=== PATIENT | male | born 1960 | race Caucasian/White ===

== ENCOUNTER 2017-07-14 18:17 | Inpatient (IN) | payer MEDICARE, MEDICAID ==
[2017-07-14] MEDS ORDERED: Cefepime 2 GM in Sodium Chloride 0.9% 100 ML IV ONE (19:39)
[2017-07-14] MEDS ORDERED: Sodium Chloride 0.9% 500 ML IV ONE (19:44)
[2017-07-14] MEDS ORDERED: Piperacillin Sodium/Tazobact 3.375 gm Vial IV ONE (20:21)
--- NOTE | 2017-07-14 20:50 | ER Physician Documentation ---
DATE OF SERVICE: 07/14/2017 EMERGENCY ROOM EVALUATION AND TREATMENT TIME OF EVALUATION: 1919. The patient is a 56-year-old male patient. The patient is a full code patient. No known allergies were detected. He came to the Emergency Room. He was seen by Dr. Nava from [facility] I believe, [facility]. He has allergies, which are none known. He came here because he has a decubitus wound ulcer for checkup, for culture, for treatment, etc. HISTORY OF PRESENT ILLNESS: The patient is noncommunicative. He does not speak anything hence most of the history was taken by looking at the current records that came from the other hospitals. History of present illness could not be obtained and on physical examination, the patient is found to be opening his eyes. He does not answer to any questions. 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 His both lower extremities have sacral boots to prevent decubitus. 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 He has a very tight rigid. He does not move his left hand other than a few inches in the left hand up to the wrist or so. The patient's general examination otherwise shows no edema over the legs. He is adequately built, but poorly nourished. There is no edema, no cyanosis, no petechia, no ecchymosis. Eyes are normal. Conjunctivae pink, sclerae white. Head, ENT appears to be normal. There is no cyanosis, petechia or ecchymosis is noted. Vital signs were taken by the triage nurse shows temperature which is 97.7, pulse of 71, respirations 18, blood pressure 129/70, and 97% saturation. Height is 6 feet 4 inches, weight 250 pounds. HOSPITAL COURSE: The patient's diagnosis that he carries includes that he has Alzheimer's disease. The patient in terms of emergency one needs to contact Dania Calvo [phone]. The patient on examination of the heart reveals that the heart sounds are normal. So, fourth heart sound is heard. Third heart sound is absent. No abnormal murmur, click or rub. No surgical scar on the chest wall. No pacemakers are noted. Lungs reveal trachea to be central. Few crackles audible at the bases, occasional rhonchi is audible. Abdomen is obese, otherwise benign and negative. There is no evidence of any gastric tube. Central nervous system, as I mentioned, disoriented to time and place. Does not speak. The patient does not know where he is. ALLERGIES: Allergies to some vaccine. The patient's list of the diagnosis that came from the [facility] included urinary tract infection, orthostasis, muscle wasting, benign prostatic hypertrophy, epilepsy, peripheral vascular disease, polyneuropathy, morbid obesity. He is morbidly obese, more in the upper extremities, lower extremities are very thin. Has a tattoo scar in the lower extremities. The patient's primary physician is Dr. William Nava. Address is [address] [place] [address]. His office address is [phone]. The [facility] at the [facility] was admitted on 09/02/2016. At that time, he was admitted with the diagnosis of pyelonephritis and perinephric abscess, infected sacral decubitus stage III and febrile status, Alzheimer's dementia, peripheral vascular disease, cataracts. He is diagnosed with dementia and psych disorder. The patient has a . Rehab potential was written as fair. I do not see how he could be recovered. The patient's history and physical which was done on 08/19/2016 showed that he had advanced dementia, who is living in [facility]. He has hypertension, degenerative joint disease, obesity, history of recurrent urinary tract infection and he had been getting wound care physician, who comes to the facility, brought to the Emergency Room after he received a call from the [facility] with fever. Infected decubitus. He has a healthcare marketer. The rest of the diagnosis in the past is same as I mentioned earlier including obesity, dementia, hypertension, peripheral vascular disease, degenerative joint disease, sacral decubitus ulcer, and psychiatric disorder. Medications were reviewed. SOCIAL HISTORY: He was living in the [facility]. In the past, he had stage III ulcers. He had infection with temperature of 103 degrees Fahrenheit that was in 2017. He had a sacrococcygeal decubitus ulcer, stage 3 with the surrounding tissue being marked with edema and some excoriation, infections shows urinary tract infection along with infected decubitus wound. Could not rule out the possibility of pyelonephritis in the presence of history of recurrent urinary tract infection. The patient at that time, may need a decubitus. I am not sure whether decubitus debridement was done or not, but let see if I can find some more data. The patient will be given air mattress and wound care along with Plastic Surgery evaluation. Ultrasound etc. will be done. Nutritional support will be given. ENT consultation will be requested. The patient was given tramadol at that time and other medications, which included hydrochlorothiazide, gabapentin, lactobacillus, Plavix 75 mg, Keppra 500 mg 5 mL q.12 hourly for seizure disorder, Aricept 10 mg once a day, Vasotec 10 mg once a day, Flomax 0.4 mg, Zanaflex 1 mg p.o. 3 times a day, cranberry extract, Prilosec 20 mg once a day, Ballantine 1 tablet p.o. daily 30 minutes before wound treatment. We will monitor seizure activity. Monitor abnormal bleeding. Berry catheter was inserted at that time. Side rails were up at that time. The patient's chest x-ray did not show any pathology, this was on 06/21/2017. Chest x-ray was done in this year, it was found to be negative. Heart size was found to be normal. No infiltrates are seen. No pulmonary edema was seen. Mild spondylosis of the spine was noted. Hand x-rays were done. Fingers are contracted, which limits evaluation. No acute fracture or dislocation was seen. Soft tissues were unremarkable. No erosive changes were seen. Limited exam due to contractures. No obvious acute fracture or dislocation was seen. White count which was done 12/15, was high with shift to the left. Electrolytes showed potassium to be 3.2. KUB showed findings were suggestive for KUV. Chest x-ray shows no acute findings were seen. This was this month only that I am dictating. His lab workup that was done over here. is supposed to be involved in the care of this patient and there was allergic to vaccine was written. In conclusion, the patient has sacroiliac decubitus, ischial decubitus. At present, we will get the culture done and start the patient on antibiotics. IV fluids will be given, IV antibiotics will be given. The patient's other diagnoses include possibility patient had recurrent urinary tract infection that needs to be ruled out again. He might be having some pyelonephritis, one does not know. We will check it out. Quadriplegia with some movements into the left arm, tremors in the left upper arm. Dementia, Alzheimer disease, peripheral vascular disease. The patient has hypertension. Other diagnoses the patient has includes Alzheimer's disease, muscle waste suggesting he has benign prostatic hypertrophy, epilepsy, peripheral vascular disease, peripheral neuropathy, morbid obesity, etc. The patient will be given low air loss mattress for skin management. The patient will get some Ballantine for pain. Berry catheter if Dr. Nava wants it, will be inserted. The patient has obesity, sepsis, hypertension, peripheral vascular disease, psychiatric disorders. The patient needs total care. Most likely, the patient will need admission to the hospital. The patient probably has GERD also. I am not sure why Plavix has been given. I am not sure whether the patient has coronary artery disease or whether it is given for unstable angina. The patient has a stent in. The patient has seizure disorder for which the patient is getting Keppra 500 mg twice a day, Aricept 10 mg once a day at bedtime for dementia, positive for hypertension, Flomax for benign prostatic hypertrophy, Zanaflex 1 tablet 3 times a day for muscle spasm. Cranberry juice for urinary tract infection, Prilosec for GERD. Ballantine, etc has been ordered at the [facility] by Dr. Felipe. Once we get all the results, will give him advice and then go from there. All other workup will be ordered in the computer. The patient will be taken care. JOB# [id number]
[2017-07-14] MEDS ORDERED: Levetiracetam 500 mg/5mL 5mL Vial IV ONE ×2 (21:40→21:47)
[2017-07-14 22:15] LABS: % EOSINOPHILS 0.6 % (0.0-5.0); % LYMPHOCYTES 18.5 % (20.0-50.0); % MONOCYTES 6.9 % (2.0-10.0); EOSINOPHILE ABSOLUTE 0.1 Th/cmm (0.1-0.4); HEMATOCRIT 43.6 % (41.0-60); HEMOGLOBIN 14.3 gm/dL (12-16); LYMPHOCYTE ABSOLUTE 2.6 Th/cmm (1.5-3.0); MEAN CELL VOLUME 89.9 fl (80-99); MEAN CORPUSCULAR HEMOGLOBIN 29.5 pg (26.0-30.0); MEAN CORPUSCULAR HGB CONC 32.8 pg (28.0-36.0); MEAN PLATELET VOLUME 6.7 fl; NEUTROPHILE ABSOLUTE 10.3 Th/cmm (1.8-8.0); PLATELET COUNT 326 Th/cmm (150-400); RED BLOOD COUNT 4.85 Mil/cmm (4.30-5.70); RED CELL DISTRIBUTION WIDTH 12.1 % (11.5-20.0)
[2017-07-14 22:32] LABS: ALBUMIN 3.4 gm/dL (4.2-5.5); ALKALINE PHOSPHATASE 52 U/L (34-104); ANION GAP 6.3 (7.0-16.0); BILIRUBIN,DIRECT 0.11 mg/dL (0.0-0.2); BILIRUBIN,TOTAL 0.4 mg/dL (0.3-1.0); BUN - UREA NITROGEN 9 mg/dL (7-25); CALCIUM SERUM 8.8 mg/dL (8.6-10.3); CARBON DIOXIDE 27.8 mEq/L (21.0-31.0); CHLORIDE 94 mEq/L (98-107); CREATININE - SERUM 0.5 mg/dL (0.7-1.3); GFR AFRICAN-AMERICAN > 60.0 ml/min (>90); GFR NON AFRICAN-AMERICAN > 60.0 ml/min; GLUCOSE 126 mg/dL (70-105); POTASSIUM SERUM 3.1 mEq/L (3.5-5.1); SGOT 13 U/L (13-39); SGPT/ALT 19 U/L (7-52); SODIUM SERUM 125 mEq/L (136-145); TOTAL PROTEIN,SERUM 6.8 gm/dL (6.0-8.3)
[2017-07-14 22:34] LABS: ALB/GLOB RATIO 0.9 (1.0-1.8); ALBUMIN 3.3 gm/dL (4.2-5.5); BILIRUBIN,TOTAL 0.4 mg/dL (0.3-1.0); TOTAL PROTEIN,SERUM 6.8 gm/dL (6.0-8.3)
[2017-07-14 23:22] LABS: BILIRUBIN,DIRECT 0.09 mg/dL (0.0-0.2)
[2017-07-15] MEDS ORDERED: Vancomycin HCl 1.5 GM in Sodium Chloride 0.9% 500 ML IV ONE
[2017-07-15 01:33] VITALS: BP 101/70
[2017-07-15] MEDS ORDERED: Piperacillin Sodium/Tazobact 3.375 gm Vial IV ONE (01:54)
[2017-07-15] MEDS ORDERED: Levetiracetam 500 mg/5mL 5mL Vial IV ONE (01:58)
[2017-07-15 07:16] LABS: % EOSINOPHILS 0.8 % (0.0-5.0); % MONOCYTES 7.2 % (2.0-10.0); EOSINOPHILE ABSOLUTE 0.1 Th/cmm (0.1-0.4); HEMATOCRIT 45.8 % (41.0-60); HEMOGLOBIN 15.2 gm/dL (12-16); LYMPHOCYTE ABSOLUTE 1.5 Th/cmm (1.5-3.0); MEAN CELL VOLUME 91.6 fl (80-99); MEAN CORPUSCULAR HEMOGLOBIN 30.3 pg (26.0-30.0); MEAN CORPUSCULAR HGB CONC 33.1 pg (28.0-36.0); MEAN PLATELET VOLUME 6.7 fl; MONOCYTE ABSOLUTE 0.9 Th/cmm (0.3-1.0); NEUTROPHILE ABSOLUTE 9.9 Th/cmm (1.8-8.0); PLATELET COUNT 322 Th/cmm (150-400); RED CELL DISTRIBUTION WIDTH 12.7 % (11.5-20.0)
[2017-07-15 07:20] LABS: WHITE BLOOD COUNT 12.4 Th/cmm (4.8-10.8)
[2017-07-15 07:33] LABS: INR 1.04 (0.5-1.4); PROTHROMBIN TIME (TEST) 10.8 SECONDS (9.5-11.5)
[2017-07-15 07:39] LABS: ESR SEDIMENTATION SED RATE 22 mm/hr (0-20)
[2017-07-15 07:54] LABS: ALBUMIN 3.4 gm/dL (4.2-5.5); ALKALINE PHOSPHATASE 52 U/L (34-104); ANION GAP 9.7 (7.0-16.0); BILIRUBIN,TOTAL 0.6 mg/dL (0.3-1.0); BUN - UREA NITROGEN 7 mg/dL (7-25); CALCIUM SERUM 9.3 mg/dL (8.6-10.3); CARBON DIOXIDE 29.6 mEq/L (21.0-31.0); CHLORIDE 99 mEq/L (98-107); CREATININE - SERUM 0.5 mg/dL (0.7-1.3); GFR AFRICAN-AMERICAN > 60.0 ml/min (>90); GFR NON AFRICAN-AMERICAN > 60.0 ml/min; GLUCOSE 115 mg/dL (70-105); POTASSIUM SERUM 3.3 mEq/L (3.5-5.1); SGOT 13 U/L (13-39); SGPT/ALT 20 U/L (7-52); SODIUM SERUM 135 mEq/L (136-145); TOTAL PROTEIN,SERUM 6.9 gm/dL (6.0-8.3)
[2017-07-15] MEDS ORDERED: Non-Formulary Item 1 EA (Cranberry [Cranberry] 400 MG) PO SCH (09:00)
--- NOTE | 2017-07-15 09:01 | Diagnostic Imaging Report ---
CHEST X-RAY: AP view INDICATION: Pneumonia COMPARISON: None FINDINGS: Increased interstitial lung markings are noted. Left basal atelectatic changes are noted. There is no focal consolidation or pleural effusions. Heart size is at the upper limits of normal and is accentuated by patient's suboptimal lung zone. Postsurgical changes of the cervical spine are noted. IMPRESSION: Increased interstitial lung markings, nonspecific, however a marginal degree of congestion cannot be excluded. No focal consolidation identified.
[2017-07-15] MEDS: Pantoprazole 40 mg EC Tab PO SCH (09:56)
--- NOTE | 2017-07-15 10:16 | Diagnostic Imaging Report ---
CHEST X-RAY: AP view INDICATION: Pneumonia COMPARISON: 07/14/2017 FINDINGS: Increased interstitial lung markings are noted. No focal consolidation or effusions. Left basal atelectasis noted. Heart size is borderline prominent. IMPRESSION: Increased interstitial lung markings, nonspecific, and may represent a marginal degree of congestion. No focal consolidation identified.
--- NOTE | 2017-07-15 10:42 | General Progress Note ---
Subjective - Review of Systems Service Date: 07/15/17 Events since last encounter: nonhealing right hip ulcer for 2 years, bedridden, incontinent, obese talked to today, consider diverting colostomy and wound vac Objective - Results Result Diagrams: 07/15/17 07:04 07/15/17 07:04 Recent Labs: Laboratory Last Values WBC 12.4 Th/cmm (4.8-10.8) H 07/15/17 07:04 RBC 5.00 Mil/cmm (4.30-5.70) 07/15/17 07:04 Hgb 15.2 gm/dL (12-16) 07/15/17 07:04 Hct 45.8 % (41.0-60) 07/15/17 07:04 MCV 91.6 fl (80-99) 07/15/17 07:04 MCH 30.3 pg (26.0-30.0) H 07/15/17 07:04 MCHC Differential 33.1 pg (28.0-36.0) 07/15/17 07:04 RDW 12.7 % (11.5-20.0) 07/15/17 07:04 Plt Count 322 Th/cmm (150-400) 07/15/17 07:04 MPV 6.7 fl 07/15/17 07:04 Neutrophils % 80.0 % (40.0-80.0) 07/15/17 07:04 Lymphocytes % 12.0 % (20.0-50.0) L 07/15/17 07:04 Monocytes % 7.2 % (2.0-10.0) 07/15/17 07:04 Eosinophils % 0.8 % (0.0-5.0) 07/15/17 07:04 Basophils % 0.0 % (0.0-2.0) 07/15/17 07:04 ESR 22 mm/hr (0-20) H 07/15/17 07:04 PT 10.8 SECONDS (9.5-11.5) 07/15/17 07:04 INR 1.04 (0.5-1.4) 07/15/17 07:04 PTT (Actin FS) 26.6 SECONDS (26.0-38.0) 07/15/17 07:04 Sodium 135 mEq/L (136-145) L 07/15/17 07:04 Potassium 3.3 mEq/L (3.5-5.1) L 07/15/17 07:04 Chloride 99 mEq/L (98-107) 07/15/17 07:04 Carbon Dioxide 29.6 mEq/L (21.0-31.0) 07/15/17 07:04 Anion Gap 9.7 (7.0-16.0) 07/15/17 07:04 BUN 7 mg/dL (7-25) 07/15/17 07:04 Creatinine 0.5 mg/dL (0.7-1.3) L 07/15/17 07:04 Est GFR ( Amer) > 60.0 ml/min (>90) 07/15/17 07:04 Est GFR (Non-Af Amer) > 60.0 ml/min 07/15/17 07:04 BUN/Creatinine Ratio 14.0 07/15/17 07:04 Glucose 115 mg/dL (70-105) H 07/15/17 07:04 POC Glucose 109 MG/DL (70 - 105) H 07/14/17 23:17 Whole Bld Lactic Acid 0.97 mmol/L (0.60-1.99) 07/14/17 22:07 Calcium 9.3 mg/dL (8.6-10.3) 07/15/17 07:04 Total Bilirubin 0.6 mg/dL (0.3-1.0) 07/15/17 07:04 Direct Bilirubin 0.09 mg/dL (0.0-0.2) 07/14/17 22:07 AST 13 U/L (13-39) 07/15/17 07:04 ALT 20 U/L (7-52) 07/15/17 07:04 Alkaline Phosphatase 52 U/L (34-104) 07/15/17 07:04 Troponin I < 0.01 ng/mL (0.01-0.05) L 07/14/17 22:07 B-Natriuretic Peptide 10.4 pg/mL (5.0-100.0) 07/14/17 22:07 Total Protein 6.9 gm/dL (6.0-8.3) 07/15/17 07:04 Albumin 3.4 gm/dL (4.2-5.5) L 07/15/17 07:04 Globulin 3.5 gm/dL 07/15/17 07:04 Albumin/Globulin Ratio 1.0 (1.0-1.8) 07/15/17 07:04 - Physical Exam Vitals and I&O: Vital Signs Temp 97.9 F 07/15/17 04:00 Pulse 81 07/15/17 09:54 Resp 19 07/15/17 04:00 BP 122/71 07/15/17 09:54 Pulse Ox 97 07/15/17 04:00 Intake & Output 07/14/17 07/15/17 07/15/17 18:59 06:59 18:59 Intake Total 150 Output Total 1700 Balance -1550 Weight (lbs) 111.584 kg Intake: Intake, IV Amount 50 Piperacillin Sodium/ 50 Tazobact 3.375 gm In Sodium Chloride 0.9% 50 ml @ 100 mls/hr IV Q6H [facility] Rx#:[id number] Oral 100 Output: Urine 1700 Active Medications: Current Medications Acetaminophen (Tylenol) 650 mg PO Q6H PRN PRN Reason: Mild Pain/Headache/T above 101 Stop: 09/12/17 22:10 Acetaminophen/Hydrocodone Bitart ([place] 10 Mg/325 Mg) 1 tab PO Q6H PRN PRN Reason: Moderate Pain Stop: 09/12/17 22:10 Docusate Sodium (Colace) 100 mg PO DAILY [facility] Stop: 09/13/17 08:59 Last Admin: 07/15/17 09:56 Dose: 100 mg Donepezil HCl (Aricept) 10 mg PO HS [facility] Stop: 09/13/17 20:59 Enalapril Maleate (Vasotec) 10 mg PO DAILY [facility] Stop: 09/13/17 08:59 Last Admin: 07/15/17 09:54 Dose: 10 mg Gabapentin (Neurontin) 800 mg PO TID [facility] Stop: 09/13/17 08:59 Last Admin: 07/15/17 09:56 Dose: 800 mg Levetiracetam 500 mg/ Sodium (Chloride) 105 mls @ 400 mls/hr IV Q12H [facility] Stop: 09/12/17 19:44 Piperacillin Sod/Tazobactam (Sod 3.375 gm/ Sodium Chloride) 50 mls @ 100 mls/ hr IV Q6H [facility] Stop: 09/13/17 02:59 Last Admin: 07/15/17 09:53 Dose: 100 mls/hr Vancomycin HCl 2 gm/ Sodium (Chloride) 500 mls @ 250 mls/hr IV Q12HR [facility] Stop: 09/13/17 09:59 Levetiracetam (Keppra) 500 mg PO BID [facility] Stop: 09/13/17 08:59 Miscellaneous (Cranberry [Cranberry]) 400 mg PO DAILY [facility] Stop: 09/13/17 08:59 Miscellaneous (Vancomycin Iv Per Pharmacy) 1 ea PRN PRN PRN Reason: PROTOCOL Stop: 09/12/17 22:14 Ondansetron HCl (Zofran) 4 mg IVP Q6H PRN PRN Reason: Nausea / Vomiting Stop: 09/12/17 22:10 Pantoprazole Sodium (Protonix) 40 mg PO DAILY [facility] Stop: 09/13/17 08:59 Last Admin: 07/15/17 09:56 Dose: 40 mg Sodium Chloride (Saline Flush) 10 ml IV QSHIFT [facility] Stop: 09/13/17 07:59 Last Admin: 07/15/17 10:04 Dose: 10 ml Tamsulosin HCl (Flomax) 0.4 mg PO DAILY [facility] Stop: 09/13/17 08:59 Last Admin: 07/15/17 09:56 Dose: 0.4 mg Tizanidine HCl (Zanaflex) 4 mg PO TID [facility] Stop: 09/13/17 08:59 Last Admin: 07/15/17 09:55 Dose: 4 mg Zolpidem Tartrate (Ambien) 10 mg PO HS PRN PRN Reason: Insomnia Stop: 09/12/17 22:10
--- NOTE | 2017-07-15 15:29 | History & Physical ---
ADMIT DATE: 07/14/2017 CHIEF COMPLAINT: Sent to Emergency Room for evaluation of infected nonhealing sacral and ischial pressure ulcer. HISTORY OF PRESENT ILLNESS: A 56-year-old male who is a resident of [facility], has history of hypertension, dementia, DJD, obesity, history of peripheral vascular disease, and bowel obstruction; presented to Emergency Room from [facility] for evaluation of infected decubitus wound of his back. After being evaluated, the patient is admitted to the hospital for further treatment. Due to his underlying illness, the patient does not provide meaningful history. PAST MEDICAL HISTORY: Remarkable for: 1. Hypertension. 2. DJD. 3. Obesity. 4. History of recurrent UTI. 5. Peripheral vascular disease. 6. History of bowel obstruction. 7. Psychotic disorder. MEDICATIONS AT HOME: The patient is taking multiple medications, which includes Plavix, hydrochlorothiazide, [place], tramadol, cranberry, Colace, Aricept, Vasotec, gabapentin, Keppra, omeprazole, Flomax, and Zanaflex. ALLERGIES: The patient is allergic to not any medication, but PNEUMONIA VACCINE. SOCIAL HISTORY: The patient is a resident of [facility]. No history of smoking cigarette, alcohol, or drug use. FAMILY MEDICAL HISTORY: Unavailable. REVIEW OF SYSTEMS: Unable to obtain. PHYSICAL EXAMINATION: GENERAL: A 56-year-old moderately obese, lying in the bed, nonverbal. VITAL SIGNS: Temperature 99.2, pulse 84, respiratory rate is 18, and blood pressure 101/70. HEENT: Normocephalic, atraumatic. Extraocular muscles are intact. Tongue was pink and coated. Poor dentition noted. No oral lesion, no exudate. No sinus tenderness. NECK: Supple, no JVD, no hepatojugular reflux, no lymphadenopathy, thyromegaly, or a carotid bruit. HEART: Both heart sounds are regular. No S3, no S4, no murmur. CHEST AND LUNGS: Equal in expansion, no wheezing, no crackles. ABDOMEN: Protuberant and soft. No guarding, no rigidity. Bowel sounds are present. No palpable mass. EXTREMITIES: No edema, no cyanosis. Peripheral pulses +1. BACK: Remarkable for right hip ulcer as well as a sacral decubitus ulcer with tunneling noted. AVAILABLE LABORATORY DATA AND DIAGNOSTIC DATA: White count of 12.4, hemoglobin 15.2, and platelet count 322. Sodium 135, potassium 3.5, chloride 99, CO2 29.6, BUN and creatinine are 7 and 0.5. Chest x-ray, no infiltrate, no congestion. CLINICAL IMPRESSION: 1. Infected decubitus ulcer, needs surgical debridement and diverting colostomy and further management. 2. Hypertension. 3. Dementia. 4. Degenerative joint disease. 5. Peripheral vascular disease. 6. Benign prostatic hypertrophy. 7. History of bowel obstruction. PLAN: 1. Admit this patient to [facility] floor. 2. Surgical consult. 3. Infectious Disease consultation. 4. IV antibiotic. 5. Wound care consult. 6. Appropriate home medicine reconciliation. 7. General nursing care. 8. Follow lab. 9. Follow consult recommendation. 10. Care plan reviewed and discussed with staff as well as the patient's . JOB# [id number]
[2017-07-15 18:34] LABS: URINE MICROSCOPIC INDICATED? YES; URINE SOURCE FOLEY PORT
[2017-07-15 18:36] LABS: URINE BILIRUBIN NEGATIVE (NEGATIVE); URINE BLOOD TRACE (NEGATIVE); URINE GLUCOSE (UA) NEGATIVE (NEGATIVE); URINE KETONE NEGATIVE (NEGATIVE); URINE LEUKOCYTE ESTERASE MODERATE (NEGATIVE); URINE NITRATE NEGATIVE (NEGATIVE); URINE PROTEIN 100 mg/dL (NEGATIVE); URINE UROBILINOGEN 0.2 E.U./dL (0.2 - 1.0)
[2017-07-15 18:43] LABS: URINE CLARITY HAZY (CLEAR); URINE COLOR STRAW
[2017-07-15 18:45] LABS: URINE BACTERIA NONE SEEN /hpf (NONE SEEN); URINE EPITHELIAL CELLS NONE SEEN /lpf (FEW)
--- NOTE | 2017-07-16 01:06 | Consultation ---
DATE OF CONSULTATION: 07/15/2017 REFERRING PHYSICIAN: Dr. William Nava. REASON FOR CONSULTATION: Leukocytosis. HISTORY OF PRESENT ILLNESS: The patient is a 56-year-old male with a past medical history of severe dementia and bedridden status and developed a right gluteal ulcer in October 2015. Since then, the wound has not healed. He had multiple treatment modalities tried. Ultimately, he was brought this time to the [facility] for evaluation of the wound and possible diverting colostomy. Dr. Dacosta was called and has plan for diverting colostomy. He will discuss with the family and will go from there. On initial evaluation, the patient's temperature was 97.7 degrees Fahrenheit and WBC count was 14,000. The patient also carries a history of UTI. Antibiotic solitario, currently the patient is receiving Zosyn and vancomycin. PAST MEDICAL HISTORY: Includes severe dementia, bedridden status, history of UTIs, chronic right gluteal wound, osteoarthritis, contractures of extremities, history of pyelonephritis and perinephric abscess, hypertension, obesity, DVT, seizure disorder. ALLERGIES: PNEUMONIA VACCINE. MEDICATIONS: Per medication reconciliation sheet. Antibiotic solitario, the patient receiving vancomycin and Zosyn. SOCIAL HISTORY: The patient lives at nursing facility. No history of smoking, alcohol or drug use. FAMILY HISTORY: Not available. REVIEW OF SYSTEMS: The patient unable to give any history. So far, the patient has no fever. PHYSICAL EXAMINATION: VITAL SIGNS: Shows temperature is 97.9, pulse 81, respirations 19, blood pressure 122/71. GENERAL: The patient is comfortable lying in the bed, not in acute distress. HEENT: Head is normocephalic, atraumatic. Oral cavity moist, pink tongue. Eyes: No pallor, no icterus. Pupils are PERRLA. EOMI. NECK: Supple. No JVD. No carotid bruit. Trachea in midline. CHEST: Bilateral breath sounds. No crackles or wheezing. HEART: S1, S2 within normal limits. Regular rhythm. No murmur, no gallop. ABDOMEN: Soft, nontender, nondistended. Bowel sounds present. EXTREMITIES: No cyanosis, no clubbing, no edema. The patient has contractures of all four extremities, mainly in the lower extremities. SKIN: The patient has excoriation, redness around the right gluteal wound, stage 3. LABORATORY DATA: Current lab shows WBC count is 12,400, hemoglobin 15.2, hematocrit 45.8, platelets are 222,000, neutrophils 80%. Sodium 135, potassium 3.3, chloride 99, bicarbonate is 29.6, BUN is 7, creatinine 0.5, glucose 115. IMPRESSION: 1. Leukocytosis. 2. Right gluteal cellulitis with decubitus ulcer, stage 3. 3. Severe dementia. 4. Obesity. 5. Hypertension. 6. Seizure disorder. RECOMMENDATIONS: We will continue vancomycin and Zosyn, wound care. Dr. Dacosta has decided to do a diverting colostomy. Meanwhile, check urinalysis and urine culture. Follow up chest x-ray. If needed, we will check renal ultrasound. We will follow up on the renal abscess and pyelonephritis ____. ADDENDUM: Chest x-ray shows congestion and chronic interstitial markings. Thank you, Dr. Nava for involving me in taking care of this patient. JOB# [id number]
--- NOTE | 2017-07-16 09:41 | Diagnostic Imaging Report ---
Renal ultrasound HISTORY: Hydronephrosis. COMPARISON: None Technique: Sonography of the kidneys and urinary bladder was performed in multiple planes. FINDINGS: Exam is limited due to bowel gas and body habitus. The right kidney measures 13.0 x 6.5 cm. The left kidney measures 14.1 x 7.5 cm. The renal margins along well defined, however, no evidence of focal lesions or hydronephrosis. Urinary bladder is collapsed containing a Berry catheter. IMPRESSION: Limited exam due to bowel gas pattern body habitus. No evidence of hydronephrosis. Mild increased renal sizes, please correlate with renal function tests
[2017-07-16] MEDS: Pantoprazole 40 mg EC Tab PO SCH (10:08)
--- NOTE | 2017-07-16 11:20 | General Progress Note ---
Subjective - Review of Systems Service Date: 07/16/17 Events since last encounter: discussed informed consent with . patient needs diverting colostomy, debridement and wound vac agrees, will notify Objective - Results Result Diagrams: 07/15/17 07:04 07/15/17 07:04 Recent Labs: Laboratory Last Values WBC 12.4 Th/cmm (4.8-10.8) H 07/15/17 07:04 RBC 5.00 Mil/cmm (4.30-5.70) 07/15/17 07:04 Hgb 15.2 gm/dL (12-16) 07/15/17 07:04 Hct 45.8 % (41.0-60) 07/15/17 07:04 MCV 91.6 fl (80-99) 07/15/17 07:04 MCH 30.3 pg (26.0-30.0) H 07/15/17 07:04 MCHC Differential 33.1 pg (28.0-36.0) 07/15/17 07:04 RDW 12.7 % (11.5-20.0) 07/15/17 07:04 Plt Count 322 Th/cmm (150-400) 07/15/17 07:04 MPV 6.7 fl 07/15/17 07:04 Neutrophils % 80.0 % (40.0-80.0) 07/15/17 07:04 Lymphocytes % 12.0 % (20.0-50.0) L 07/15/17 07:04 Monocytes % 7.2 % (2.0-10.0) 07/15/17 07:04 Eosinophils % 0.8 % (0.0-5.0) 07/15/17 07:04 Basophils % 0.0 % (0.0-2.0) 07/15/17 07:04 ESR 22 mm/hr (0-20) H 07/15/17 07:04 PT 10.8 SECONDS (9.5-11.5) 07/15/17 07:04 INR 1.04 (0.5-1.4) 07/15/17 07:04 PTT (Actin FS) 26.6 SECONDS (26.0-38.0) 07/15/17 07:04 Sodium 135 mEq/L (136-145) L 07/15/17 07:04 Potassium 3.3 mEq/L (3.5-5.1) L 07/15/17 07:04 Chloride 99 mEq/L (98-107) 07/15/17 07:04 Carbon Dioxide 29.6 mEq/L (21.0-31.0) 07/15/17 07:04 Anion Gap 9.7 (7.0-16.0) 07/15/17 07:04 BUN 7 mg/dL (7-25) 07/15/17 07:04 Creatinine 0.5 mg/dL (0.7-1.3) L 07/15/17 07:04 Est GFR ( Amer) > 60.0 ml/min (>90) 07/15/17 07:04 Est GFR (Non-Af Amer) > 60.0 ml/min 07/15/17 07:04 BUN/Creatinine Ratio 14.0 07/15/17 07:04 Glucose 115 mg/dL (70-105) H 07/15/17 07:04 POC Glucose 109 MG/DL (70 - 105) H 07/14/17 23:17 Whole Bld Lactic Acid 0.97 mmol/L (0.60-1.99) 07/14/17 22:07 Calcium 9.3 mg/dL (8.6-10.3) 07/15/17 07:04 Total Bilirubin 0.6 mg/dL (0.3-1.0) 07/15/17 07:04 Direct Bilirubin 0.09 mg/dL (0.0-0.2) 07/14/17 22:07 AST 13 U/L (13-39) 07/15/17 07:04 ALT 20 U/L (7-52) 07/15/17 07:04 Alkaline Phosphatase 52 U/L (34-104) 07/15/17 07:04 Troponin I < 0.01 ng/mL (0.01-0.05) L 07/14/17 22:07 B-Natriuretic Peptide 10.4 pg/mL (5.0-100.0) 07/14/17 22:07 Total Protein 6.9 gm/dL (6.0-8.3) 07/15/17 07:04 Albumin 3.4 gm/dL (4.2-5.5) L 07/15/17 07:04 Globulin 3.5 gm/dL 07/15/17 07:04 Albumin/Globulin Ratio 1.0 (1.0-1.8) 07/15/17 07:04 Urine Source [place] 07/15/17 16:30 Urine Color STRAW 07/15/17 16:30 Urine Clarity HAZY (CLEAR) 07/15/17 16:30 Urine pH 7.0 (4.6 - 8.0) 07/15/17 16:30 Ur Specific [place] 1.010 (1.005-1.030) 07/15/17 16:30 Urine Protein 100 mg/dL (NEGATIVE) H 07/15/17 16:30 Urine Glucose (UA) NEGATIVE mg/dL (NEGATIVE) 07/15/17 16:30 Urine Ketones NEGATIVE mg/dL (NEGATIVE) 07/15/17 16:30 Urine Blood TRACE (NEGATIVE) 07/15/17 16:30 Urine Nitrate NEGATIVE (NEGATIVE) 07/15/17 16:30 Urine Bilirubin NEGATIVE (NEGATIVE) 07/15/17 16:30 Urine Urobilinogen 0.2 E.U./dL (0.2 - 1.0) 07/15/17 16:30 Ur Leukocyte Esterase MODERATE (NEGATIVE) H 07/15/17 16:30 Urine RBC 2-5 /hpf (0-5) H 07/15/17 16:30 Urine WBC 6-10 /hpf (0-5) 07/15/17 16:30 Ur Epithelial Cells NONE SEEN /lpf (FEW) 07/15/17 16:30 Urine Bacteria NONE SEEN /hpf (NONE SEEN) 07/15/17 16:30 Vancomycin Trough 21.7 ug/mL (10-20) H 07/16/17 08:00 - Physical Exam Vitals and I&O: Vital Signs Temp 96.9 F 07/16/17 09:00 Pulse 71 07/16/17 10:07 Resp 17 07/16/17 09:00 BP 142/77 07/16/17 10:07 Pulse Ox 95 07/16/17 09:00 Intake & Output 07/15/17 07/16/17 07/16/17 17:59 06:59 18:59 Intake Total Output Total Balance Weight (lbs) Intake: Intake, IV Amount Piperacillin Sodium/ Tazobact 3.375 gm In Sodium Chloride 0.9% 50 ml @ 100 mls/hr IV Q6H [facility] Rx#:[id number] Vancomycin HCl 2 gm In Sodium Chloride 0.9% 500 ml @ 250 mls/hr IV Q12HR [facility] Rx#:[id number] Oral Output: Urine Stool Other: # Bowel Movements Stool Characteristics Active Medications: Current Medications Acetaminophen (Tylenol) 650 mg PO Q6H PRN PRN Reason: Mild Pain/Headache/T above 101 Stop: 09/12/17 22:10 Acetaminophen/Hydrocodone Bitart ([place] 10 Mg/325 Mg) 1 tab PO Q6H PRN PRN Reason: Moderate Pain Stop: 09/12/17 22:10 Docusate Sodium (Colace) 100 mg PO DAILY JOSEFA Stop: 09/13/17 08:59 Last Admin: 07/16/17 10:07 Dose: 100 mg Donepezil HCl (Aricept) 10 mg PO HS [facility] Stop: 09/13/17 20:59 Last Admin: 07/15/17 21:26 Dose: 10 mg Enalapril Maleate (Vasotec) 10 mg PO DAILY JOSEFA Stop: 09/13/17 08:59 Last Admin: 07/16/17 10:07 Dose: 10 mg Gabapentin (Neurontin) 800 mg PO TID JOSEFA Stop: 09/13/17 08:59 Last Admin: 07/16/17 10:08 Dose: 800 mg Piperacillin Sod/Tazobactam (Sod 3.375 gm/ Sodium Chloride) 50 mls @ 100 mls/ hr IV Q6H [facility] Stop: 09/13/17 02:59 Last Admin: 07/16/17 10:09 Dose: 100 mls/hr Vancomycin HCl 1.5 gm/ Sodium (Chloride) 250 mls @ 250 mls/hr IV Q12HR [facility] Stop: 09/14/17 08:59 Last Admin: 07/16/17 11:02 Dose: 250 mls/hr Levetiracetam (Keppra) 500 mg PO BID [facility]SE[facility] Stop: 09/13/17 08:59 Last Admin: 07/16/17 10:08 Dose: 500 mg Miscellaneous (Vancomycin Iv Per Pharmacy) 1 ea [facility] PRN PRN PRN Reason: PROTOCOL Stop: 09/12/17 22:14 Ondansetron HCl (Zofran) 4 mg IVP Q6H PRN PRN Reason: Nausea / Vomiting Stop: 09/12/17 22:10 Pantoprazole Sodium (Protonix) 40 mg PO DAILY [facility] Stop: 09/13/17 08:59 Last Admin: 07/16/17 10:08 Dose: 40 mg Sodium Chloride (Saline Flush) 10 ml IV QSHIFT [facility] Stop: 09/13/17 07:59 Last Admin: 07/16/17 11:02 Dose: 10 ml Tamsulosin HCl (Flomax) 0.4 mg PO DAILY [facility] Stop: 09/13/17 08:59 Last Admin: 07/16/17 10:09 Dose: 0.4 mg Tizanidine HCl (Zanaflex) 4 mg PO TID [facility] Stop: 09/13/17 08:59 Last Admin: 07/16/17 10:09 Dose: 4 mg Zolpidem Tartrate (Ambien) 10 mg PO HS PRN PRN Reason: Insomnia Stop: 09/12/17 22:10
[2017-07-16] MEDS: D5-0.9%NS 1,000 ML IV SCH (12:13)
--- NOTE | 2017-07-16 15:49 | Consultation ---
DATE OF CONSULTATION: 07/15/2017 REFERRING PHYSICIAN: Dr. Nava. REASON FOR CONSULTATION: 1. Right hip decubitus ulcer. 2. Incontinence. 3. Bedridden status. Thank you for referring this patient to me. HISTORY OF PRESENT ILLNESS: This is a 56-year-old male who resides in a correction with history of dementia, obesity, peripheral vascular disease, bowel obstruction, and hypertension. Per information from , the patient has had nonhealing ulcer of the right hip area, close to the midline for over 2 years. Plastic surgeon has seen the patient and at one time, recommended a plastic closure of the wound. She was told about possible complications that might not result well in healing. The patient is incontinent, unable to communicate and is very heavy. LABORATORY STUDIES: On this admission, the WBC was 14,000. Chemistry: Potassium is slightly low at 3.1. Blood sugar 126, otherwise the rest of liver function were normal. Chest x-ray shows increased interstitial lung markings with marginal degree of CHF with marginal degree of congestion. PHYSICAL EXAMINATION: GENERAL: The patient is unable to communicate. He is extremely obese. At time of examination, he has a very deep ulcer in the right hip close to the midline and on introducing a finger, this appears to likely involve the bone. He is a full of stool now and patient care people are going to clean him up. The was called over the phone. In view of the incontinence, the patient is very heavy and being difficult to turn around and unable to communicate as well, a longstanding ulcer, which has not healed in 2 years, I have recommended a diverting colostomy, debridement of the ulcer and application of wound VAC. JOB# [id number]
[2017-07-16] MEDS ORDERED: Potassium Chloride 20 mEq ER Tab PO ONE (17:49)
--- NOTE | 2017-07-17 00:01 | Infectious Disease Prog Note ---
Infectious Disease Subjective - Review of Systems Service Date: 07/16/17 Subjective: There is no new change, no fever. Infectious Disease Objective - Results Result Diagrams: 07/15/17 07:04 07/15/17 07:04 Recent Labs: Laboratory Last Values WBC 12.4 Th/cmm (4.8-10.8) H 07/15/17 07:04 RBC 5.00 Mil/cmm (4.30-5.70) 07/15/17 07:04 Hgb 15.2 gm/dL (12-16) 07/15/17 07:04 Hct 45.8 % (41.0-60) 07/15/17 07:04 MCV 91.6 fl (80-99) 07/15/17 07:04 MCH 30.3 pg (26.0-30.0) H 07/15/17 07:04 MCHC Differential 33.1 pg (28.0-36.0) 07/15/17 07:04 RDW 12.7 % (11.5-20.0) 07/15/17 07:04 Plt Count 322 Th/cmm (150-400) 07/15/17 07:04 MPV 6.7 fl 07/15/17 07:04 Neutrophils % 80.0 % (40.0-80.0) 07/15/17 07:04 Lymphocytes % 12.0 % (20.0-50.0) L 07/15/17 07:04 Monocytes % 7.2 % (2.0-10.0) 07/15/17 07:04 Eosinophils % 0.8 % (0.0-5.0) 07/15/17 07:04 Basophils % 0.0 % (0.0-2.0) 07/15/17 07:04 ESR 22 mm/hr (0-20) H 07/15/17 07:04 PT 10.8 SECONDS (9.5-11.5) 07/15/17 07:04 INR 1.04 (0.5-1.4) 07/15/17 07:04 PTT (Actin FS) 26.6 SECONDS (26.0-38.0) 07/15/17 07:04 Sodium 135 mEq/L (136-145) L 07/15/17 07:04 Potassium 3.3 mEq/L (3.5-5.1) L 07/15/17 07:04 Chloride 99 mEq/L (98-107) 07/15/17 07:04 Carbon Dioxide 29.6 mEq/L (21.0-31.0) 07/15/17 07:04 Anion Gap 9.7 (7.0-16.0) 07/15/17 07:04 BUN 7 mg/dL (7-25) 07/15/17 07:04 Creatinine 0.5 mg/dL (0.7-1.3) L 07/15/17 07:04 Est GFR ( Amer) > 60.0 ml/min (>90) 07/15/17 07:04 Est GFR (Non-Af Amer) > 60.0 ml/min 07/15/17 07:04 BUN/Creatinine Ratio 14.0 07/15/17 07:04 Glucose 115 mg/dL (70-105) H 07/15/17 07:04 POC Glucose 109 MG/DL (70 - 105) H 07/14/17 23:17 Whole Bld Lactic Acid 0.97 mmol/L (0.60-1.99) 07/14/17 22:07 Calcium 9.3 mg/dL (8.6-10.3) 07/15/17 07:04 Total Bilirubin 0.6 mg/dL (0.3-1.0) 07/15/17 07:04 Direct Bilirubin 0.09 mg/dL (0.0-0.2) 07/14/17 22:07 AST 13 U/L (13-39) 07/15/17 07:04 ALT 20 U/L (7-52) 07/15/17 07:04 Alkaline Phosphatase 52 U/L (34-104) 07/15/17 07:04 Troponin I < 0.01 ng/mL (0.01-0.05) L 07/14/17 22:07 B-Natriuretic Peptide 10.4 pg/mL (5.0-100.0) 07/14/17 22:07 Total Protein 6.9 gm/dL (6.0-8.3) 07/15/17 07:04 Albumin 3.4 gm/dL (4.2-5.5) L 07/15/17 07:04 Globulin 3.5 gm/dL 07/15/17 07:04 Albumin/Globulin Ratio 1.0 (1.0-1.8) 07/15/17 07:04 Urine Source [place] 07/15/17 16:30 Urine Color STRAW 07/15/17 16:30 Urine Clarity HAZY (CLEAR) 07/15/17 16:30 Urine pH 7.0 (4.6 - 8.0) 07/15/17 16:30 Ur Specific [place] 1.010 (1.005-1.030) 07/15/17 16:30 Urine Protein 100 mg/dL (NEGATIVE) H 07/15/17 16:30 Urine Glucose (UA) NEGATIVE mg/dL (NEGATIVE) 07/15/17 16:30 Urine Ketones NEGATIVE mg/dL (NEGATIVE) 07/15/17 16:30 Urine Blood TRACE (NEGATIVE) 07/15/17 16:30 Urine Nitrate NEGATIVE (NEGATIVE) 07/15/17 16:30 Urine Bilirubin NEGATIVE (NEGATIVE) 07/15/17 16:30 Urine Urobilinogen 0.2 E.U./dL (0.2 - 1.0) 07/15/17 16:30 Ur Leukocyte Esterase MODERATE (NEGATIVE) H 07/15/17 16:30 Urine RBC 2-5 /hpf (0-5) H 07/15/17 16:30 Urine WBC 6-10 /hpf (0-5) 07/15/17 16:30 Ur Epithelial Cells NONE SEEN /lpf (FEW) 07/15/17 16:30 Urine Bacteria NONE SEEN /hpf (NONE SEEN) 07/15/17 16:30 Vancomycin Trough 21.7 ug/mL (10-20) H 07/16/17 08:00 - Physical Exam Vitals and I&O: Vital Signs Temp 98.8 F 07/16/17 20:00 Pulse 67 07/16/17 20:00 Resp 18 07/16/17 20:00 BP 102/64 07/16/17 20:00 Pulse Ox 96 07/16/17 20:00 Intake & Output 07/16/17 07/16/17 07/17/17 06:59 18:59 06:59 Intake Total 350 Output Total Balance 350 Weight (lbs) Intake: Intake, IV Amount 350 Piperacillin Sodium/ 100 Tazobact 3.375 gm In Sodium Chloride 0.9% 50 ml @ 100 mls/hr IV Q6H [facility] Rx#:[id number] Vancomycin HCl 1.5 gm In 250 Sodium Chloride 0.9% 250 ml @ 250 mls/hr IV Q12HR [facility] Rx#:[id number] Vancomycin HCl 2 gm In Sodium Chloride 0.9% 500 ml @ 250 mls/hr IV Q12HR [facility] Rx#:[id number] Oral Output: Urine Stool Other: # Bowel Movements Active Medications: Current Medications Acetaminophen (Tylenol) 650 mg PO Q6H PRN PRN Reason: Mild Pain/Headache/T above 101 Stop: 09/12/17 22:10 Acetaminophen/Hydrocodone Bitart ([place] 10 Mg/325 Mg) 1 tab PO Q6H PRN PRN Reason: Moderate Pain Stop: 09/12/17 22:10 Docusate Sodium (Colace) 100 mg PO DAILY [facility]SE[facility] Stop: 09/13/17 08:59 Last Admin: 07/16/17 10:07 Dose: 100 mg Donepezil HCl (Aricept) 10 mg PO HS [facility] Stop: 09/13/17 20:59 Last Admin: 07/16/17 22:04 Dose: 10 mg Enalapril Maleate (Vasotec) 10 mg PO DAILY [facility] Stop: 09/13/17 08:59 Last Admin: 07/16/17 10:07 Dose: 10 mg Gabapentin (Neurontin) 800 mg PO TID [facility] Stop: 09/13/17 08:59 Last Admin: 07/16/17 22:03 Dose: 800 mg Piperacillin Sod/Tazobactam (Sod 3.375 gm/ Sodium Chloride) 50 mls @ 100 mls/ hr IV Q6H [facility] Stop: 09/13/17 02:59 Last Admin: 07/16/17 21:21 Dose: 100 mls/hr Vancomycin HCl 1.5 gm/ Sodium (Chloride) 250 mls @ 250 mls/hr IV Q12HR [facility] Stop: 09/14/17 08:59 Last Admin: 07/16/17 22:03 Dose: 250 mls/hr Dextrose/Sodium Chloride (D5-0.9%Ns) 1,000 mls @ 75 mls/hr IV .[id number] [facility]SE[facility] Stop: 09/14/17 11:59 Last Admin: 07/16/17 12:13 Dose: 75 mls/hr Levetiracetam (Keppra) 500 mg PO BID [facility] Stop: 09/13/17 08:59 Last Admin: 07/16/17 18:05 Dose: 500 mg Miscellaneous (Vancomycin Iv Per Pharmacy) 1 ea [facility] PRN PRN PRN Reason: PROTOCOL Stop: 09/12/17 22:14 Mupirocin (Bactroban Oint) 1 appl NS BID [facility] Stop: 07/21/17 17:01 Ondansetron HCl (Zofran) 4 mg IVP Q6H PRN PRN Reason: Nausea / Vomiting Stop: 09/12/17 22:10 Pantoprazole Sodium (Protonix) 40 mg PO DAILY [facility] Stop: 09/13/17 08:59 Last Admin: 07/16/17 10:08 Dose: 40 mg Sodium Chloride (Saline Flush) 10 ml IV QSHIFT [facility] Stop: 09/13/17 07:59 Last Admin: 07/16/17 21:20 Dose: Not Given Tamsulosin HCl (Flomax) 0.4 mg PO DAILY [facility] Stop: 09/13/17 08:59 Last Admin: 07/16/17 10:09 Dose: 0.4 mg Tizanidine HCl (Zanaflex) 4 mg PO TID [facility] Stop: 09/13/17 08:59 Last Admin: 07/16/17 22:04 Dose: 4 mg Zolpidem Tartrate (Ambien) 10 mg PO HS PRN PRN Reason: Insomnia Stop: 09/12/17 22:10 General: no acute distress, well developed, well nourished HEENT: atraumatic, normocephalic, PERRLA Neck: supple, thyromegaly Cardiovascular: S1S2, regular Lungs: clear to auscultation bilaterally, clear to percussion Abdomen: soft, other (right gluteal wound stage 3, there i smild surrounding erythema.), no tender, no distended, no mass Extremities: no cyanosis, no clubbing, no edema Neurological: awake, other (unable to communicate.) Infectious Disease Assmt/Plan - Assessment Assessment: 1. Leukocytosis. 2. Right gluteal cellulitis with decubitus ulcer, stage 3. 3. Severe dementia. 4. Obesity. 5. Hypertension. 6. Seizure disorder. - Plan Plan: Continue vancomycin and Zosyn, wound care.
[2017-07-17] MEDS: D5-0.9%NS 1,000 ML IV SCH (02:56)
[2017-07-17] MEDS ORDERED: Venelex 60gm Tube TP ONE (07:56)
--- NOTE | 2017-07-17 08:55 | Progress Notes ---
DATE: 07/16/2017 PATIENT IDENTIFICATION: A 56-year-old male. SUBJECTIVE: The patient was seen and examined. The patient is lying in the bed. The patient is seen by surgeon who recommended to go for a diverting colostomy with debridement. Family is agreeable. The patient is nonverbal. PHYSICAL EXAMINATION: VITAL SIGNS: On today's exam, temperature is 98, pulse is 74, respiratory rate 18, blood pressure 142/77. HEENT: No facial asymmetry. NECK: Supple, no JVD. HEART: Regular. CHEST: Lung equal in expansion. LUNGS: No wheezing, no crackles. ABDOMEN: Soft. No guarding, rigidity. Bowel sounds are present. EXTREMITIES: No edema. BACK: Exam is remarkable for ischial and sacral decubitus wound noted. CLINICAL IMPRESSION: 1. Infected decubitus wound, needs further treatment. 2. Hypertension. 3. Alzheimer dementia. 4. Obesity. 5. Coronary artery disease. 6. Peripheral vascular disease. 7. Degenerative joint disease. 8. Required total care. PLAN: 1. IV antibiotic for now. 2. Debridement and colostomy as per Dr. Dacosta. 3. Continue to provide general nursing care along with medication management and symptoms management. Follow the lab and follow consult recommendations. Care plan reviewed and discussed with staff. JOB# [id number]
[2017-07-17] MEDS ORDERED: fentaNYL Citrate 100 mcg/2mL Vial ONE (10:12)
[2017-07-17] MEDS: Pantoprazole 40 mg EC Tab PO SCH (10:17)
[2017-07-17] MEDS ORDERED: Neostigmine 10mg/10mL Vial ONE (10:33)
[2017-07-17] MEDS ORDERED: Propofol **SURGERY USE ONLY** 20 ML IV ONE (10:33)
--- NOTE | 2017-07-17 15:06 | Infectious Disease Prog Note ---
Infectious Disease Subjective - Review of Systems Service Date: 07/17/17 Events since last encounter: Colostomy was performed this am. Subjective: There is no new change, no fever. Infectious Disease Objective - Results Result Diagrams: 07/15/17 07:04 07/15/17 07:04 Recent Labs: Laboratory Last Values WBC 12.4 Th/cmm (4.8-10.8) H 07/15/17 07:04 RBC 5.00 Mil/cmm (4.30-5.70) 07/15/17 07:04 Hgb 15.2 gm/dL (12-16) 07/15/17 07:04 Hct 45.8 % (41.0-60) 07/15/17 07:04 MCV 91.6 fl (80-99) 07/15/17 07:04 MCH 30.3 pg (26.0-30.0) H 07/15/17 07:04 MCHC Differential 33.1 pg (28.0-36.0) 07/15/17 07:04 RDW 12.7 % (11.5-20.0) 07/15/17 07:04 Plt Count 322 Th/cmm (150-400) 07/15/17 07:04 MPV 6.7 fl 07/15/17 07:04 Neutrophils % 80.0 % (40.0-80.0) 07/15/17 07:04 Lymphocytes % 12.0 % (20.0-50.0) L 07/15/17 07:04 Monocytes % 7.2 % (2.0-10.0) 07/15/17 07:04 Eosinophils % 0.8 % (0.0-5.0) 07/15/17 07:04 Basophils % 0.0 % (0.0-2.0) 07/15/17 07:04 ESR 22 mm/hr (0-20) H 07/15/17 07:04 PT 10.8 SECONDS (9.5-11.5) 07/15/17 07:04 INR 1.04 (0.5-1.4) 07/15/17 07:04 PTT (Actin FS) 26.6 SECONDS (26.0-38.0) 07/15/17 07:04 Sodium 135 mEq/L (136-145) L 07/15/17 07:04 Potassium 3.3 mEq/L (3.5-5.1) L 07/15/17 07:04 Chloride 99 mEq/L (98-107) 07/15/17 07:04 Carbon Dioxide 29.6 mEq/L (21.0-31.0) 07/15/17 07:04 Anion Gap 9.7 (7.0-16.0) 07/15/17 07:04 BUN 7 mg/dL (7-25) 07/15/17 07:04 Creatinine 0.5 mg/dL (0.7-1.3) L 07/15/17 07:04 Est GFR ( Amer) > 60.0 ml/min (>90) 07/15/17 07:04 Est GFR (Non-Af Amer) > 60.0 ml/min 07/15/17 07:04 BUN/Creatinine Ratio 14.0 07/15/17 07:04 Glucose 115 mg/dL (70-105) H 07/15/17 07:04 POC Glucose 109 MG/DL (70 - 105) H 07/14/17 23:17 Whole Bld Lactic Acid 0.97 mmol/L (0.60-1.99) 07/14/17 22:07 Calcium 9.3 mg/dL (8.6-10.3) 07/15/17 07:04 Total Bilirubin 0.6 mg/dL (0.3-1.0) 07/15/17 07:04 Direct Bilirubin 0.09 mg/dL (0.0-0.2) 07/14/17 22:07 AST 13 U/L (13-39) 07/15/17 07:04 ALT 20 U/L (7-52) 07/15/17 07:04 Alkaline Phosphatase 52 U/L (34-104) 07/15/17 07:04 Troponin I < 0.01 ng/mL (0.01-0.05) L 07/14/17 22:07 B-Natriuretic Peptide 10.4 pg/mL (5.0-100.0) 07/14/17 22:07 Total Protein 6.9 gm/dL (6.0-8.3) 07/15/17 07:04 Albumin 3.4 gm/dL (4.2-5.5) L 07/15/17 07:04 Globulin 3.5 gm/dL 07/15/17 07:04 Albumin/Globulin Ratio 1.0 (1.0-1.8) 07/15/17 07:04 Urine Source [place] 07/15/17 16:30 Urine Color STRAW 07/15/17 16:30 Urine Clarity HAZY (CLEAR) 07/15/17 16:30 Urine pH 7.0 (4.6 - 8.0) 07/15/17 16:30 Ur Specific [place] 1.010 (1.005-1.030) 07/15/17 16:30 Urine Protein 100 mg/dL (NEGATIVE) H 07/15/17 16:30 Urine Glucose (UA) NEGATIVE mg/dL (NEGATIVE) 07/15/17 16:30 Urine Ketones NEGATIVE mg/dL (NEGATIVE) 07/15/17 16:30 Urine Blood TRACE (NEGATIVE) 07/15/17 16:30 Urine Nitrate NEGATIVE (NEGATIVE) 07/15/17 16:30 Urine Bilirubin NEGATIVE (NEGATIVE) 07/15/17 16:30 Urine Urobilinogen 0.2 E.U./dL (0.2 - 1.0) 07/15/17 16:30 Ur Leukocyte Esterase MODERATE (NEGATIVE) H 07/15/17 16:30 Urine RBC 2-5 /hpf (0-5) H 07/15/17 16:30 Urine WBC 6-10 /hpf (0-5) 07/15/17 16:30 Ur Epithelial Cells NONE SEEN /lpf (FEW) 07/15/17 16:30 Urine Bacteria NONE SEEN /hpf (NONE SEEN) 07/15/17 16:30 Vancomycin Trough 27.2 ug/mL (10-20) H 07/17/17 08:20 - Physical Exam Vitals and I&O: Vital Signs Temp 98.1 F 07/17/17 12:01 Pulse 66 07/17/17 12:01 Resp 18 07/17/17 14:26 BP 114/64 07/17/17 12:01 Pulse Ox 98 07/17/17 12:01 Intake & Output 07/16/17 07/17/17 07/17/17 18:59 06:59 18:59 Intake Total 350 1100 50 Output Total 1100 Balance 350 0 50 Weight (lbs) 111.584 kg Intake: Intake, IV Amount 350 1100 50 D5-0.9%Ns 1,000 ml @ 75 1000 mls/hr IV .[id number] [facility] Rx #:[id number] Piperacillin Sodium/ 100 100 50 Tazobact 3.375 gm In Sodium Chloride 0.9% 50 ml @ 100 mls/hr IV Q6H [facility] Rx#:[id number] Vancomycin HCl 1.5 gm In 250 Sodium Chloride 0.9% 250 ml @ 250 mls/hr IV Q12HR [facility] Rx#:[id number] Output: Urine 1100 Other: Stool Characteristics Soft Active Medications: Current Medications Acetaminophen (Tylenol) 650 mg PO Q6H PRN PRN Reason: Mild Pain/Headache/T above 101 Stop: 09/12/17 22:10 Acetaminophen/Hydrocodone Bitart ([place] 10 Mg/325 Mg) 1 tab PO Q6H PRN PRN Reason: Moderate Pain Stop: 09/12/17 22:10 Docusate Sodium (Colace) 100 mg PO DAILY [facility] Stop: 09/13/17 08:59 Last Admin: 07/17/17 10:16 Dose: Not Given Donepezil HCl (Aricept) 10 mg PO HS [facility] Stop: 09/13/17 20:59 Last Admin: 07/16/17 22:04 Dose: 10 mg Enalapril Maleate (Vasotec) 10 mg PO DAILY [facility] Stop: 09/13/17 08:59 Last Admin: 07/17/17 10:17 Dose: Not Given Gabapentin (Neurontin) 800 mg PO TID [facility] Stop: 09/13/17 08:59 Last Admin: 07/17/17 14:10 Dose: 800 mg Piperacillin Sod/Tazobactam (Sod 3.375 gm/ Sodium Chloride) 50 mls @ 100 mls/ hr IV Q6H [facility] Stop: 09/13/17 02:59 Last Infusion: 07/17/17 13:45 Dose: Infused Vancomycin HCl 1.5 gm/ Sodium (Chloride) 250 mls @ 250 mls/hr IV Q12HR [facility] Stop: 09/14/17 08:59 Last Admin: 07/17/17 10:36 Dose: Not Given Dextrose/Sodium Chloride (D5-0.9%Ns) 1,000 mls @ 75 mls/hr IV .[id number] [facility] Stop: 09/14/17 11:59 Last Admin: 07/17/17 02:56 Dose: 75 mls/hr Levetiracetam (Keppra) 500 mg PO BID [facility] Stop: 09/13/17 08:59 Last Admin: 07/17/17 10:17 Dose: Not Given Miscellaneous (Vancomycin Iv Per Pharmacy) 1 ea MC PRN PRN PRN Reason: PROTOCOL Stop: 09/12/17 22:14 Mupirocin (Bactroban Oint) 1 appl NS BID [facility] Stop: 07/21/17 17:01 Last Admin: 07/17/17 13:05 Dose: 1 appl Ondansetron HCl (Zofran) 4 mg IVP Q6H PRN PRN Reason: Nausea / Vomiting Stop: 09/12/17 22:10 Pantoprazole Sodium (Protonix) 40 mg PO DAILY [facility] Stop: 09/13/17 08:59 Last Admin: 07/17/17 10:17 Dose: Not Given Sodium Chloride (Saline Flush) 10 ml IV QSHIFT [facility] Stop: 09/13/17 07:59 Last Admin: 07/17/17 10:12 Dose: Not Given Tamsulosin HCl (Flomax) 0.4 mg PO DAILY [facility] Stop: 09/13/17 08:59 Last Admin: 07/17/17 10:18 Dose: Not Given Tizanidine HCl (Zanaflex) 4 mg PO TID [facility] Stop: 09/13/17 08:59 Last Admin: 07/17/17 14:10 Dose: 4 mg Zolpidem Tartrate (Ambien) 10 mg PO HS PRN PRN Reason: Insomnia Stop: 09/12/17 22:10 General: no acute distress, well developed, well nourished HEENT: atraumatic, normocephalic, PERRLA, EOMI Neck: supple, no thyromegaly, no lymphadenopathy Cardiovascular: S1S2, regular Lungs: clear to auscultation bilaterally, clear to percussion Abdomen: soft, other (colostomy), no tender, no distended, no mass Extremities: no cyanosis, no clubbing, no edema Neurological: awake, alert, other (aphasic) Skin: other (right gluteal wound.) Infectious Disease Assmt/Plan - Assessment Assessment: 1. Leukocytosis. 2. Right gluteal cellulitis with decubitus ulcer, stage 3. 3. Severe dementia. 4. Obesity. 5. Hypertension. 6. Seizure disorder. - Plan Plan: Change antibiotics to rocephin for 10 days, wound care. 3 phase parrish scan.
[2017-07-17 15:29] LABS: % BASOPHILS 0.2 % (0.0-2.0); % EOSINOPHILS 0.8 % (0.0-5.0); % LYMPHOCYTES 9.8 % (20.0-50.0); % MONOCYTES 5.7 % (2.0-10.0); % NEUTROPHILS 83.5 % (40.0-80.0); EOSINOPHILE ABSOLUTE 0.1 Th/cmm (0.1-0.4); HEMATOCRIT 45.9 % (41.0-60); HEMOGLOBIN 15.1 gm/dL (12-16); LYMPHOCYTE ABSOLUTE 1.6 Th/cmm (1.5-3.0); MEAN CELL VOLUME 90.4 fl (80-99); MEAN CORPUSCULAR HEMOGLOBIN 29.7 pg (26.0-30.0); MEAN CORPUSCULAR HGB CONC 32.8 pg (28.0-36.0); MEAN PLATELET VOLUME 6.7 fl; MONOCYTE ABSOLUTE 0.9 Th/cmm (0.3-1.0); NEUTROPHILE ABSOLUTE 13.9 Th/cmm (1.8-8.0); PLATELET COUNT 280 Th/cmm (150-400); RED BLOOD COUNT 5.07 Mil/cmm (4.30-5.70); RED CELL DISTRIBUTION WIDTH 12.8 % (11.5-20.0)
[2017-07-17 16:01] LABS: WHITE BLOOD COUNT 16.5 Th/cmm (4.8-10.8)
[2017-07-17] MEDS: cefTRIAXone 2 GM in Sodium Chloride 0.9% 100 ML IV SCH (16:45)
--- NOTE | 2017-07-17 16:58 | Operative Report ---
DATE OF SURGERY: 07/17/2017 PREOPERATIVE DIAGNOSES: 1. Stage IV right hip decubitus ulcer. 2. Incontinence. 3. Obesity. 4. Psychotic disorder. 5. Bedridden status. POSTOPERATIVE DIAGNOSES: 1. Stage IV right hip decubitus ulcer. 2. Incontinence. 3. Obesity. 4. Psychotic disorder. 5. Bedridden status. OPERATION DONE: 1. Diverting colostomy with Bowens's pouch 2. Excisional debridement, right hip ulcer stage 4, size 10 cm with undermining 3. Application of wound VAC. SURGEON: Praneeth Tariq M.D. ANESTHESIA: General. ANESTHESIOLOGIST: Dr. Jacobson. ESTIMATED BLOOD LOSS: 100 mL. INDICATIONS FOR SURGERY: The patient is bedridden status and obese, has a 2-year history of nonhealing right hip decubitus ulcer. The patient is incontinent and informed consent discussed with the regarding the need to control the infection in view of his multiple comorbidities. He has agreed to the diverting colostomy and debridement and wound VAC application. DESCRIPTION OF PROCEDURE: The patient was given general anesthesia. The abdomen was prepped with ChloraPrep and draped in appropriate manner. Timeout was called to identify the correct patient. The incision was made at the midline. Bleeders were coagulated. The fascia was divided and the peritoneum entered. A retractor was applied. There was redundancy of the descending colon. Its termination into the sigmoid was identified. The descending colon was transected utilizing GI instrument. The distal portion was closed as Blayne's pouch and oversewn with running suture of 3-0 silk. The proximal portion was brought out as a colostomy in the left lower quadrant of the abdomen. A quarter size piece of skin was excised and soft tissues as well and the fascia was divided vertically. The colon was brought out through this. Under the abdominal wall the colon was sutured to the fascia utilizing running suture of 3-0 silk and also suturing the mesentery to the lateral abdominal wall to prevent internal herniation. The abdominal incision was closed with running suture of #1 PDS. Subcutaneous tissue closed with 3-0 Vicryl and the skin with subcuticular suture of 4-0 Vicryl. Sterile dressing was placed over this consisting of Dermabond, 4 x 4 and OpSite. The colostomy was matured utilizing everting suture of 4-0 Vicryl. Colostomy bag was placed. The patient was turned on the left lateral decubitus position and the ulcer was prepped with Betadine. A hemostat was used to enter the small opening which was only about 2 cm across, but this went all the way down for a distance of about 10 cm. The opening was then widened with incision and the generally granulating tissues were scraped. Bleeders were electrocoagulated. A silver sponge was then placed into this cavity and with a bridge on the right lateral aspect of the back. The patient tolerated the procedure well. JOB# [id number] KIM
--- NOTE | 2017-07-17 20:45 | Progress Notes ---
DATE: 07/17/2017 SUBJECTIVE: The patient seen and examined. The patient's at bedside. The patient is scheduled to have a debridement with a diverting colostomy. The patient is nonverbal, discussed with the patient's at bedside about the treatment plan. PHYSICAL EXAMINATION: VITAL SIGNS: Temperature 98.7, pulse 68, respiratory rate 18, blood pressure 103/56. HEENT: No facial asymmetry. NECK: Supple, no JVD. HEART: Regular. CHEST: Lung equal in expansion with no expiratory wheezing. ABDOMEN: Soft. No guarding, rigidity. Bowel sounds were no palpable mass. EXTREMITIES: No edema. AVAILABLE DIAGNOSTIC DATA: None for my review. CLINICAL IMPRESSION: 1. Infected decubitus wound. 2. Hypertension. 3. Peripheral vascular disease. 4. Degenerative joint disease. 5. Alzheimer's dementia. 6. Psychotic disorder. PLAN: 1. The patient is to proceed with the surgical intervention as planned. 2. Postop care as per the surgeon and infectious disease. Continue other medicine as prescribed. Continue to provide general nursing care. Care plan has been reviewed and discussed. JOB# [id number]
[2017-07-18 06:35] LABS: % BASOPHILS 0.2 % (0.0-2.0); % EOSINOPHILS 0.9 % (0.0-5.0); % LYMPHOCYTES 6.8 % (20.0-50.0); % MONOCYTES 7.4 % (2.0-10.0); % NEUTROPHILS 84.7 % (40.0-80.0); EOSINOPHILE ABSOLUTE 0.1 Th/cmm (0.1-0.4); HEMOGLOBIN 13.7 gm/dL (12-16); LYMPHOCYTE ABSOLUTE 1.1 Th/cmm (1.5-3.0); MEAN CELL VOLUME 90.5 fl (80-99); MEAN CORPUSCULAR HEMOGLOBIN 30.5 pg (26.0-30.0); MEAN CORPUSCULAR HGB CONC 33.7 pg (28.0-36.0); MEAN PLATELET VOLUME 6.8 fl; MONOCYTE ABSOLUTE 1.2 Th/cmm (0.3-1.0); NEUTROPHILE ABSOLUTE 13.3 Th/cmm (1.8-8.0); PLATELET COUNT 287 Th/cmm (150-400); RED BLOOD COUNT 4.48 Mil/cmm (4.30-5.70); RED CELL DISTRIBUTION WIDTH 12.8 % (11.5-20.0)
[2017-07-18 06:42] LABS: HEMATOCRIT 40.6 % (41.0-60); WHITE BLOOD COUNT 15.7 Th/cmm (4.8-10.8)
[2017-07-18 07:11] LABS: ALB/GLOB RATIO 0.9 (1.0-1.8); ALKALINE PHOSPHATASE 37 U/L (34-104); ANION GAP 9.9 (7.0-16.0); BILIRUBIN,TOTAL 0.3 mg/dL (0.3-1.0); BUN - UREA NITROGEN 12 mg/dL (7-25); CALCIUM SERUM 8.7 mg/dL (8.6-10.3); CARBON DIOXIDE 23.7 mEq/L (21.0-31.0); CHLORIDE 111 mEq/L (98-107); CREATININE - SERUM 1.3 mg/dL (0.7-1.3); GFR AFRICAN-AMERICAN > 60.0 ml/min (>90); GFR NON AFRICAN-AMERICAN > 60.0 ml/min; GLUCOSE 133 mg/dL (70-105); POTASSIUM SERUM 3.6 mEq/L (3.5-5.1); SGOT 15 U/L (13-39); SGPT/ALT 22 U/L (7-52); SODIUM SERUM 141 mEq/L (136-145); TOTAL PROTEIN,SERUM 6.3 gm/dL (6.0-8.3)
--- NOTE | 2017-07-18 09:36 | General Progress Note ---
Subjective - Review of Systems Service Date: 07/18/17 Subjective: Patient is seen and examined. Status post debridement of pressure ulcer and diverting colostomy on July 17, 2017. Postop day 1. Patient needed to be on telemetry considering patient has significant medical problem and patient looks more week than yesterday. Unable to get meaningful history from patient. Objective - Results Result Diagrams: 07/18/17 06:15 07/18/17 06:15 Recent Labs: Laboratory Last Values WBC 15.7 Th/cmm (4.8-10.8) H 07/18/17 06:15 RBC 4.48 Mil/cmm (4.30-5.70) 07/18/17 06:15 Hgb 13.7 gm/dL (12-16) 07/18/17 06:15 Hct 40.6 % (41.0-60) L D 07/18/17 06:15 MCV 90.5 fl (80-99) 07/18/17 06:15 MCH 30.5 pg (26.0-30.0) H 07/18/17 06:15 MCHC Differential 33.7 pg (28.0-36.0) 07/18/17 06:15 RDW 12.8 % (11.5-20.0) 07/18/17 06:15 Plt Count 287 Th/cmm (150-400) 07/18/17 06:15 MPV 6.8 fl 07/18/17 06:15 Neutrophils % 84.7 % (40.0-80.0) H 07/18/17 06:15 Lymphocytes % 6.8 % (20.0-50.0) L 07/18/17 06:15 Monocytes % 7.4 % (2.0-10.0) 07/18/17 06:15 Eosinophils % 0.9 % (0.0-5.0) 07/18/17 06:15 Basophils % 0.2 % (0.0-2.0) 07/18/17 06:15 ESR 22 mm/hr (0-20) H 07/15/17 07:04 PT 10.8 SECONDS (9.5-11.5) 07/15/17 07:04 INR 1.04 (0.5-1.4) 07/15/17 07:04 PTT (Actin FS) 26.6 SECONDS (26.0-38.0) 07/15/17 07:04 Sodium 141 mEq/L (136-145) 07/18/17 06:15 Potassium 3.6 mEq/L (3.5-5.1) 07/18/17 06:15 Chloride 111 mEq/L (98-107) H 07/18/17 06:15 Carbon Dioxide 23.7 mEq/L (21.0-31.0) 07/18/17 06:15 Anion Gap 9.9 (7.0-16.0) 07/18/17 06:15 BUN 12 mg/dL (7-25) 07/18/17 06:15 Creatinine 1.3 mg/dL (0.7-1.3) 07/18/17 06:15 Est GFR ( Amer) > 60.0 ml/min (>90) 07/18/17 06:15 Est GFR (Non-Af Amer) > 60.0 ml/min 07/18/17 06:15 BUN/Creatinine Ratio 9.2 07/18/17 06:15 Glucose 133 mg/dL (70-105) H 07/18/17 06:15 POC Glucose 109 MG/DL (70 - 105) H 07/14/17 23:17 Whole Bld Lactic Acid 0.97 mmol/L (0.60-1.99) 07/14/17 22:07 Calcium 8.7 mg/dL (8.6-10.3) 07/18/17 06:15 Total Bilirubin 0.3 mg/dL (0.3-1.0) 07/18/17 06:15 Direct Bilirubin 0.09 mg/dL (0.0-0.2) 07/14/17 22:07 AST 15 U/L (13-39) 07/18/17 06:15 ALT 22 U/L (7-52) 07/18/17 06:15 Alkaline Phosphatase 37 U/L (34-104) 07/18/17 06:15 Troponin I < 0.01 ng/mL (0.01-0.05) L 07/14/17 22:07 B-Natriuretic Peptide 10.4 pg/mL (5.0-100.0) 07/14/17 22:07 Total Protein 6.3 gm/dL (6.0-8.3) 07/18/17 06:15 Albumin 3.0 gm/dL (4.2-5.5) L 07/18/17 06:15 Globulin 3.3 gm/dL 07/18/17 06:15 Albumin/Globulin Ratio 0.9 (1.0-1.8) L 07/18/17 06:15 Urine Source [place] 07/15/17 16:30 Urine Color STRAW 07/15/17 16:30 Urine Clarity HAZY (CLEAR) 07/15/17 16:30 Urine pH 7.0 (4.6 - 8.0) 07/15/17 16:30 Ur Specific [place] 1.010 (1.005-1.030) 07/15/17 16:30 Urine Protein 100 mg/dL (NEGATIVE) H 07/15/17 16:30 Urine Glucose (UA) NEGATIVE mg/dL (NEGATIVE) 07/15/17 16:30 Urine Ketones NEGATIVE mg/dL (NEGATIVE) 07/15/17 16:30 Urine Blood TRACE (NEGATIVE) 07/15/17 16:30 Urine Nitrate NEGATIVE (NEGATIVE) 07/15/17 16:30 Urine Bilirubin NEGATIVE (NEGATIVE) 07/15/17 16:30 Urine Urobilinogen 0.2 E.U./dL (0.2 - 1.0) 07/15/17 16:30 Ur Leukocyte Esterase MODERATE (NEGATIVE) H 07/15/17 16:30 Urine RBC 2-5 /hpf (0-5) H 07/15/17 16:30 Urine WBC 6-10 /hpf (0-5) 07/15/17 16:30 Ur Epithelial Cells NONE SEEN /lpf (FEW) 07/15/17 16:30 Urine Bacteria NONE SEEN /hpf (NONE SEEN) 07/15/17 16:30 Vancomycin Trough 27.2 ug/mL (10-20) H 07/17/17 08:20 - Physical Exam Vitals and I&O: Vital Signs Temp 98.3 F 07/17/17 16:00 Pulse 71 07/17/17 16:00 Resp 20 07/18/17 08:00 BP 110/70 07/17/17 16:00 Pulse Ox 95 07/17/17 16:00 Intake & Output 07/17/17 07/18/17 07/18/17 18:59 06:59 18:59 Intake Total 50 250 Balance 50 250 Intake: Intake, IV Amount 50 250 Piperacillin Sodium/ 50 Tazobact 3.375 gm In Sodium Chloride 0.9% 50 ml @ 100 mls/hr IV Q6H [facility] Rx#:[id number] Vancomycin HCl 1 gm In 250 Sodium Chloride 0.9% 250 ml @ 165 mls/hr IV Q12H [facility] Rx#:[id number] Other: Stool Characteristics Soft Soft Active Medications: Current Medications Acetaminophen (Tylenol) 650 mg PO Q6H PRN PRN Reason: Mild Pain/Headache/T above 101 Stop: 09/12/17 22:10 Acetaminophen/Hydrocodone Bitart ([place] 10 Mg/325 Mg) 1 tab PO Q6H PRN PRN Reason: Moderate Pain Stop: 09/12/17 22:10 Docusate Sodium (Colace) 100 mg PO DAILY [facility] Stop: 09/13/17 08:59 Last Admin: 07/17/17 10:16 Dose: Not Given Donepezil HCl (Aricept) 10 mg PO HS [facility] Stop: 09/13/17 20:59 Last Admin: 07/17/17 21:44 Dose: 10 mg Enalapril Maleate (Vasotec) 10 mg PO DAILY [facility] Stop: 09/13/17 08:59 Last Admin: 07/17/17 10:17 Dose: Not Given Gabapentin (Neurontin) 800 mg PO TID [facility] Stop: 09/13/17 08:59 Last Admin: 07/17/17 21:45 Dose: 800 mg Dextrose/Sodium Chloride (D5-0.9%Ns) 1,000 mls @ 75 mls/hr IV .[id number] [facility] Stop: 09/14/17 11:59 Last Admin: 07/17/17 02:56 Dose: 75 mls/hr Ceftriaxone Sodium 2 gm/ (Sodium Chloride) 100 mls @ 100 mls/hr IV Q24H [facility] Stop: 09/15/17 16:29 Last Admin: 07/17/17 16:45 Dose: 100 mls/hr Vancomycin HCl 1 gm/ Sodium (Chloride) 250 mls @ 165 mls/hr IV Q12H [facility] Stop: 09/15/17 17:59 Last Admin: 07/18/17 05:20 Dose: 165 mls/hr Levetiracetam (Keppra) 500 mg PO BID [facility] Stop: 09/13/17 08:59 Last Admin: 07/17/17 16:51 Dose: 500 mg Miscellaneous (Vancomycin Iv Per Pharmacy) 1 ea [facility] PRN PRN PRN Reason: PROTOCOL Stop: 09/12/17 22:14 Mupirocin (Bactroban Oint) 1 appl NS BID [facility] Stop: 07/21/17 17:01 Last Admin: 07/17/17 16:51 Dose: 1 appl Ondansetron HCl (Zofran) 4 mg IVP Q6H PRN PRN Reason: Nausea / Vomiting Stop: 09/12/17 22:10 Pantoprazole Sodium (Protonix) 40 mg PO DAILY [facility] Stop: 09/13/17 08:59 Last Admin: 07/17/17 10:17 Dose: Not Given Sodium Chloride (Saline Flush) 10 ml IV QSHIFT [facility] Stop: 09/13/17 07:59 Last Admin: 07/17/17 10:12 Dose: Not Given Tamsulosin HCl (Flomax) 0.4 mg PO DAILY [facility] Stop: 09/13/17 08:59 Last Admin: 07/17/17 10:18 Dose: Not Given Tizanidine HCl (Zanaflex) 4 mg PO TID [facility] Stop: 09/13/17 08:59 Last Admin: 07/17/17 21:45 Dose: 4 mg Zolpidem Tartrate (Ambien) 10 mg PO HS PRN PRN Reason: Insomnia Stop: 09/12/17 22:10 General: Alert, No acute distress HEENT: Atraumatic, PERRLA, EOMI, Mucous membr. 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 No calf tenderness noted.) Neurological: Other (Unable to assess complete neurological assessment but patient has grossly intact cranial nerves and decreased part on upper and lower extremities noted.) Skin: Other (Debrided wound on his back noted. With wound VAC.) Assessment/Plan - Assessment Assessment: Status post debridement of pressure ulcer involving sacral coccyx and ischial area. Status post wound VAC. Status post diverting colostomy. Hypertension. Alzheimer's dementia. Coronary disease. Peripheral vascular disease. DJD. Obesity. - Plan Plan: Telemetry status. Wound VAC. Wound care. IV antibiotic. Colostomy care. General nursing care. Symptoms management. Medication management. Follow lab. Follow rn lactation consultant's recommendation. Await bone scan for rule out osteomyelitis. Care plan reviewed and discussed with staff. Nutritional Asmnt/Malnutr-PDOC - Dietary Evaluation Malnutrition Findings (Please click <Entered> for more info): Nutritional Asmnt/Malnutrition Start: 07/17/17 15: 22 Text: Status: Complete Freq: Document 07/17/17 15:23 HEN (Rec: 07/17/17 15:30 L[email or web address]) Nutritional Asmnt/Malnutrition Patient General Information Nutritional Screening High Risk Consult Diagnosis infected decubitus ulcer buttocks Pertinent Medical Hx/Surgical Hx HTN, DJD, obesity, UTI, PVD, bowel obstruction, psychotic disorder Subjective Information Consult received for infected decubitus ulcer. Pt is NPO today for surgery debridement and colostomy. Pt was on pureed diet, PO intake 75-100% per EMR. Current Diet Order/ Nutrition Support NPO Pertinent Medications D5-0.9% ns, colace, protonix Pertinent Labs 07/15 Na 135, K 3.3, Cr 0.5, GLucose 115 07/14 POC 109 Nutritional Hx/Data Height 1.93 m Height (Calculated Centimeters) 193.0 Current Weight (lbs) 111.584 kg Weight (Calculated Kilograms) 111.6 Weight (Calculated Grams) 274392.7 [place] Body Weight 202 Body Mass Index (BMI) 29.9 Weight Status Overweight GI Symptoms GI Symptoms None Last BM 07/17 Difficult in: None Skin Integrity/Comment: decubitus ulceration to right buttocks Current %PO Good (75-100%) Estimated Nutritional Goals BEE in Kcals: Adj wt of IBW Calories/Kcals/Kg 25-30 Kcals Calculated 7893-2040 Protein: Adj wt of IBW Protein g/k-1.2 Protein Calculated 97-116 Fluid: ml 2425-2910ml (1ml/kcal) Nutritional Problem 1. Problem Problem increased nutrition needs ( protien) Etiology increased metabolic demand for wound healing Signs/Symptoms: decubitus ulceration to right buttocks Malnutrition Alert Protein-Calorie Malnutrition N/A Is there a minimum of two criteria No selected? Query Text:Check all the applicable criteria. A minimum of two criteria are recommended for diagnosis of either severe or non-severe malnutrition. Intervention/Recommendation Comments 1. Continue with pureed diet. Recommend Arginaid 1pk daily to help wound healing 2. MD to consider vit C and zinc for wound healing. 3. Monitor PO intake, wt, labs and skin integrity 4. F/U as moderate risk in 3-5 days, 07/20-07/22 Expected Outcomes/Goals Expected Outcomes/Goals 1. PO intake to meet at least 75% of nutritional needs. 2. Wt stability, wound to heal , labs to approach WNL.
--- NOTE | 2017-07-18 10:44 | General Progress Note ---
Subjective - Review of Systems Service Date: 07/18/17 Events since last encounter: labs noted VS stable tolerating diet minimal wound vac drainage Objective - Results Result Diagrams: 07/18/17 06:15 07/18/17 06:15 Recent Labs: Laboratory Last Values WBC 15.7 Th/cmm (4.8-10.8) H 07/18/17 06:15 RBC 4.48 Mil/cmm (4.30-5.70) 07/18/17 06:15 Hgb 13.7 gm/dL (12-16) 07/18/17 06:15 Hct 40.6 % (41.0-60) L D 07/18/17 06:15 MCV 90.5 fl (80-99) 07/18/17 06:15 MCH 30.5 pg (26.0-30.0) H 07/18/17 06:15 MCHC Differential 33.7 pg (28.0-36.0) 07/18/17 06:15 RDW 12.8 % (11.5-20.0) 07/18/17 06:15 Plt Count 287 Th/cmm (150-400) 07/18/17 06:15 MPV 6.8 fl 07/18/17 06:15 Neutrophils % 84.7 % (40.0-80.0) H 07/18/17 06:15 Lymphocytes % 6.8 % (20.0-50.0) L 07/18/17 06:15 Monocytes % 7.4 % (2.0-10.0) 07/18/17 06:15 Eosinophils % 0.9 % (0.0-5.0) 07/18/17 06:15 Basophils % 0.2 % (0.0-2.0) 07/18/17 06:15 ESR 22 mm/hr (0-20) H 07/15/17 07:04 PT 10.8 SECONDS (9.5-11.5) 07/15/17 07:04 INR 1.04 (0.5-1.4) 07/15/17 07:04 PTT (Actin FS) 26.6 SECONDS (26.0-38.0) 07/15/17 07:04 Sodium 141 mEq/L (136-145) 07/18/17 06:15 Potassium 3.6 mEq/L (3.5-5.1) 07/18/17 06:15 Chloride 111 mEq/L (98-107) H 07/18/17 06:15 Carbon Dioxide 23.7 mEq/L (21.0-31.0) 07/18/17 06:15 Anion Gap 9.9 (7.0-16.0) 07/18/17 06:15 BUN 12 mg/dL (7-25) 07/18/17 06:15 Creatinine 1.3 mg/dL (0.7-1.3) 07/18/17 06:15 Est GFR ( Amer) > 60.0 ml/min (>90) 07/18/17 06:15 Est GFR (Non-Af Amer) > 60.0 ml/min 07/18/17 06:15 BUN/Creatinine Ratio 9.2 07/18/17 06:15 Glucose 133 mg/dL (70-105) H 07/18/17 06:15 POC Glucose 109 MG/DL (70 - 105) H 07/14/17 23:17 Whole Bld Lactic Acid 0.97 mmol/L (0.60-1.99) 07/14/17 22:07 Calcium 8.7 mg/dL (8.6-10.3) 07/18/17 06:15 Total Bilirubin 0.3 mg/dL (0.3-1.0) 07/18/17 06:15 Direct Bilirubin 0.09 mg/dL (0.0-0.2) 07/14/17 22:07 AST 15 U/L (13-39) 07/18/17 06:15 ALT 22 U/L (7-52) 07/18/17 06:15 Alkaline Phosphatase 37 U/L (34-104) 07/18/17 06:15 Troponin I < 0.01 ng/mL (0.01-0.05) L 07/14/17 22:07 B-Natriuretic Peptide 10.4 pg/mL (5.0-100.0) 07/14/17 22:07 Total Protein 6.3 gm/dL (6.0-8.3) 07/18/17 06:15 Albumin 3.0 gm/dL (4.2-5.5) L 07/18/17 06:15 Globulin 3.3 gm/dL 07/18/17 06:15 Albumin/Globulin Ratio 0.9 (1.0-1.8) L 07/18/17 06:15 Urine Source [place] 07/15/17 16:30 Urine Color STRAW 07/15/17 16:30 Urine Clarity HAZY (CLEAR) 07/15/17 16:30 Urine pH 7.0 (4.6 - 8.0) 07/15/17 16:30 Ur Specific [place] 1.010 (1.005-1.030) 07/15/17 16:30 Urine Protein 100 mg/dL (NEGATIVE) H 07/15/17 16:30 Urine Glucose (UA) NEGATIVE mg/dL (NEGATIVE) 07/15/17 16:30 Urine Ketones NEGATIVE mg/dL (NEGATIVE) 07/15/17 16:30 Urine Blood TRACE (NEGATIVE) 07/15/17 16:30 Urine Nitrate NEGATIVE (NEGATIVE) 07/15/17 16:30 Urine Bilirubin NEGATIVE (NEGATIVE) 07/15/17 16:30 Urine Urobilinogen 0.2 E.U./dL (0.2 - 1.0) 07/15/17 16:30 Ur Leukocyte Esterase MODERATE (NEGATIVE) H 07/15/17 16:30 Urine RBC 2-5 /hpf (0-5) H 07/15/17 16:30 Urine WBC 6-10 /hpf (0-5) 07/15/17 16:30 Ur Epithelial Cells NONE SEEN /lpf (FEW) 07/15/17 16:30 Urine Bacteria NONE SEEN /hpf (NONE SEEN) 07/15/17 16:30 Vancomycin Trough 27.2 ug/mL (10-20) H 07/17/17 08:20 - Physical Exam Vitals and I&O: Vital Signs Temp 98.3 F 07/17/17 16:00 Pulse 71 07/17/17 16:00 Resp 20 07/18/17 08:00 BP 110/70 07/17/17 16:00 Pulse Ox 95 07/17/17 16:00 Intake & Output 07/17/17 07/18/17 07/18/17 18:59 06:59 18:59 Intake Total 50 250 Balance 50 250 Intake: Intake, IV Amount 50 250 Piperacillin Sodium/ 50 Tazobact 3.375 gm In Sodium Chloride 0.9% 50 ml @ 100 mls/hr IV Q6H [facility] Rx#:[id number] Vancomycin HCl 1 gm In 250 Sodium Chloride 0.9% 250 ml @ 165 mls/hr IV Q12H [facility] Rx#:[id number] Other: Stool Characteristics Soft Soft Active Medications: Current Medications Acetaminophen (Tylenol) 650 mg PO Q6H PRN PRN Reason: Mild Pain/Headache/T above 101 Stop: 09/12/17 22:10 Acetaminophen/Hydrocodone Bitart ([place] 10 Mg/325 Mg) 1 tab PO Q6H PRN PRN Reason: Moderate Pain Stop: 09/12/17 22:10 Docusate Sodium (Colace) 100 mg PO DAILY [facility] Stop: 09/13/17 08:59 Last Admin: 07/17/17 10:16 Dose: Not Given Donepezil HCl (Aricept) 10 mg PO HS [facility] Stop: 09/13/17 20:59 Last Admin: 07/17/17 21:44 Dose: 10 mg Enalapril Maleate (Vasotec) 10 mg PO DAILY [facility] Stop: 09/13/17 08:59 Last Admin: 07/17/17 10:17 Dose: Not Given Gabapentin (Neurontin) 800 mg PO TID [facility] Stop: 09/13/17 08:59 Last Admin: 07/17/17 21:45 Dose: 800 mg Dextrose/Sodium Chloride (D5-0.9%Ns) 1,000 mls @ 75 mls/hr IV .[id number] [facility] Stop: 09/14/17 11:59 Last Admin: 07/17/17 02:56 Dose: 75 mls/hr Ceftriaxone Sodium 2 gm/ (Sodium Chloride) 100 mls @ 100 mls/hr IV Q24H [facility] Stop: 09/15/17 16:29 Last Admin: 07/17/17 16:45 Dose: 100 mls/hr Vancomycin HCl 1 gm/ Sodium (Chloride) 250 mls @ 165 mls/hr IV Q12H [facility] Stop: 09/15/17 17:59 Last Admin: 07/18/17 05:20 Dose: 165 mls/hr Levetiracetam (Keppra) 500 mg PO BID [facility] Stop: 09/13/17 08:59 Last Admin: 07/17/17 16:51 Dose: 500 mg Miscellaneous (Vancomycin Iv Per Pharmacy) 1 ea [facility] PRN PRN PRN Reason: PROTOCOL Stop: 09/12/17 22:14 Mupirocin (Bactroban Oint) 1 appl NS BID [facility] Stop: 07/21/17 17:01 Last Admin: 07/17/17 16:51 Dose: 1 appl Ondansetron HCl (Zofran) 4 mg IVP Q6H PRN PRN Reason: Nausea / Vomiting Stop: 09/12/17 22:10 Pantoprazole Sodium (Protonix) 40 mg PO DAILY [facility] Stop: 09/13/17 08:59 Last Admin: 07/17/17 10:17 Dose: Not Given Sodium Chloride (Saline Flush) 10 ml IV QSHIFT [facility] Stop: 09/13/17 07:59 Last Admin: 07/17/17 10:12 Dose: Not Given Tamsulosin HCl (Flomax) 0.4 mg PO DAILY [facility] Stop: 09/13/17 08:59 Last Admin: 07/17/17 10:18 Dose: Not Given Tizanidine HCl (Zanaflex) 4 mg PO TID [facility] Stop: 09/13/17 08:59 Last Admin: 07/17/17 21:45 Dose: 4 mg Zolpidem Tartrate (Ambien) 10 mg PO HS PRN PRN Reason: Insomnia Stop: 09/12/17 22:10 Nutritional Asmnt/Malnutr-PDOC - Dietary Evaluation Malnutrition Findings (Please click <Entered> for more info): Nutritional Asmnt/Malnutrition Start: 07/17/17 15: 22 Text: Status: Complete Freq: Document 07/17/17 15:23 SERA (Rec: 07/17/17 15:30 [email or web address] Nutritional Asmnt/Malnutrition Patient General Information Nutritional Screening High Risk Consult Diagnosis infected decubitus ulcer buttocks Pertinent Medical Hx/Surgical Hx HTN, DJD, obesity, UTI, PVD, bowel obstruction, psychotic disorder Subjective Information Consult received for infected decubitus ulcer. Pt is NPO today for surgery debridement and colostomy. Pt was on pureed diet, PO intake 75-100% per EMR. Current Diet Order/ Nutrition Support NPO Pertinent Medications D5-0.9% ns, colace, protonix Pertinent Labs 10 Na 135, K 3.3, Cr 0.5, GLucose 115 3/9 POC 109 Nutritional Hx/Data Height 1.93 m Height (Calculated Centimeters) 193.0 Current Weight (lbs) 111.584 kg Weight (Calculated Kilograms) 111.6 Weight (Calculated Grams) 271397.7 [place] Body Weight 202 Body Mass Index (BMI) 29.9 Weight Status Overweight GI Symptoms GI Symptoms None Last BM 07/17 Difficult in: None Skin Integrity/Comment: decubitus ulceration to right buttocks Current %PO Good (75-100%) Estimated Nutritional Goals BEE in Kcals: Adj wt of IBW Calories/Kcals/Kg 25-30 Kcals Calculated 0559-7220 Protein: Adj wt of IBW Protein g/k-1.2 Protein Calculated 97-116 Fluid: ml 2425-2910ml (1ml/kcal) Nutritional Problem 1. Problem Problem increased nutrition needs ( protien) Etiology increased metabolic demand for wound healing Signs/Symptoms: decubitus ulceration to right buttocks Malnutrition Alert Protein-Calorie Malnutrition N/A Is there a minimum of two criteria No selected? Query Text:Check all the applicable criteria. A minimum of two criteria are recommended for diagnosis of either severe or non-severe malnutrition. Intervention/Recommendation Comments 1. Continue with pureed diet. Recommend Arginaid 1pk daily to help wound healing 2. MD to consider vit C and zinc for wound healing. 3. Monitor PO intake, wt, labs and skin integrity 4. F/U as moderate risk in 3-5 days, 07/20-07/22 Expected Outcomes/Goals Expected Outcomes/Goals 1. PO intake to meet at least 75% of nutritional needs. 2. Wt stability, wound to heal , labs to approach WNL.
[2017-07-18] MEDS: D5-0.9%NS 1,000 ML IV SCH (11:13)
[2017-07-18] MEDS: Pantoprazole 40 mg EC Tab PO SCH (11:17)
--- NOTE | 2017-07-18 15:01 | Diagnostic Imaging Report ---
Nuclear medicine three-phase Bone Scan HISTORY: Pain in right hip osteomyelitis COMPARISON: None Technique/procedure: 22.5 millicuries of technetium 99 labeled MDP was administered intravenously angiographic, blood pool, and delayed images of the pelvis were obtained. Findings: Exam is limited due to body habitus and medical condition. Angiographic images demonstrate no focal abnormal uptake. Blood pool images demonstrate mild uptake involving the bilateral SI joints and uptake in the pelvis, likely the urinary bladder. Delayed images demonstrate uptake along the left hip joint and right iliac region. No significant uptake within the right hip joint. IMPRESSION: Limited exam due to body habitus and patient's medical condition. No significant uptake along the right hip joint. Nonspecific areas of uptake are seen along the right iliac region and left hip joint. If there is continued clinical concern for osteomyelitis, MRI in the region of concern may be obtained for further assessment.
[2017-07-18] MEDS: cefTRIAXone 2 GM in Sodium Chloride 0.9% 100 ML IV SCH (17:44)
[2017-07-18] MEDS: Hydrocodone/APAP 10 mg/325 mg Tab PO PRN (20:53)
[2017-07-19 06:58] LABS: % BASOPHILS 0.5 % (0.0-2.0); % EOSINOPHILS 0.9 % (0.0-5.0); % LYMPHOCYTES 12.2 % (20.0-50.0); % MONOCYTES 8.7 % (2.0-10.0); % NEUTROPHILS 77.7 % (40.0-80.0); BASOPHILE ABSOLUTE 0.1 Th/cumm (0-0.2); EOSINOPHILE ABSOLUTE 0.1 Th/cmm (0.1-0.4); HEMATOCRIT 36.3 % (41.0-60); HEMOGLOBIN 12.2 gm/dL (12-16); LYMPHOCYTE ABSOLUTE 1.7 Th/cmm (1.5-3.0); MEAN CELL VOLUME 90.5 fl (80-99); MEAN CORPUSCULAR HEMOGLOBIN 30.4 pg (26.0-30.0); MEAN CORPUSCULAR HGB CONC 33.6 pg (28.0-36.0); MEAN PLATELET VOLUME 6.9 fl; MONOCYTE ABSOLUTE 1.2 Th/cmm (0.3-1.0); NEUTROPHILE ABSOLUTE 10.9 Th/cmm (1.8-8.0); PLATELET COUNT 251 Th/cmm (150-400); RED BLOOD COUNT 4.01 Mil/cmm (4.30-5.70); RED CELL DISTRIBUTION WIDTH 12.5 % (11.5-20.0)
[2017-07-19 07:22] LABS: ALB/GLOB RATIO 0.9 (1.0-1.8); ALBUMIN 2.9 gm/dL (4.2-5.5); ALKALINE PHOSPHATASE 42 U/L (34-104); ANION GAP 8.3 (7.0-16.0); BILIRUBIN,TOTAL 0.2 mg/dL (0.3-1.0); BUN - UREA NITROGEN 13 mg/dL (7-25); CALCIUM SERUM 8.8 mg/dL (8.6-10.3); CARBON DIOXIDE 23.9 mEq/L (21.0-31.0); CHLORIDE 109 mEq/L (98-107); CREATININE - SERUM 1.3 mg/dL (0.7-1.3); GFR AFRICAN-AMERICAN > 60.0 ml/min (>90); GFR NON AFRICAN-AMERICAN > 60.0 ml/min; GLUCOSE 161 mg/dL (70-105); POTASSIUM SERUM 3.2 mEq/L (3.5-5.1); SGOT 19 U/L (13-39); SGPT/ALT 33 U/L (7-52); SODIUM SERUM 138 mEq/L (136-145); TOTAL PROTEIN,SERUM 6.1 gm/dL (6.0-8.3)
[2017-07-19] MEDS: Pantoprazole 40 mg EC Tab PO SCH (08:55)
--- NOTE | 2017-07-19 09:36 | General Progress Note ---
Subjective - Review of Systems Subjective: Patient is seen and examined. Status post debridement of pressure ulcer and diverting colostomy on July 17, 2017. Postop day 2. Unable to get meaningful history from patient. Objective - Results Result Diagrams: 07/19/17 06:40 07/19/17 06:40 Recent Labs: Laboratory Last Values WBC 14.0 Th/cmm (4.8-10.8) H 07/19/17 06:40 RBC 4.01 Mil/cmm (4.30-5.70) L 07/19/17 06:40 Hgb 12.2 gm/dL (12-16) 07/19/17 06:40 Hct 36.3 % (41.0-60) L 07/19/17 06:40 MCV 90.5 fl (80-99) 07/19/17 06:40 MCH 30.4 pg (26.0-30.0) H 07/19/17 06:40 MCHC Differential 33.6 pg (28.0-36.0) 07/19/17 06:40 RDW 12.5 % (11.5-20.0) 07/19/17 06:40 Plt Count 251 Th/cmm (150-400) 07/19/17 06:40 MPV 6.9 fl 07/19/17 06:40 Neutrophils % 77.7 % (40.0-80.0) 07/19/17 06:40 Lymphocytes % 12.2 % (20.0-50.0) L 07/19/17 06:40 Monocytes % 8.7 % (2.0-10.0) 07/19/17 06:40 Eosinophils % 0.9 % (0.0-5.0) 07/19/17 06:40 Basophils % 0.5 % (0.0-2.0) 07/19/17 06:40 ESR 22 mm/hr (0-20) H 07/15/17 07:04 PT 10.8 SECONDS (9.5-11.5) 07/15/17 07:04 INR 1.04 (0.5-1.4) 07/15/17 07:04 PTT (Actin FS) 26.6 SECONDS (26.0-38.0) 07/15/17 07:04 Sodium 138 mEq/L (136-145) 07/19/17 06:40 Potassium 3.2 mEq/L (3.5-5.1) L 07/19/17 06:40 Chloride 109 mEq/L (98-107) H 07/19/17 06:40 Carbon Dioxide 23.9 mEq/L (21.0-31.0) 07/19/17 06:40 Anion Gap 8.3 (7.0-16.0) 07/19/17 06:40 BUN 13 mg/dL (7-25) 07/19/17 06:40 Creatinine 1.3 mg/dL (0.7-1.3) 07/19/17 06:40 Est GFR ( Amer) > 60.0 ml/min (>90) 07/19/17 06:40 Est GFR (Non-Af Amer) > 60.0 ml/min 07/19/17 06:40 BUN/Creatinine Ratio 10.0 07/19/17 06:40 Glucose 161 mg/dL (70-105) H 07/19/17 06:40 POC Glucose 109 MG/DL (70 - 105) H 07/14/17 23:17 Whole Bld Lactic Acid 0.97 mmol/L (0.60-1.99) 07/14/17 22:07 Calcium 8.8 mg/dL (8.6-10.3) 07/19/17 06:40 Total Bilirubin 0.2 mg/dL (0.3-1.0) L 07/19/17 06:40 Direct Bilirubin 0.09 mg/dL (0.0-0.2) 07/14/17 22:07 AST 19 U/L (13-39) 07/19/17 06:40 ALT 33 U/L (7-52) 07/19/17 06:40 Alkaline Phosphatase 42 U/L (34-104) 07/19/17 06:40 Troponin I < 0.01 ng/mL (0.01-0.05) L 07/14/17 22:07 B-Natriuretic Peptide 10.4 pg/mL (5.0-100.0) 07/14/17 22:07 Total Protein 6.1 gm/dL (6.0-8.3) 07/19/17 06:40 Albumin 2.9 gm/dL (4.2-5.5) L 07/19/17 06:40 Globulin 3.2 gm/dL 07/19/17 06:40 Albumin/Globulin Ratio 0.9 (1.0-1.8) L 07/19/17 06:40 Urine Source [place] 07/15/17 16:30 Urine Color STRAW 07/15/17 16:30 Urine Clarity HAZY (CLEAR) 07/15/17 16:30 Urine pH 7.0 (4.6 - 8.0) 07/15/17 16:30 Ur Specific [place] 1.010 (1.005-1.030) 07/15/17 16:30 Urine Protein 100 mg/dL (NEGATIVE) H 07/15/17 16:30 Urine Glucose (UA) NEGATIVE mg/dL (NEGATIVE) 07/15/17 16:30 Urine Ketones NEGATIVE mg/dL (NEGATIVE) 07/15/17 16:30 Urine Blood TRACE (NEGATIVE) 07/15/17 16:30 Urine Nitrate NEGATIVE (NEGATIVE) 07/15/17 16:30 Urine Bilirubin NEGATIVE (NEGATIVE) 07/15/17 16:30 Urine Urobilinogen 0.2 E.U./dL (0.2 - 1.0) 07/15/17 16:30 Ur Leukocyte Esterase MODERATE (NEGATIVE) H 07/15/17 16:30 Urine RBC 2-5 /hpf (0-5) H 07/15/17 16:30 Urine WBC 6-10 /hpf (0-5) 07/15/17 16:30 Ur Epithelial Cells NONE SEEN /lpf (FEW) 07/15/17 16:30 Urine Bacteria NONE SEEN /hpf (NONE SEEN) 07/15/17 16:30 Vancomycin Trough 21.0 ug/mL (10-20) H 07/18/17 17:30 - Physical Exam Vitals and I&O: Vital Signs Temp 97.6 F 07/19/17 05:44 Pulse 78 07/19/17 08:52 Resp 18 07/19/17 05:44 BP 108/75 07/19/17 08:52 Pulse Ox 95 07/19/17 05:44 Intake & Output 07/18/17 07/19/17 07/19/17 18:59 06:59 18:59 Output Total 700 Balance -700 Weight (lbs) 111.584 kg 111.13 kg Output: Urine 700 Other: Stool Characteristics Soft Active Medications: Current Medications Acetaminophen (Tylenol) 650 mg PO Q6H PRN PRN Reason: Mild Pain/Headache/T above 101 Stop: 09/12/17 22:10 Acetaminophen/Hydrocodone Bitart ([place] 10 Mg/325 Mg) 1 tab PO Q6H PRN PRN Reason: Moderate Pain Stop: 09/12/17 22:10 Last Admin: 07/18/17 20:53 Dose: 1 tab Docusate Sodium (Colace) 100 mg PO DAILY JOSEFA Stop: 09/13/17 08:59 Last Admin: 07/19/17 08:52 Dose: 100 mg Donepezil HCl (Aricept) 10 mg PO HS JOSEFA Stop: 09/13/17 20:59 Last Admin: 07/18/17 20:52 Dose: 10 mg Enalapril Maleate (Vasotec) 10 mg PO DAILY JOSEFA Stop: 09/13/17 08:59 Last Admin: 07/19/17 08:52 Dose: 10 mg Gabapentin (Neurontin) 800 mg PO TID JOSEFA Stop: 09/13/17 08:59 Last Admin: 07/19/17 08:55 Dose: 800 mg Dextrose/Sodium Chloride (D5-0.9%Ns) 1,000 mls @ 75 mls/hr IV .[id number] JOSEFA Stop: 09/14/17 11:59 Last Admin: 07/18/17 11:13 Dose: 75 mls/hr Ceftriaxone Sodium 2 gm/ (Sodium Chloride) 100 mls @ 100 mls/hr IV Q24H JOSEFA Stop: 09/15/17 16:29 Last Admin: 07/18/17 17:44 Dose: 100 mls/hr Vancomycin HCl 1 gm/ Sodium (Chloride) 250 mls @ 165 mls/hr IV Q12H JOSEFA Stop: 09/15/17 17:59 Last Admin: 07/19/17 05:42 Dose: 165 mls/hr Levetiracetam (Keppra) 500 mg PO BID JOSEFA Stop: 09/13/17 08:59 Last Admin: 07/19/17 08:55 Dose: 500 mg Miscellaneous (Vancomycin Iv Per Pharmacy) 1 ea MC PRN PRN PRN Reason: PROTOCOL Stop: 09/12/17 22:14 Mupirocin (Bactroban Oint) 1 appl NS BID JOSEFA Stop: 07/21/17 17:01 Last Admin: 07/19/17 08:55 Dose: 1 appl Ondansetron HCl (Zofran) 4 mg IVP Q6H PRN PRN Reason: Nausea / Vomiting Stop: 09/12/17 22:10 Pantoprazole Sodium (Protonix) 40 mg PO DAILY [facility] Stop: 09/13/17 08:59 Last Admin: 07/19/17 08:55 Dose: 40 mg Sodium Chloride (Saline Flush) 10 ml IV QSHIFT [facility] Stop: 09/13/17 07:59 Last Admin: 07/18/17 20:51 Dose: 10 ml Tamsulosin HCl (Flomax) 0.4 mg PO DAILY [facility] Stop: 09/13/17 08:59 Last Admin: 07/19/17 08:55 Dose: 0.4 mg Tizanidine HCl (Zanaflex) 4 mg PO TID [facility] Stop: 09/13/17 08:59 Last Admin: 07/19/17 08:56 Dose: 4 mg Zolpidem Tartrate (Ambien) 10 mg PO HS PRN PRN Reason: Insomnia Stop: 09/12/17 22:10 General: Alert, No acute distress HEENT: Atraumatic, PERRLA, EOMI, Mucous membr. 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 No calf tenderness noted.) Neurological: Other (Unable to assess complete neurological assessment but patient has grossly intact cranial nerves and decreased part on upper and lower extremities noted.) Skin: Other (Debrided wound on his back noted. With wound VAC.) - Procedures Procedures: Procedures Procedure Code Date JASBIR SUBQ TISSUE 20 SQ CM/< 27685 07/14/17 EXCISION OF BACK SUBCU/FASCIA, OPEN APPROACH [id number] 07/14/17 Assessment/Plan - Assessment Assessment: Status post debridement of pressure ulcer involving sacral coccyx and ischial area. Status post wound VAC. Status post diverting colostomy. Hypertension. Alzheimer's dementia. Coronary disease. Peripheral vascular disease. DJD. Obesity. - Plan Plan: Telemetry status. Wound VAC. Wound care. IV antibiotic. Colostomy care. General nursing care. Symptoms management. Medication management. Follow lab. Follow insurance consultant's recommendation. Chronic disease management. Care plan reviewed and discussed with staff. Nutritional Asmnt/Malnutr-PDOC - Dietary Evaluation Malnutrition Findings (Please click <Entered> for more info): Nutritional Asmnt/Malnutrition Start: 07/17/17 15: 22 Text: Status: Complete Freq: Document 07/17/17 15:23 EMELIA (Rec: 07/17/17 15:30 [email or web address] Nutritional Asmnt/Malnutrition Patient General Information Nutritional Screening High Risk Consult Diagnosis infected decubitus ulcer buttocks Pertinent Medical Hx/Surgical Hx HTN, DJD, obesity, UTI, PVD, bowel obstruction, psychotic disorder Subjective Information Consult received for infected decubitus ulcer. Pt is NPO today for surgery debridement and colostomy. Pt was on pureed diet, PO intake 75-100% per EMR. Current Diet Order/ Nutrition Support NPO Pertinent Medications D5-0.9% ns, colace, protonix Pertinent Labs 07/15 Na 135, K 3.3, Cr 0.5, GLucose 115 07/14 POC 109 Nutritional Hx/Data Height 1.93 m Height (Calculated Centimeters) 193.0 Current Weight (lbs) 111.584 kg Weight (Calculated Kilograms) 111.6 Weight (Calculated Grams) 698145.7 [place] Body Weight 202 Body Mass Index (BMI) 29.9 Weight Status Overweight GI Symptoms GI Symptoms None Last BM 07/17 Difficult in: None Skin Integrity/Comment: decubitus ulceration to right buttocks Current %PO Good (75-100%) Estimated Nutritional Goals BEE in Kcals: Adj wt of IBW Calories/Kcals/Kg 25-30 Kcals Calculated 8034-7127 Protein: Adj wt of IBW Protein g/k-1.2 Protein Calculated 97-116 Fluid: ml 2425-2910ml (1ml/kcal) Nutritional Problem 1. Problem Problem increased nutrition needs ( protien) Etiology increased metabolic demand for wound healing Signs/Symptoms: decubitus ulceration to right buttocks Malnutrition Alert Protein-Calorie Malnutrition N/A Is there a minimum of two criteria No selected? Query Text:Check all the applicable criteria. A minimum of two criteria are recommended for diagnosis of either severe or non-severe malnutrition. Intervention/Recommendation Comments 1. Continue with pureed diet. Recommend Arginaid 1pk daily to help wound healing 2. MD to consider vit C and zinc for wound healing. 3. Monitor PO intake, wt, labs and skin integrity 4. F/U as moderate risk in 3-5 days, 07/20-07/22 Expected Outcomes/Goals Expected Outcomes/Goals 1. PO intake to meet at least 75% of nutritional needs. 2. Wt stability, wound to heal , labs to approach WNL.
[2017-07-19] MEDS: D5-0.9%NS 1,000 ML IV SCH (11:41)
--- NOTE | 2017-07-19 14:35 | General Progress Note ---
Subjective - Review of Systems Service Date: 07/19/17 Events since last encounter: labs noted incision is clean, ostomy output minimal awake, non verbal Objective - Results Result Diagrams: 07/19/17 06:40 07/19/17 06:40 Recent Labs: Laboratory Last Values WBC 14.0 Th/cmm (4.8-10.8) H 07/19/17 06:40 RBC 4.01 Mil/cmm (4.30-5.70) L 07/19/17 06:40 Hgb 12.2 gm/dL (12-16) 07/19/17 06:40 Hct 36.3 % (41.0-60) L 07/19/17 06:40 MCV 90.5 fl (80-99) 07/19/17 06:40 MCH 30.4 pg (26.0-30.0) H 07/19/17 06:40 MCHC Differential 33.6 pg (28.0-36.0) 07/19/17 06:40 RDW 12.5 % (11.5-20.0) 07/19/17 06:40 Plt Count 251 Th/cmm (150-400) 07/19/17 06:40 MPV 6.9 fl 07/19/17 06:40 Neutrophils % 77.7 % (40.0-80.0) 07/19/17 06:40 Lymphocytes % 12.2 % (20.0-50.0) L 07/19/17 06:40 Monocytes % 8.7 % (2.0-10.0) 07/19/17 06:40 Eosinophils % 0.9 % (0.0-5.0) 07/19/17 06:40 Basophils % 0.5 % (0.0-2.0) 07/19/17 06:40 ESR 22 mm/hr (0-20) H 07/15/17 07:04 PT 10.8 SECONDS (9.5-11.5) 07/15/17 07:04 INR 1.04 (0.5-1.4) 07/15/17 07:04 PTT (Actin FS) 26.6 SECONDS (26.0-38.0) 07/15/17 07:04 Sodium 138 mEq/L (136-145) 07/19/17 06:40 Potassium 3.2 mEq/L (3.5-5.1) L 07/19/17 06:40 Chloride 109 mEq/L (98-107) H 07/19/17 06:40 Carbon Dioxide 23.9 mEq/L (21.0-31.0) 07/19/17 06:40 Anion Gap 8.3 (7.0-16.0) 07/19/17 06:40 BUN 13 mg/dL (7-25) 07/19/17 06:40 Creatinine 1.3 mg/dL (0.7-1.3) 07/19/17 06:40 Est GFR ( Amer) > 60.0 ml/min (>90) 07/19/17 06:40 Est GFR (Non-Af Amer) > 60.0 ml/min 07/19/17 06:40 BUN/Creatinine Ratio 10.0 07/19/17 06:40 Glucose 161 mg/dL (70-105) H 07/19/17 06:40 POC Glucose 109 MG/DL (70 - 105) H 07/14/17 23:17 Whole Bld Lactic Acid 0.97 mmol/L (0.60-1.99) 07/14/17 22:07 Calcium 8.8 mg/dL (8.6-10.3) 07/19/17 06:40 Total Bilirubin 0.2 mg/dL (0.3-1.0) L 07/19/17 06:40 Direct Bilirubin 0.09 mg/dL (0.0-0.2) 07/14/17 22:07 AST 19 U/L (13-39) 07/19/17 06:40 ALT 33 U/L (7-52) 07/19/17 06:40 Alkaline Phosphatase 42 U/L (34-104) 07/19/17 06:40 Troponin I < 0.01 ng/mL (0.01-0.05) L 07/14/17 22:07 B-Natriuretic Peptide 10.4 pg/mL (5.0-100.0) 07/14/17 22:07 Total Protein 6.1 gm/dL (6.0-8.3) 07/19/17 06:40 Albumin 2.9 gm/dL (4.2-5.5) L 07/19/17 06:40 Globulin 3.2 gm/dL 07/19/17 06:40 Albumin/Globulin Ratio 0.9 (1.0-1.8) L 07/19/17 06:40 Urine Source [place] 07/15/17 16:30 Urine Color STRAW 07/15/17 16:30 Urine Clarity HAZY (CLEAR) 07/15/17 16:30 Urine pH 7.0 (4.6 - 8.0) 07/15/17 16:30 Ur Specific [place] 1.010 (1.005-1.030) 07/15/17 16:30 Urine Protein 100 mg/dL (NEGATIVE) H 07/15/17 16:30 Urine Glucose (UA) NEGATIVE mg/dL (NEGATIVE) 07/15/17 16:30 Urine Ketones NEGATIVE mg/dL (NEGATIVE) 07/15/17 16:30 Urine Blood TRACE (NEGATIVE) 07/15/17 16:30 Urine Nitrate NEGATIVE (NEGATIVE) 07/15/17 16:30 Urine Bilirubin NEGATIVE (NEGATIVE) 07/15/17 16:30 Urine Urobilinogen 0.2 E.U./dL (0.2 - 1.0) 07/15/17 16:30 Ur Leukocyte Esterase MODERATE (NEGATIVE) H 07/15/17 16:30 Urine RBC 2-5 /hpf (0-5) H 07/15/17 16:30 Urine WBC 6-10 /hpf (0-5) 07/15/17 16:30 Ur Epithelial Cells NONE SEEN /lpf (FEW) 07/15/17 16:30 Urine Bacteria NONE SEEN /hpf (NONE SEEN) 07/15/17 16:30 Vancomycin Trough 21.0 ug/mL (10-20) H 07/18/17 17:30 - Physical Exam Vitals and I&O: Vital Signs Temp 98.6 F 07/19/17 12:24 Pulse 73 07/19/17 12:24 Resp 17 07/19/17 12:24 BP 132/70 07/19/17 12:24 Pulse Ox 94 07/19/17 12:24 Intake & Output 07/18/17 07/19/17 07/19/17 18:59 06:59 18:59 Intake Total 1000 Output Total 700 Balance 300 Weight (lbs) 111.584 kg 111.13 kg Intake: Intake, IV Amount 1000 D5-0.9%Ns 1,000 ml @ 75 1000 mls/hr IV .[id number] [facility] Rx #:[id number] Output: Urine 700 Other: Stool Characteristics Soft Active Medications: Current Medications Acetaminophen (Tylenol) 650 mg PO Q6H PRN PRN Reason: Mild Pain/Headache/T above 101 Stop: 09/12/17 22:10 Acetaminophen/Hydrocodone Bitart ([place] 10 Mg/325 Mg) 1 tab PO Q6H PRN PRN Reason: Moderate Pain Stop: 09/12/17 22:10 Last Admin: 07/18/17 20:53 Dose: 1 tab Docusate Sodium (Colace) 100 mg PO DAILY JOSEFA Stop: 09/13/17 08:59 Last Admin: 07/19/17 08:52 Dose: 100 mg Donepezil HCl (Aricept) 10 mg PO HS JOSEFA Stop: 09/13/17 20:59 Last Admin: 07/18/17 20:52 Dose: 10 mg Enalapril Maleate (Vasotec) 10 mg PO DAILY JOSEFA Stop: 09/13/17 08:59 Last Admin: 07/19/17 08:52 Dose: 10 mg Gabapentin (Neurontin) 800 mg PO TID [facility] Stop: 09/13/17 08:59 Last Admin: 07/19/17 08:55 Dose: 800 mg Dextrose/Sodium Chloride (D5-0.9%Ns) 1,000 mls @ 75 mls/hr IV .[id number] [facility] Stop: 09/14/17 11:59 Last Admin: 07/19/17 11:41 Dose: 75 mls/hr Ceftriaxone Sodium 2 gm/ (Sodium Chloride) 100 mls @ 100 mls/hr IV Q24H [facility] Stop: 09/15/17 16:29 Last Admin: 07/18/17 17:44 Dose: 100 mls/hr Vancomycin HCl 1 gm/ Sodium (Chloride) 250 mls @ 165 mls/hr IV Q12H [facility] Stop: 07/19/17 20:00 Last Admin: 07/19/17 05:42 Dose: 165 mls/hr Vancomycin HCl 1.75 gm/ Sodium (Chloride) 500 mls @ 250 mls/hr IV Q24H JOSEFA Stop: 09/18/17 08:59 Levetiracetam (Keppra) 500 mg PO BID JOSEFA Stop: 09/13/17 08:59 Last Admin: 07/19/17 08:55 Dose: 500 mg Miscellaneous (Vancomycin Iv Per Pharmacy) 1 ea MC PRN PRN PRN Reason: PROTOCOL Stop: 09/12/17 22:14 Mupirocin (Bactroban Oint) 1 appl NS BID [facility] Stop: 07/21/17 17:01 Last Admin: 07/19/17 08:55 Dose: 1 appl Ondansetron HCl (Zofran) 4 mg IVP Q6H PRN PRN Reason: Nausea / Vomiting Stop: 09/12/17 22:10 Pantoprazole Sodium (Protonix) 40 mg PO DAILY JOSEFA Stop: 09/13/17 08:59 Last Admin: 07/19/17 08:55 Dose: 40 mg Sodium Chloride (Saline Flush) 10 ml IV QSHIFT [facility] Stop: 09/13/17 07:59 Last Admin: 07/18/17 20:51 Dose: 10 ml Tamsulosin HCl (Flomax) 0.4 mg PO DAILY [facility] Stop: 09/13/17 08:59 Last Admin: 07/19/17 08:55 Dose: 0.4 mg Tizanidine HCl (Zanaflex) 4 mg PO TID [facility] Stop: 09/13/17 08:59 Last Admin: 07/19/17 08:56 Dose: 4 mg Zolpidem Tartrate (Ambien) 10 mg PO HS PRN PRN Reason: Insomnia Stop: 09/12/17 22:10 General: Alert, No acute distress HEENT: Atraumatic, PERRLA, EOMI, Mucous membr. 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 No calf tenderness noted.) Neurological: Other (Unable to assess complete neurological assessment but patient has grossly intact cranial nerves and decreased part on upper and lower extremities noted.) Skin: Other (Debrided wound on his back noted. With wound VAC.) - Procedures Procedures: Procedures Procedure Code Date JASBIR SUBQ TISSUE 20 SQ CM/< 96102 07/14/17 EXCISION OF BACK SUBCU/FASCIA, OPEN APPROACH [id number] 07/14/17 Nutritional Asmnt/Malnutr-PDOC - Dietary Evaluation Malnutrition Findings (Please click <Entered> for more info): Nutritional Asmnt/Malnutrition Start: 07/17/17 15: 22 Text: Status: Complete Freq: Document 07/17/17 15:23 JAYLEEN (Rec: 07/17/17 15:30 JAYLEEN [email or web address]) Nutritional Asmnt/Malnutrition Patient General Information Nutritional Screening High Risk Consult Diagnosis infected decubitus ulcer buttocks Pertinent Medical Hx/Surgical Hx HTN, DJD, obesity, UTI, PVD, bowel obstruction, psychotic disorder Subjective Information Consult received for infected decubitus ulcer. Pt is NPO today for surgery debridement and colostomy. Pt was on pureed diet, PO intake 75-100% per EMR. Current Diet Order/ Nutrition Support NPO Pertinent Medications D5-0.9% ns, colace, protonix Pertinent Labs 07/15 Na 135, K 3.3, Cr 0.5, GLucose 115 07/14 POC 109 Nutritional Hx/Data Height 1.93 m Height (Calculated Centimeters) 193.0 Current Weight (lbs) 111.584 kg Weight (Calculated Kilograms) 111.6 Weight (Calculated Grams) 131564.7 [place] Body Weight 202 Body Mass Index (BMI) 29.9 Weight Status Overweight GI Symptoms GI Symptoms None Last BM 07/17 Difficult in: None Skin Integrity/Comment: decubitus ulceration to right buttocks Current %PO Good (75-100%) Estimated Nutritional Goals BEE in Kcals: Adj wt of IBW Calories/Kcals/Kg 25-30 Kcals Calculated 4503-4510 Protein: Adj wt of IBW Protein g/k-1.2 Protein Calculated 97-116 Fluid: ml 2425-2910ml (1ml/kcal) Nutritional Problem 1. Problem Problem increased nutrition needs ( protien) Etiology increased metabolic demand for wound healing Signs/Symptoms: decubitus ulceration to right buttocks Malnutrition Alert Protein-Calorie Malnutrition N/A Is there a minimum of two criteria No selected? Query Text:Check all the applicable criteria. A minimum of two criteria are recommended for diagnosis of either severe or non-severe malnutrition. Intervention/Recommendation Comments 1. Continue with pureed diet. Recommend Arginaid 1pk daily to help wound healing 2. MD to consider vit C and zinc for wound healing. 3. Monitor PO intake, wt, labs and skin integrity 4. F/U as moderate risk in 3-5 days, 07/20-07/22 Expected Outcomes/Goals Expected Outcomes/Goals 1. PO intake to meet at least 75% of nutritional needs. 2. Wt stability, wound to heal , labs to approach WNL.
[2017-07-19] MEDS: cefTRIAXone 2 GM in Sodium Chloride 0.9% 100 ML IV SCH (16:23)
[2017-07-20] MEDS: D5-0.9%NS 1,000 ML IV SCH ×2 (06:10→06:18)
[2017-07-20] MEDS ORDERED: Potassium Chloride 40 MEQ, Lidocaine 1% 20mL Vial 25 MG in Sodium Chloride 0.9% 250 ML IV ONE (08:29)
--- NOTE | 2017-07-20 08:45 | General Progress Note ---
Subjective - Review of Systems Service Date: 07/20/17 Events since last encounter: eating well good ostomy output incision clean Objective - Results Result Diagrams: 07/19/17 06:40 07/19/17 06:40 Recent Labs: Laboratory Last Values WBC 14.0 Th/cmm (4.8-10.8) H 07/19/17 06:40 RBC 4.01 Mil/cmm (4.30-5.70) L 07/19/17 06:40 Hgb 12.2 gm/dL (12-16) 07/19/17 06:40 Hct 36.3 % (41.0-60) L 07/19/17 06:40 MCV 90.5 fl (80-99) 07/19/17 06:40 MCH 30.4 pg (26.0-30.0) H 07/19/17 06:40 MCHC Differential 33.6 pg (28.0-36.0) 07/19/17 06:40 RDW 12.5 % (11.5-20.0) 07/19/17 06:40 Plt Count 251 Th/cmm (150-400) 07/19/17 06:40 MPV 6.9 fl 07/19/17 06:40 Neutrophils % 77.7 % (40.0-80.0) 07/19/17 06:40 Lymphocytes % 12.2 % (20.0-50.0) L 07/19/17 06:40 Monocytes % 8.7 % (2.0-10.0) 07/19/17 06:40 Eosinophils % 0.9 % (0.0-5.0) 07/19/17 06:40 Basophils % 0.5 % (0.0-2.0) 07/19/17 06:40 ESR 22 mm/hr (0-20) H 07/15/17 07:04 PT 10.8 SECONDS (9.5-11.5) 07/15/17 07:04 INR 1.04 (0.5-1.4) 07/15/17 07:04 PTT (Actin FS) 26.6 SECONDS (26.0-38.0) 07/15/17 07:04 Sodium 138 mEq/L (136-145) 07/19/17 06:40 Potassium 3.2 mEq/L (3.5-5.1) L 07/19/17 06:40 Chloride 109 mEq/L (98-107) H 07/19/17 06:40 Carbon Dioxide 23.9 mEq/L (21.0-31.0) 07/19/17 06:40 Anion Gap 8.3 (7.0-16.0) 07/19/17 06:40 BUN 13 mg/dL (7-25) 07/19/17 06:40 Creatinine 1.3 mg/dL (0.7-1.3) 07/19/17 06:40 Est GFR ( Amer) > 60.0 ml/min (>90) 07/19/17 06:40 Est GFR (Non-Af Amer) > 60.0 ml/min 07/19/17 06:40 BUN/Creatinine Ratio 10.0 07/19/17 06:40 Glucose 161 mg/dL (70-105) H 07/19/17 06:40 POC Glucose 109 MG/DL (70 - 105) H 07/14/17 23:17 Whole Bld Lactic Acid 0.97 mmol/L (0.60-1.99) 07/14/17 22:07 Calcium 8.8 mg/dL (8.6-10.3) 07/19/17 06:40 Total Bilirubin 0.2 mg/dL (0.3-1.0) L 07/19/17 06:40 Direct Bilirubin 0.09 mg/dL (0.0-0.2) 07/14/17 22:07 AST 19 U/L (13-39) 07/19/17 06:40 ALT 33 U/L (7-52) 07/19/17 06:40 Alkaline Phosphatase 42 U/L (34-104) 07/19/17 06:40 Troponin I < 0.01 ng/mL (0.01-0.05) L 07/14/17 22:07 B-Natriuretic Peptide 10.4 pg/mL (5.0-100.0) 07/14/17 22:07 Total Protein 6.1 gm/dL (6.0-8.3) 07/19/17 06:40 Albumin 2.9 gm/dL (4.2-5.5) L 07/19/17 06:40 Globulin 3.2 gm/dL 07/19/17 06:40 Albumin/Globulin Ratio 0.9 (1.0-1.8) L 07/19/17 06:40 Urine Source [place] 07/15/17 16:30 Urine Color STRAW 07/15/17 16:30 Urine Clarity HAZY (CLEAR) 07/15/17 16:30 Urine pH 7.0 (4.6 - 8.0) 07/15/17 16:30 Ur Specific [place] 1.010 (1.005-1.030) 07/15/17 16:30 Urine Protein 100 mg/dL (NEGATIVE) H 07/15/17 16:30 Urine Glucose (UA) NEGATIVE mg/dL (NEGATIVE) 07/15/17 16:30 Urine Ketones NEGATIVE mg/dL (NEGATIVE) 07/15/17 16:30 Urine Blood TRACE (NEGATIVE) 07/15/17 16:30 Urine Nitrate NEGATIVE (NEGATIVE) 07/15/17 16:30 Urine Bilirubin NEGATIVE (NEGATIVE) 07/15/17 16:30 Urine Urobilinogen 0.2 E.U./dL (0.2 - 1.0) 07/15/17 16:30 Ur Leukocyte Esterase MODERATE (NEGATIVE) H 07/15/17 16:30 Urine RBC 2-5 /hpf (0-5) H 07/15/17 16:30 Urine WBC 6-10 /hpf (0-5) 07/15/17 16:30 Ur Epithelial Cells NONE SEEN /lpf (FEW) 07/15/17 16:30 Urine Bacteria NONE SEEN /hpf (NONE SEEN) 07/15/17 16:30 Vancomycin Trough 21.0 ug/mL (10-20) H 07/18/17 17:30 - Physical Exam Vitals and I&O: Vital Signs Temp 98.2 F 07/20/17 04:00 Pulse 82 07/20/17 04:00 Resp 18 07/20/17 07:00 BP 118/66 07/20/17 04:00 Pulse Ox 98 07/20/17 04:00 Intake & Output 07/19/17 07/20/17 07/20/17 18:59 06:59 18:59 Intake Total 450 1110.00 Output Total 955 1100 Balance -505 10 Weight (lbs) 111.13 kg 111.13 kg Intake: Intake, IV Amount 350 1010.00 D5-0.9%Ns 1,000 ml @ 75 1010.00 mls/hr IV .[id number] [facility] Rx #:[id number] Vancomycin HCl 1 gm In 250 Sodium Chloride 0.9% 250 ml @ 165 mls/hr IV Q12H [facility] Rx#:[id number] cefTRIAXone 2 gm In 100 Sodium Chloride 0.9% 100 ml @ 100 mls/hr IV Q24H [facility] Rx#:[id number] Oral 100 100 Output: Urine 900 1100 Stool 5 Other 50 Other: Stool Characteristics Liquid Liquid Brown Brown Green Green Active Medications: Current Medications Acetaminophen (Tylenol) 650 mg PO Q6H PRN PRN Reason: Mild Pain/Headache/T above 101 Stop: 09/12/17 22:10 Last Admin: 07/19/17 20:22 Dose: 650 mg Acetaminophen/Hydrocodone Bitart ([place] 10 Mg/325 Mg) 1 tab PO Q6H PRN PRN Reason: Moderate Pain Stop: 09/12/17 22:10 Last Admin: 07/18/17 20:53 Dose: 1 tab Docusate Sodium (Colace) 100 mg PO DAILY JOSEFA Stop: 09/13/17 08:59 Last Admin: 07/19/17 08:52 Dose: 100 mg Donepezil HCl (Aricept) 10 mg PO HS [facility] Stop: 09/13/17 20:59 Last Admin: 07/19/17 22:57 Dose: 10 mg Enalapril Maleate (Vasotec) 10 mg PO DAILY JOSEFA Stop: 09/13/17 08:59 Last Admin: 07/19/17 08:52 Dose: 10 mg Gabapentin (Neurontin) 800 mg PO TID [facility] Stop: 09/13/17 08:59 Last Admin: 07/19/17 22:57 Dose: 800 mg Dextrose/Sodium Chloride (D5-0.9%Ns) 1,000 mls @ 75 mls/hr IV .[id number] [facility] Stop: 09/14/17 11:59 Last Admin: 07/20/17 06:18 Dose: 75 mls/hr Ceftriaxone Sodium 2 gm/ (Sodium Chloride) 100 mls @ 100 mls/hr IV Q24H JOSEFA Stop: 09/15/17 16:29 Last Infusion: 07/19/17 17:23 Dose: Infused Vancomycin HCl 1.75 gm/ Sodium (Chloride) 500 mls @ 250 mls/hr IV Q24H JOSE[facility] Stop: 09/18/17 08:59 Potassium Chloride 40 meq/Lidocaine HCl 25 mg/ Sodium Chloride 272.5 mls @ 68 mls/hr IV X1 ONE Stop: 07/20/17 12:29 Levetiracetam (Keppra) 500 mg PO BID JOSEFA Stop: 09/13/17 08:59 Last Admin: 07/19/17 16:28 Dose: 500 mg Miscellaneous (Vancomycin Iv Per Pharmacy) 1 ea MC PRN PRN PRN Reason: PROTOCOL Stop: 09/12/17 22:14 Mupirocin (Bactroban Oint) 1 appl NS BID JOSEFA Stop: 07/21/17 17:01 Last Admin: 07/19/17 16:28 Dose: 1 appl Ondansetron HCl (Zofran) 4 mg IVP Q6H PRN PRN Reason: Nausea / Vomiting Stop: 09/12/17 22:10 Pantoprazole Sodium (Protonix) 40 mg PO DAILY JOSEFA Stop: 09/13/17 08:59 Last Admin: 07/19/17 08:55 Dose: 40 mg Sodium Chloride (Saline Flush) 10 ml IV QSHIFT JOSEFA Stop: 09/13/17 07:59 Last Admin: 07/19/17 23:19 Dose: Not Given Tamsulosin HCl (Flomax) 0.4 mg PO DAILY JOSEFA Stop: 09/13/17 08:59 Last Admin: 07/19/17 08:55 Dose: 0.4 mg Tizanidine HCl (Zanaflex) 4 mg PO TID JOSEFA Stop: 09/13/17 08:59 Last Admin: 07/19/17 23:19 Dose: Not Given Zolpidem Tartrate (Ambien) 10 mg PO HS PRN PRN Reason: Insomnia Stop: 09/12/17 22:10 General: Alert, No acute distress HEENT: Atraumatic, PERRLA, EOMI, Mucous membr. 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 No calf tenderness noted.) Neurological: Other (Unable to assess complete neurological assessment but patient has grossly intact cranial nerves and decreased part on upper and lower extremities noted.) Skin: Other (Debrided wound on his back noted. With wound VAC.) - Procedures Procedures: Procedures Procedure Code Date JASBIR SUBQ TISSUE 20 SQ CM/< 79420 07/14/17 EXCISION OF BACK SUBCU/FASCIA, OPEN APPROACH [id number] 07/14/17 Nutritional Asmnt/Malnutr-PDOC - Dietary Evaluation Malnutrition Findings (Please click <Entered> for more info): Nutritional Asmnt/Malnutrition Start: 07/17/17 15: 22 Text: Status: Complete Freq: Document 07/17/17 15:23 [facility] (Rec: 07/17/17 15:30 [email or web address] Nutritional Asmnt/Malnutrition Patient General Information Nutritional Screening High Risk Consult Diagnosis infected decubitus ulcer buttocks Pertinent Medical Hx/Surgical Hx HTN, DJD, obesity, UTI, PVD, bowel obstruction, psychotic disorder Subjective Information Consult received for infected decubitus ulcer. Pt is NPO today for surgery debridement and colostomy. Pt was on pureed diet, PO intake 75-100% per EMR. Current Diet Order/ Nutrition Support NPO Pertinent Medications D5-0.9% ns, colace, protonix Pertinent Labs 07/15 Na 135, K 3.3, Cr 0.5, GLucose 115 07/14 POC 109 Nutritional Hx/Data Height 1.93 m Height (Calculated Centimeters) 193.0 Current Weight (lbs) 111.584 kg Weight (Calculated Kilograms) 111.6 Weight (Calculated Grams) 955939.7 [place] Body Weight 202 Body Mass Index (BMI) 29.9 Weight Status Overweight GI Symptoms GI Symptoms None Last BM 07/17 Difficult in: None Skin Integrity/Comment: decubitus ulceration to right buttocks Current %PO Good (75-100%) Estimated Nutritional Goals BEE in Kcals: Adj wt of IBW Calories/Kcals/Kg 25-30 Kcals Calculated 7513-7349 Protein: Adj wt of IBW Protein g/k-1.2 Protein Calculated 97-116 Fluid: ml 2425-2910ml (1ml/kcal) Nutritional Problem 1. Problem Problem increased nutrition needs ( protien) Etiology increased metabolic demand for wound healing Signs/Symptoms: decubitus ulceration to right buttocks Malnutrition Alert Protein-Calorie Malnutrition N/A Is there a minimum of two criteria No selected? Query Text:Check all the applicable criteria. A minimum of two criteria are recommended for diagnosis of either severe or non-severe malnutrition. Intervention/Recommendation Comments 1. Continue with pureed diet. Recommend Arginaid 1pk daily to help wound healing 2. MD to consider vit C and zinc for wound healing. 3. Monitor PO intake, wt, labs and skin integrity 4. F/U as moderate risk in 3-5 days, 07/20-07/22 Expected Outcomes/Goals Expected Outcomes/Goals 1. PO intake to meet at least 75% of nutritional needs. 2. Wt stability, wound to heal , labs to approach WNL.
[2017-07-20] MEDS: Pantoprazole 40 mg EC Tab PO SCH (09:45)
[2017-07-20] MEDS: Vancomycin HCl 1.75 GM in Sodium Chloride 0.9% 500 ML IV SCH (12:27)
--- NOTE | 2017-07-20 15:59 | Infectious Disease Prog Note ---
Infectious Disease Subjective - Review of Systems Service Date: 07/20/17 Subjective: There is no new change, no fever. Infectious Disease Objective - Results Result Diagrams: 07/19/17 06:40 07/19/17 06:40 Recent Labs: Laboratory Last Values WBC 14.0 Th/cmm (4.8-10.8) H 07/19/17 06:40 RBC 4.01 Mil/cmm (4.30-5.70) L 07/19/17 06:40 Hgb 12.2 gm/dL (12-16) 07/19/17 06:40 Hct 36.3 % (41.0-60) L 07/19/17 06:40 MCV 90.5 fl (80-99) 07/19/17 06:40 MCH 30.4 pg (26.0-30.0) H 07/19/17 06:40 MCHC Differential 33.6 pg (28.0-36.0) 07/19/17 06:40 RDW 12.5 % (11.5-20.0) 07/19/17 06:40 Plt Count 251 Th/cmm (150-400) 07/19/17 06:40 MPV 6.9 fl 07/19/17 06:40 Neutrophils % 77.7 % (40.0-80.0) 07/19/17 06:40 Lymphocytes % 12.2 % (20.0-50.0) L 07/19/17 06:40 Monocytes % 8.7 % (2.0-10.0) 07/19/17 06:40 Eosinophils % 0.9 % (0.0-5.0) 07/19/17 06:40 Basophils % 0.5 % (0.0-2.0) 07/19/17 06:40 ESR 22 mm/hr (0-20) H 07/15/17 07:04 PT 10.8 SECONDS (9.5-11.5) 07/15/17 07:04 INR 1.04 (0.5-1.4) 07/15/17 07:04 PTT (Actin FS) 26.6 SECONDS (26.0-38.0) 07/15/17 07:04 Sodium 138 mEq/L (136-145) 07/19/17 06:40 Potassium 3.2 mEq/L (3.5-5.1) L 07/19/17 06:40 Chloride 109 mEq/L (98-107) H 07/19/17 06:40 Carbon Dioxide 23.9 mEq/L (21.0-31.0) 07/19/17 06:40 Anion Gap 8.3 (7.0-16.0) 07/19/17 06:40 BUN 13 mg/dL (7-25) 07/19/17 06:40 Creatinine 1.3 mg/dL (0.7-1.3) 07/19/17 06:40 Est GFR ( Amer) > 60.0 ml/min (>90) 07/19/17 06:40 Est GFR (Non-Af Amer) > 60.0 ml/min 07/19/17 06:40 BUN/Creatinine Ratio 10.0 07/19/17 06:40 Glucose 161 mg/dL (70-105) H 07/19/17 06:40 POC Glucose 109 MG/DL (70 - 105) H 07/14/17 23:17 Whole Bld Lactic Acid 0.97 mmol/L (0.60-1.99) 07/14/17 22:07 Calcium 8.8 mg/dL (8.6-10.3) 07/19/17 06:40 Total Bilirubin 0.2 mg/dL (0.3-1.0) L 07/19/17 06:40 Direct Bilirubin 0.09 mg/dL (0.0-0.2) 07/14/17 22:07 AST 19 U/L (13-39) 07/19/17 06:40 ALT 33 U/L (7-52) 07/19/17 06:40 Alkaline Phosphatase 42 U/L (34-104) 07/19/17 06:40 Troponin I < 0.01 ng/mL (0.01-0.05) L 07/14/17 22:07 B-Natriuretic Peptide 10.4 pg/mL (5.0-100.0) 07/14/17 22:07 Total Protein 6.1 gm/dL (6.0-8.3) 07/19/17 06:40 Albumin 2.9 gm/dL (4.2-5.5) L 07/19/17 06:40 Globulin 3.2 gm/dL 07/19/17 06:40 Albumin/Globulin Ratio 0.9 (1.0-1.8) L 07/19/17 06:40 Urine Source [place] 07/15/17 16:30 Urine Color STRAW 07/15/17 16:30 Urine Clarity HAZY (CLEAR) 07/15/17 16:30 Urine pH 7.0 (4.6 - 8.0) 07/15/17 16:30 Ur Specific [place] 1.010 (1.005-1.030) 07/15/17 16:30 Urine Protein 100 mg/dL (NEGATIVE) H 07/15/17 16:30 Urine Glucose (UA) NEGATIVE mg/dL (NEGATIVE) 07/15/17 16:30 Urine Ketones NEGATIVE mg/dL (NEGATIVE) 07/15/17 16:30 Urine Blood TRACE (NEGATIVE) 07/15/17 16:30 Urine Nitrate NEGATIVE (NEGATIVE) 07/15/17 16:30 Urine Bilirubin NEGATIVE (NEGATIVE) 07/15/17 16:30 Urine Urobilinogen 0.2 E.U./dL (0.2 - 1.0) 07/15/17 16:30 Ur Leukocyte Esterase MODERATE (NEGATIVE) H 07/15/17 16:30 Urine RBC 2-5 /hpf (0-5) H 07/15/17 16:30 Urine WBC 6-10 /hpf (0-5) 07/15/17 16:30 Ur Epithelial Cells NONE SEEN /lpf (FEW) 07/15/17 16:30 Urine Bacteria NONE SEEN /hpf (NONE SEEN) 07/15/17 16:30 Vancomycin Trough 21.0 ug/mL (10-20) H 07/18/17 17:30 - Physical Exam Vitals and I&O: Vital Signs Temp 97.7 F 07/20/17 14:07 Pulse 85 07/20/17 14:07 Resp 17 07/20/17 15:00 BP 148/99 07/20/17 14:07 Pulse Ox 97 07/20/17 14:07 Intake & Output 07/19/17 07/20/17 07/20/17 18:59 06:59 18:59 Intake Total 450 1110.00 Output Total 955 1100 Balance -505 10 Weight (lbs) 111.13 kg 111.13 kg Intake: Intake, IV Amount 350 1010.00 D5-0.9%Ns 1,000 ml @ 75 1010.00 mls/hr IV .[id number] [facility] Rx #:[id number] Vancomycin HCl 1 gm In 250 Sodium Chloride 0.9% 250 ml @ 165 mls/hr IV Q12H [facility] Rx#:[id number] cefTRIAXone 2 gm In 100 Sodium Chloride 0.9% 100 ml @ 100 mls/hr IV Q24H [facility] Rx#:[id number] Oral 100 100 Output: Urine 900 1100 Stool 5 Other 50 Other: Stool Characteristics Liquid Liquid Brown Brown Green Green Active Medications: Current Medications Acetaminophen (Tylenol) 650 mg PO Q6H PRN PRN Reason: Mild Pain/Headache/T above 101 Stop: 09/12/17 22:10 Last Admin: 07/19/17 20:22 Dose: 650 mg Acetaminophen/Hydrocodone Bitart ([place] 10 Mg/325 Mg) 1 tab PO Q6H PRN PRN Reason: Moderate Pain Stop: 09/12/17 22:10 Last Admin: 07/18/17 20:53 Dose: 1 tab Docusate Sodium (Colace) 100 mg PO DAILY JOSEFA Stop: 09/13/17 08:59 Last Admin: 07/20/17 09:45 Dose: 100 mg Donepezil HCl (Aricept) 10 mg PO HS JOSEFA Stop: 09/13/17 20:59 Last Admin: 07/19/17 22:57 Dose: 10 mg Enalapril Maleate (Vasotec) 10 mg PO DAILY JOSEFA Stop: 09/13/17 08:59 Last Admin: 07/20/17 09:45 Dose: 10 mg Gabapentin (Neurontin) 800 mg PO TID JOSEFA Stop: 09/13/17 08:59 Last Admin: 07/20/17 14:57 Dose: 800 mg Dextrose/Sodium Chloride (D5-0.9%Ns) 1,000 mls @ 75 mls/hr IV .[id number] JOSEFA Stop: 09/14/17 11:59 Last Admin: 07/20/17 06:18 Dose: 75 mls/hr Ceftriaxone Sodium 2 gm/ (Sodium Chloride) 100 mls @ 100 mls/hr IV Q24H JOSEFA Stop: 09/15/17 16:29 Last Infusion: 07/19/17 17:23 Dose: Infused Vancomycin HCl 1.75 gm/ Sodium (Chloride) 500 mls @ 250 mls/hr IV Q24H JOSEFA Stop: 09/18/17 08:59 Last Admin: 07/20/17 12:27 Dose: 250 mls/hr Levetiracetam (Keppra) 500 mg PO BID JOSEFA Stop: 09/13/17 08:59 Last Admin: 07/20/17 09:45 Dose: 500 mg Miscellaneous (Vancomycin Iv Per Pharmacy) 1 ea MC PRN PRN PRN Reason: PROTOCOL Stop: 09/12/17 22:14 Mupirocin (Bactroban Oint) 1 appl NS BID JOSEFA Stop: 07/21/17 17:01 Last Admin: 07/20/17 09:50 Dose: 1 appl Ondansetron HCl (Zofran) 4 mg IVP Q6H PRN PRN Reason: Nausea / Vomiting Stop: 09/12/17 22:10 Pantoprazole Sodium (Protonix) 40 mg PO DAILY JOSEFA Stop: 09/13/17 08:59 Last Admin: 07/20/17 09:45 Dose: 40 mg Sodium Chloride (Saline Flush) 10 ml IV QSHIFT JOSEFA Stop: 09/13/17 07:59 Last Admin: 07/19/17 23:19 Dose: Not Given Tamsulosin HCl (Flomax) 0.4 mg PO DAILY JOSEFA Stop: 09/13/17 08:59 Last Admin: 07/20/17 09:45 Dose: 0.4 mg Tizanidine HCl (Zanaflex) 4 mg PO TID JOSEFA Stop: 09/13/17 08:59 Last Admin: 07/20/17 14:57 Dose: 4 mg Zolpidem Tartrate (Ambien) 10 mg PO HS PRN PRN Reason: Insomnia Stop: 09/12/17 22:10 General: no acute distress, well developed, well nourished HEENT: atraumatic, normocephalic, PERRLA Neck: supple, thyromegaly Cardiovascular: S1S2, regular Lungs: clear to auscultation bilaterally, clear to percussion Abdomen: soft, no tender, no distended Extremities: no cyanosis, no clubbing, no edema Neurological: awake, alert Skin: other (Left hip wound.) - Procedures Procedures: Procedures Procedure Code Date JASBIR SUBQ TISSUE 20 SQ CM/< 00735 07/14/17 EXCISION OF BACK SUBCU/FASCIA, OPEN APPROACH [id number] 07/14/17 Infectious Disease Assmt/Plan - Assessment Assessment: 1. Leukocytosis. 2. Right gluteal cellulitis with decubitus ulcer, stage 3. 3. Severe dementia. 4. Obesity. 5. Hypertension. 6. Seizure disorder. - Plan Plan: Change antibiotics to rocephin. wound care. Nutritional Asmnt/Malnutr-PDOC - Dietary Evaluation Malnutrition Findings (Please click <Entered> for more info): Nutritional Asmnt/Malnutrition Start: 07/17/17 15: 22 Text: Status: Complete Freq: Document 07/17/17 15:[address] [facility] (Rec: 07/17/17 15:[address] [email or web address]) Nutritional Asmnt/Malnutrition Patient General Information Nutritional Screening High Risk Consult Diagnosis infected decubitus ulcer buttocks Pertinent Medical Hx/Surgical Hx HTN, DJD, obesity, UTI, PVD, bowel obstruction, psychotic disorder Subjective Information Consult received for infected decubitus ulcer. Pt is NPO today for surgery debridement and colostomy. Pt was on pureed diet, PO intake 75-100% per EMR. Current Diet Order/ Nutrition Support NPO Pertinent Medications D5-0.9% ns, colace, protonix Pertinent Labs 07/15 Na 135, K 3.3, Cr 0.5, GLucose 115 07/14 POC 109 Nutritional Hx/Data Height 1.93 m Height (Calculated Centimeters) 193.0 Current Weight (lbs) 111.584 kg Weight (Calculated Kilograms) 111.6 Weight (Calculated Grams) 779933.7 [place] Body Weight 202 Body Mass Index (BMI) 29.9 Weight Status Overweight GI Symptoms GI Symptoms None Last BM 07/17 Difficult in: None Skin Integrity/Comment: decubitus ulceration to right buttocks Current %PO Good (75-100%) Estimated Nutritional Goals BEE in Kcals: Adj wt of IBW Calories/Kcals/Kg 25-30 Kcals Calculated 8009-3016 Protein: Adj wt of IBW Protein g/k-1.2 Protein Calculated 97-116 Fluid: ml 2425-2910ml (1ml/kcal) Nutritional Problem 1. Problem Problem increased nutrition needs ( protien) Etiology increased metabolic demand for wound healing Signs/Symptoms: decubitus ulceration to right buttocks Malnutrition Alert Protein-Calorie Malnutrition N/A Is there a minimum of two criteria No selected? Query Text:Check all the applicable criteria. A minimum of two criteria are recommended for diagnosis of either severe or non-severe malnutrition. Intervention/Recommendation Comments 1. Continue with pureed diet. Recommend Argina[place] 1pk daily to help wound healing 2. MD to consider vit C and zinc for wound healing. 3. Monitor PO intake, wt, labs and skin integrity 4. F/U as moderate risk in 3-5 days, 07/20-07/22 Expected Outcomes/Goals Expected Outcomes/Goals 1. PO intake to meet at least 75% of nutritional needs. 2. Wt stability, wound to heal , labs to approach WNL.
[2017-07-20] MEDS: cefTRIAXone 2 GM in Sodium Chloride 0.9% 100 ML IV SCH (17:13)
--- NOTE | 2017-07-20 21:59 | General Progress Note ---
Subjective - Review of Systems Service Date: 07/20/17 Subjective: Patient seen and examined (covering for Dr Nava) Patient doing better afebrile no new concern reported Objective - Results Result Diagrams: 07/19/17 06:40 07/19/17 06:40 Recent Labs: Laboratory Last Values WBC 14.0 Th/cmm (4.8-10.8) H 07/19/17 06:40 RBC 4.01 Mil/cmm (4.30-5.70) L 07/19/17 06:40 Hgb 12.2 gm/dL (12-16) 07/19/17 06:40 Hct 36.3 % (41.0-60) L 07/19/17 06:40 MCV 90.5 fl (80-99) 07/19/17 06:40 MCH 30.4 pg (26.0-30.0) H 07/19/17 06:40 MCHC Differential 33.6 pg (28.0-36.0) 07/19/17 06:40 RDW 12.5 % (11.5-20.0) 07/19/17 06:40 Plt Count 251 Th/cmm (150-400) 07/19/17 06:40 MPV 6.9 fl 07/19/17 06:40 Neutrophils % 77.7 % (40.0-80.0) 07/19/17 06:40 Lymphocytes % 12.2 % (20.0-50.0) L 07/19/17 06:40 Monocytes % 8.7 % (2.0-10.0) 07/19/17 06:40 Eosinophils % 0.9 % (0.0-5.0) 07/19/17 06:40 Basophils % 0.5 % (0.0-2.0) 07/19/17 06:40 ESR 22 mm/hr (0-20) H 07/15/17 07:04 PT 10.8 SECONDS (9.5-11.5) 07/15/17 07:04 INR 1.04 (0.5-1.4) 07/15/17 07:04 PTT (Actin FS) 26.6 SECONDS (26.0-38.0) 07/15/17 07:04 Sodium 138 mEq/L (136-145) 07/19/17 06:40 Potassium 3.2 mEq/L (3.5-5.1) L 07/19/17 06:40 Chloride 109 mEq/L (98-107) H 07/19/17 06:40 Carbon Dioxide 23.9 mEq/L (21.0-31.0) 07/19/17 06:40 Anion Gap 8.3 (7.0-16.0) 07/19/17 06:40 BUN 13 mg/dL (7-25) 07/19/17 06:40 Creatinine 1.3 mg/dL (0.7-1.3) 07/19/17 06:40 Est GFR ( Amer) > 60.0 ml/min (>90) 07/19/17 06:40 Est GFR (Non-Af Amer) > 60.0 ml/min 07/19/17 06:40 BUN/Creatinine Ratio 10.0 07/19/17 06:40 Glucose 161 mg/dL (70-105) H 07/19/17 06:40 POC Glucose 109 MG/DL (70 - 105) H 07/14/17 23:17 Whole Bld Lactic Acid 0.97 mmol/L (0.60-1.99) 07/14/17 22:07 Calcium 8.8 mg/dL (8.6-10.3) 07/19/17 06:40 Total Bilirubin 0.2 mg/dL (0.3-1.0) L 07/19/17 06:40 Direct Bilirubin 0.09 mg/dL (0.0-0.2) 07/14/17 22:07 AST 19 U/L (13-39) 07/19/17 06:40 ALT 33 U/L (7-52) 07/19/17 06:40 Alkaline Phosphatase 42 U/L (34-104) 07/19/17 06:40 Troponin I < 0.01 ng/mL (0.01-0.05) L 07/14/17 22:07 B-Natriuretic Peptide 10.4 pg/mL (5.0-100.0) 07/14/17 22:07 Total Protein 6.1 gm/dL (6.0-8.3) 07/19/17 06:40 Albumin 2.9 gm/dL (4.2-5.5) L 07/19/17 06:40 Globulin 3.2 gm/dL 07/19/17 06:40 Albumin/Globulin Ratio 0.9 (1.0-1.8) L 07/19/17 06:40 Urine Source [place] 07/15/17 16:30 Urine Color STRAW 07/15/17 16:30 Urine Clarity HAZY (CLEAR) 07/15/17 16:30 Urine pH 7.0 (4.6 - 8.0) 07/15/17 16:30 Ur Specific [place] 1.010 (1.005-1.030) 07/15/17 16:30 Urine Protein 100 mg/dL (NEGATIVE) H 07/15/17 16:30 Urine Glucose (UA) NEGATIVE mg/dL (NEGATIVE) 07/15/17 16:30 Urine Ketones NEGATIVE mg/dL (NEGATIVE) 07/15/17 16:30 Urine Blood TRACE (NEGATIVE) 07/15/17 16:30 Urine Nitrate NEGATIVE (NEGATIVE) 07/15/17 16:30 Urine Bilirubin NEGATIVE (NEGATIVE) 07/15/17 16:30 Urine Urobilinogen 0.2 E.U./dL (0.2 - 1.0) 07/15/17 16:30 Ur Leukocyte Esterase MODERATE (NEGATIVE) H 07/15/17 16:30 Urine RBC 2-5 /hpf (0-5) H 07/15/17 16:30 Urine WBC 6-10 /hpf (0-5) 07/15/17 16:30 Ur Epithelial Cells NONE SEEN /lpf (FEW) 07/15/17 16:30 Urine Bacteria NONE SEEN /hpf (NONE SEEN) 07/15/17 16:30 Vancomycin Trough 21.0 ug/mL (10-20) H 07/18/17 17:30 - Physical Exam Vitals and I&O: Vital Signs Temp 97.5 F 07/20/17 16:40 Pulse 84 07/20/17 16:40 Resp 17 07/20/17 19:00 BP 134/80 07/20/17 16:40 Pulse Ox 98 07/20/17 16:40 Intake & Output 07/20/17 07/20/17 07/21/17 06:59 18:59 06:59 Intake Total 1110.00 Output Total 1100 Balance 10 Weight (lbs) 111.13 kg Intake: Intake, IV Amount 1010.00 D5-0.9%Ns 1,000 ml @ 75 1010.00 mls/hr IV .[id number] [facility] Rx #:[id number] Oral 100 Output: Urine 1100 Other: Stool Characteristics Liquid Liquid Liquid Brown Brown Brown Green Green Green Active Medications: Current Medications Acetaminophen (Tylenol) 650 mg PO Q6H PRN PRN Reason: Mild Pain/Headache/T above 101 Stop: 09/12/17 22:10 Last Admin: 07/19/17 20:22 Dose: 650 mg Acetaminophen/Hydrocodone Bitart ([place] 10 Mg/325 Mg) 1 tab PO Q6H PRN PRN Reason: Moderate Pain Stop: 09/12/17 22:10 Last Admin: 07/18/17 20:53 Dose: 1 tab Docusate Sodium (Colace) 100 mg PO DAILY [facility] Stop: 09/13/17 08:59 Last Admin: 07/20/17 09:45 Dose: 100 mg Donepezil HCl (Aricept) 10 mg PO HS [facility] Stop: 09/13/17 20:59 Last Admin: 07/20/17 21:36 Dose: 10 mg Enalapril Maleate (Vasotec) 10 mg PO DAILY [facility] Stop: 09/13/17 08:59 Last Admin: 07/20/17 09:45 Dose: 10 mg Gabapentin (Neurontin) 800 mg PO TID [facility] Stop: 09/13/17 08:59 Last Admin: 07/20/17 21:36 Dose: 800 mg Dextrose/Sodium Chloride (D5-0.9%Ns) 1,000 mls @ 75 mls/hr IV .[id number] [facility] Stop: 09/14/17 11:59 Last Admin: 07/20/17 06:18 Dose: 75 mls/hr Ceftriaxone Sodium 2 gm/ (Sodium Chloride) 100 mls @ 100 mls/hr IV Q24H [facility] Stop: 09/15/17 16:29 Last Admin: 07/20/17 17:13 Dose: 100 mls/hr Vancomycin HCl 1.75 gm/ Sodium (Chloride) 500 mls @ 250 mls/hr IV Q24H [facility] Stop: 09/18/17 08:59 Last Admin: 07/20/17 12:27 Dose: 250 mls/hr Levetiracetam (Keppra) 500 mg PO BID [facility] Stop: 05/09/18 08:59 Last Admin: 07/20/17 17:12 Dose: 500 mg Miscellaneous (Vancomycin Iv Per Pharmacy) 1 ea MC PRN PRN PRN Reason: PROTOCOL Stop: 09/12/17 22:14 Mupirocin (Bactroban Oint) 1 appl NS BID [facility] Stop: 07/21/17 17:01 Last Admin: 07/20/17 17:12 Dose: 1 appl Ondansetron HCl (Zofran) 4 mg IVP Q6H PRN PRN Reason: Nausea / Vomiting Stop: 09/12/17 22:10 Pantoprazole Sodium (Protonix) 40 mg PO DAILY [facility] Stop: 09/13/17 08:59 Last Admin: 07/20/17 09:45 Dose: 40 mg Sodium Chloride (Saline Flush) 10 ml IV QSHIFT [facility] Stop: 09/13/17 07:59 Last Admin: 07/19/17 23:19 Dose: Not Given Tamsulosin HCl (Flomax) 0.4 mg PO DAILY [facility] Stop: 09/13/17 08:59 Last Admin: 07/20/17 09:45 Dose: 0.4 mg Tizanidine HCl (Zanaflex) 4 mg PO TID [facility] Stop: 09/13/17 08:59 Last Admin: 07/20/17 21:36 Dose: 4 mg Zolpidem Tartrate (Ambien) 10 mg PO HS PRN PRN Reason: Insomnia Stop: 09/12/17 22:10 General: Alert, No acute distress HEENT: PERRLA Cardiovascular: Regular rate Lungs: Clear to auscultation Abdomen: Soft, Other (Diverting colostomy on left lower quadrant noted.) Extremities: Other (Peripheral pulses are +1. No calf tenderness noted.) Neurological: Other (Unable to assess complete neurological assessment but patient has grossly intact cranial nerves and decreased part on upper and lower extremities noted.) Skin: Other (Debrided wound on his back noted. 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 CAD HTN AD - Plan Plan: Wound Vac IV antibiotics Monitor vitals Colostomy care Plan of care discussed with nursing staff Nutritional Asmnt/Malnutr-PDOC - Dietary Evaluation Malnutrition Findings (Please click <Entered> for more info): Nutritional Asmnt/Malnutrition Start: 07/17/17 15: 22 Text: Status: Complete Freq: Document 07/17/17 15:23 LCELEANORG (Rec: 07/17/17 15:30 LCELEANORG [email or web address]) Nutritional Asmnt/Malnutrition Patient General Information Nutritional Screening High Risk Consult Diagnosis infected decubitus ulcer buttocks Pertinent Medical Hx/Surgical Hx HTN, DJD, obesity, UTI, PVD, bowel obstruction, psychotic disorder Subjective Information Consult received for infected decubitus ulcer. Pt is NPO today for surgery debridement and colostomy. Pt was on pureed diet, PO intake 75-100% per EMR. Current Diet Order/ Nutrition Support NPO Pertinent Medications D5-0.9% ns, colace, protonix Pertinent Labs 07/15 Na 135, K 3.3, Cr 0.5, GLucose 115 07/14 POC 109 Nutritional Hx/Data Height 1.93 m Height (Calculated Centimeters) 193.0 Current Weight (lbs) 111.584 kg Weight (Calculated Kilograms) 111.6 Weight (Calculated Grams) 460228.7 [place] Body Weight 202 Body Mass Index (BMI) 29.9 Weight Status Overweight GI Symptoms GI Symptoms None Last BM 07/17 Difficult in: None Skin Integrity/Comment: decubitus ulceration to right buttocks Current %PO Good (75-100%) Estimated Nutritional Goals BEE in Kcals: Adj wt of IBW Calories/Kcals/Kg 25-30 Kcals Calculated 8522-1745 Protein: Adj wt of IBW Protein g/k-1.2 Protein Calculated 97-116 Fluid: ml 2425-2910ml (1ml/kcal) Nutritional Problem 1. Problem Problem increased nutrition needs ( protien) Etiology increased metabolic demand for wound healing Signs/Symptoms: decubitus ulceration to right buttocks Malnutrition Alert Protein-Calorie Malnutrition N/A Is there a minimum of two criteria No selected? Query Text:Check all the applicable criteria. A minimum of two criteria are recommended for diagnosis of either severe or non-severe malnutrition. Intervention/Recommendation Comments 1. Continue with pureed diet. Recommend Arginaid 1pk daily to help wound healing 2. MD to consider vit C and zinc for wound healing. 3. Monitor PO intake, wt, labs and skin integrity 4. F/U as moderate risk in 3-5 days, 07/20-07/22 Expected Outcomes/Goals Expected Outcomes/Goals 1. PO intake to meet at least 75% of nutritional needs. 2. Wt stability, wound to heal , labs to approach WNL.
[2017-07-21] MEDS: D5-0.9%NS 1,000 ML IV SCH (05:36)
[2017-07-21 07:08] LABS: % BASOPHILS 2.6 % (0.0-2.0); % EOSINOPHILS 1.2 % (0.0-5.0); % LYMPHOCYTES 12.9 % (20.0-50.0); % MONOCYTES 5.9 % (2.0-10.0); % NEUTROPHILS 77.4 % (40.0-80.0); BASOPHILE ABSOLUTE 0.3 Th/cumm (0-0.2); EOSINOPHILE ABSOLUTE 0.1 Th/cmm (0.1-0.4); HEMOGLOBIN 12.4 gm/dL (12-16); LYMPHOCYTE ABSOLUTE 1.5 Th/cmm (1.5-3.0); MEAN CELL VOLUME 90.1 fl (80-99); MEAN CORPUSCULAR HEMOGLOBIN 31.1 pg (26.0-30.0); MEAN CORPUSCULAR HGB CONC 34.6 pg (28.0-36.0); MEAN PLATELET VOLUME 8.1 fl; MONOCYTE ABSOLUTE 0.7 Th/cmm (0.3-1.0); NEUTROPHILE ABSOLUTE 8.9 Th/cmm (1.8-8.0); PLATELET COUNT 296 Th/cmm (150-400); RED CELL DISTRIBUTION WIDTH 12.6 % (11.5-20.0); WHITE BLOOD COUNT 11.5 Th/cmm (4.8-10.8)
[2017-07-21 07:30] LABS: ALB/GLOB RATIO 0.8 (1.0-1.8); ALBUMIN 2.9 gm/dL (4.2-5.5); ALKALINE PHOSPHATASE 45 U/L (34-104); BILIRUBIN,TOTAL 0.3 mg/dL (0.3-1.0); BUN - UREA NITROGEN 17 mg/dL (7-25); CALCIUM SERUM 8.9 mg/dL (8.6-10.3); CARBON DIOXIDE 24.6 mEq/L (21.0-31.0); CHLORIDE 114 mEq/L (98-107); CREATININE - SERUM 1.2 mg/dL (0.7-1.3); GFR AFRICAN-AMERICAN > 60.0 ml/min (>90); GFR NON AFRICAN-AMERICAN > 60.0 ml/min; GLUCOSE 119 mg/dL (70-105); POTASSIUM SERUM 3.6 mEq/L (3.5-5.1); SGOT 37 U/L (13-39); SGPT/ALT 77 U/L (7-52); SODIUM SERUM 145 mEq/L (136-145); TOTAL PROTEIN,SERUM 6.4 gm/dL (6.0-8.3)
[2017-07-21] MEDS: Vancomycin HCl 1.75 GM in Sodium Chloride 0.9% 500 ML IV SCH (09:45)
[2017-07-21] MEDS: Pantoprazole 40 mg EC Tab PO SCH (09:46)
--- NOTE | 2017-07-21 10:19 | General Progress Note ---
Subjective - Review of Systems Service Date: 07/21/17 Events since last encounter: incision redressed, clean wound clean and vac reapplied Objective - Results Result Diagrams: 07/21/17 06:00 07/21/17 06:00 Recent Labs: Laboratory Last Values WBC 11.5 Th/cmm (4.8-10.8) H 07/21/17 06:00 RBC 4.00 Mil/cmm (4.30-5.70) L 07/21/17 06:00 Hgb 12.4 gm/dL (12-16) 07/21/17 06:00 Hct 36.0 % (41.0-60) L 07/21/17 06:00 MCV 90.1 fl (80-99) 07/21/17 06:00 MCH 31.1 pg (26.0-30.0) H 07/21/17 06:00 MCHC Differential 34.6 pg (28.0-36.0) 07/21/17 06:00 RDW 12.6 % (11.5-20.0) 07/21/17 06:00 Plt Count 296 Th/cmm (150-400) 07/21/17 06:00 MPV 8.1 fl 07/21/17 06:00 Neutrophils % 77.4 % (40.0-80.0) 07/21/17 06:00 Lymphocytes % 12.9 % (20.0-50.0) L 07/21/17 06:00 Monocytes % 5.9 % (2.0-10.0) 07/21/17 06:00 Eosinophils % 1.2 % (0.0-5.0) 07/21/17 06:00 Basophils % 2.6 % (0.0-2.0) H 07/21/17 06:00 ESR 22 mm/hr (0-20) H 07/15/17 07:04 PT 10.8 SECONDS (9.5-11.5) 07/15/17 07:04 INR 1.04 (0.5-1.4) 07/15/17 07:04 PTT (Actin FS) 26.6 SECONDS (26.0-38.0) 07/15/17 07:04 Sodium 145 mEq/L (136-145) 07/21/17 06:00 Potassium 3.6 mEq/L (3.5-5.1) 07/21/17 06:00 Chloride 114 mEq/L (98-107) H 07/21/17 06:00 Carbon Dioxide 24.6 mEq/L (21.0-31.0) 07/21/17 06:00 Anion Gap 10.0 (7.0-16.0) 07/21/17 06:00 BUN 17 mg/dL (7-25) 07/21/17 06:00 Creatinine 1.2 mg/dL (0.7-1.3) 07/21/17 06:00 Est GFR ( Amer) > 60.0 ml/min (>90) 07/21/17 06:00 Est GFR (Non-Af Amer) > 60.0 ml/min 07/21/17 06:00 BUN/Creatinine Ratio 14.2 07/21/17 06:00 Glucose 119 mg/dL (70-105) H 07/21/17 06:00 POC Glucose 109 MG/DL (70 - 105) H 07/14/17 23:17 Whole Bld Lactic Acid 0.97 mmol/L (0.60-1.99) 07/14/17 22:07 Calcium 8.9 mg/dL (8.6-10.3) 07/21/17 06:00 Total Bilirubin 0.3 mg/dL (0.3-1.0) 07/21/17 06:00 Direct Bilirubin 0.09 mg/dL (0.0-0.2) 07/14/17 22:07 AST 37 U/L (13-39) 07/21/17 06:00 ALT 77 U/L (7-52) H 07/21/17 06:00 Alkaline Phosphatase 45 U/L (34-104) 07/21/17 06:00 Troponin I < 0.01 ng/mL (0.01-0.05) L 07/14/17 22:07 B-Natriuretic Peptide 10.4 pg/mL (5.0-100.0) 07/14/17 22:07 Total Protein 6.4 gm/dL (6.0-8.3) 07/21/17 06:00 Albumin 2.9 gm/dL (4.2-5.5) L 07/21/17 06:00 Globulin 3.5 gm/dL 07/21/17 06:00 Albumin/Globulin Ratio 0.8 (1.0-1.8) L 07/21/17 06:00 Urine Source [place] 07/15/17 16:30 Urine Color STRAW 07/15/17 16:30 Urine Clarity HAZY (CLEAR) 07/15/17 16:30 Urine pH 7.0 (4.6 - 8.0) 07/15/17 16:30 Ur Specific [place] 1.010 (1.005-1.030) 07/15/17 16:30 Urine Protein 100 mg/dL (NEGATIVE) H 07/15/17 16:30 Urine Glucose (UA) NEGATIVE mg/dL (NEGATIVE) 07/15/17 16:30 Urine Ketones NEGATIVE mg/dL (NEGATIVE) 07/15/17 16:30 Urine Blood TRACE (NEGATIVE) 07/15/17 16:30 Urine Nitrate NEGATIVE (NEGATIVE) 07/15/17 16:30 Urine Bilirubin NEGATIVE (NEGATIVE) 07/15/17 16:30 Urine Urobilinogen 0.2 E.U./dL (0.2 - 1.0) 07/15/17 16:30 Ur Leukocyte Esterase MODERATE (NEGATIVE) H 07/15/17 16:30 Urine RBC 2-5 /hpf (0-5) H 07/15/17 16:30 Urine WBC 6-10 /hpf (0-5) 07/15/17 16:30 Ur Epithelial Cells NONE SEEN /lpf (FEW) 07/15/17 16:30 Urine Bacteria NONE SEEN /hpf (NONE SEEN) 07/15/17 16:30 Vancomycin Trough 21.0 ug/mL (10-20) H 07/18/17 17:30 - Physical Exam Vitals and I&O: Vital Signs Temp 98.6 F 07/21/17 04:00 Pulse 83 07/21/17 09:45 Resp 18 07/21/17 04:00 BP 171/91 07/21/17 09:45 Pulse Ox 98 07/21/17 04:00 Intake & Output 07/20/17 07/21/17 07/21/17 18:59 06:59 18:59 Intake Total 500 1003.75 Output Total 2200 Balance 500 -1196.25 Weight (lbs) 111.13 kg Intake: Intake, IV Amount 500 1003.75 D5-0.9%Ns 1,000 ml @ 75 1003.75 mls/hr IV .[id number] [facility] Rx #:[id number] Vancomycin HCl 1.75 gm In 500 Sodium Chloride 0.9% 500 ml @ 250 mls/hr IV Q24H [facility] Rx#:[id number] Output: Urine 2200 Other: Stool Characteristics Liquid Liquid Soft Brown Brown Form[place] Green Green Hard Active Medications: Current Medications Acetaminophen (Tylenol) 650 mg PO Q6H PRN PRN Reason: Mild Pain/Headache/T above 101 Stop: 09/12/17 22:10 Last Admin: 07/19/17 20:22 Dose: 650 mg Acetaminophen/Hydrocodone Bitart ([place] 10 Mg/325 Mg) 1 tab PO Q6H PRN PRN Reason: Moderate Pain Stop: 09/12/17 22:10 Last Admin: 07/18/17 20:53 Dose: 1 tab Docusate Sodium (Colace) 100 mg PO DAILY [facility] Stop: 09/13/17 08:59 Last Admin: 07/21/17 09:46 Dose: 100 mg Donepezil HCl (Aricept) 10 mg PO HS [facility] Stop: 09/13/17 20:59 Last Admin: 07/20/17 21:36 Dose: 10 mg Enalapril Maleate (Vasotec) 10 mg PO DAILY [facility] Stop: 09/13/17 08:59 Last Admin: 07/21/17 09:45 Dose: 10 mg Gabapentin (Neurontin) 800 mg PO TID [facility] Stop: 09/13/17 08:59 Last Admin: 07/21/17 09:46 Dose: 800 mg Dextrose/Sodium Chloride (D5-0.9%Ns) 1,000 mls @ 75 mls/hr IV .[id number] [facility] Stop: 09/14/17 11:59 Last Infusion: 07/21/17 05:39 Dose: 75 mls/hr Ceftriaxone Sodium 2 gm/ (Sodium Chloride) 100 mls @ 100 mls/hr IV Q24H [facility] Stop: 09/15/17 16:29 Last Admin: 07/20/17 17:13 Dose: 100 mls/hr Vancomycin HCl 1.75 gm/ Sodium (Chloride) 500 mls @ 250 mls/hr IV Q24H [facility] Stop: 09/18/17 08:59 Last Admin: 03/16/18 09:45 Dose: 250 mls/hr Levetiracetam (Keppra) 500 mg PO BID [facility] Stop: 09/13/17 08:59 Last Admin: 07/21/17 09:46 Dose: 500 mg Miscellaneous (Vancomycin Iv Per Pharmacy) 1 ea MC PRN PRN PRN Reason: PROTOCOL Stop: 09/12/17 22:14 Mupirocin (Bactroban Oint) 1 appl NS BID [facility] Stop: 07/21/17 17:01 Last Admin: 07/21/17 09:44 Dose: 1 appl Ondansetron HCl (Zofran) 4 mg IVP Q6H PRN PRN Reason: Nausea / Vomiting Stop: 09/12/17 22:10 Pantoprazole Sodium (Protonix) 40 mg PO DAILY [facility] Stop: 09/13/17 08:59 Last Admin: 07/21/17 09:46 Dose: 40 mg Sodium Chloride (Saline Flush) 10 ml IV QSHIFT [facility] Stop: 09/13/17 07:59 Last Admin: 07/21/17 09:44 Dose: 10 ml Tamsulosin HCl (Flomax) 0.4 mg PO DAILY [facility] Stop: 09/13/17 08:59 Last Admin: 07/21/17 09:46 Dose: 0.4 mg Tizanidine HCl (Zanaflex) 4 mg PO TID [facility] Stop: 09/13/17 08:59 Last Admin: 07/21/17 09:44 Dose: 4 mg Zolpidem Tartrate (Ambien) 10 mg PO HS PRN PRN Reason: Insomnia Stop: 09/12/17 22:10 General: Alert, No acute distress HEENT: PERRLA Neck: Supple, +2 carotid pulse wo bruit Cardiovascular: Regular rate Lungs: Clear to auscultation Abdomen: Soft, Other (Diverting colostomy on left lower quadrant noted.) Extremities: Other (Peripheral pulses are +1. No calf tenderness noted.) Neurological: Other (Unable to assess complete neurological assessment but patient has grossly intact cranial nerves and decreased part on upper and lower extremities noted.) Skin: Other (Debrided wound on his back noted. With wound VAC.) - Procedures Procedures: Procedures Procedure Code Date JASBIR SUBQ TISSUE 20 SQ CM/< 93798 07/14/17 EXCISION OF BACK SUBCU/FASCIA, OPEN APPROACH [id number] 07/14/17 Nutritional Asmnt/Malnutr-PDOC - Dietary Evaluation Malnutrition Findings (Please click <Entered> for more info): Nutritional Asmnt/Malnutrition Start: 07/17/17 15: 22 Text: Status: Complete Freq: Document 07/17/17 15:23 LCHENG (Rec: 07/17/17 15:30 LCHENG [email or web address]) Nutritional Asmnt/Malnutrition Patient General Information Nutritional Screening High Risk Consult Diagnosis infected decubitus ulcer buttocks Pertinent Medical Hx/Surgical Hx HTN, DJD, obesity, UTI, PVD, bowel obstruction, psychotic disorder Subjective Information Consult received for infected decubitus ulcer. Pt is NPO today for surgery debridement and colostomy. Pt was on pureed diet, PO intake 75-100% per EMR. Current Diet Order/ Nutrition Support NPO Pertinent Medications D5-0.9% ns, colace, protonix Pertinent Labs 07/15 Na 135, K 3.3, Cr 0.5, GLucose 115 07/14 POC 109 Nutritional Hx/Data Height 1.93 m Height (Calculated Centimeters) 193.0 Current Weight (lbs) 111.584 kg Weight (Calculated Kilograms) 111.6 Weight (Calculated Grams) 342378.7 [place] Body Weight 202 Body Mass Index (BMI) 29.9 Weight Status Overweight GI Symptoms GI Symptoms None Last BM 07/17 Difficult in: None Skin Integrity/Comment: decubitus ulceration to right buttocks Current %PO Good (75-100%) Estimated Nutritional Goals BEE in Kcals: Adj wt of IBW Calories/Kcals/Kg 25-30 Kcals Calculated 1964-5903 Protein: Adj wt of IBW Protein g/k-1.2 Protein Calculated 97-116 Fluid: ml 2425-2910ml (1ml/kcal) Nutritional Problem 1. Problem Problem increased nutrition needs ( protien) Etiology increased metabolic demand for wound healing Signs/Symptoms: decubitus ulceration to right buttocks Malnutrition Alert Protein-Calorie Malnutrition N/A Is there a minimum of two criteria No selected? Query Text:Check all the applicable criteria. A minimum of two criteria are recommended for diagnosis of either severe or non-severe malnutrition. Intervention/Recommendation Comments 1. Continue with pureed diet. Recommend Arginaid 1pk daily to help wound healing 2. MD to consider vit C and zinc for wound healing. 3. Monitor PO intake, wt, labs and skin integrity 4. F/U as moderate risk in 3-5 days, 07/20-07/22 Expected Outcomes/Goals Expected Outcomes/Goals 1. PO intake to meet at least 75% of nutritional needs. 2. Wt stability, wound to heal , labs to approach WNL.
[2017-07-21] MEDS: cefTRIAXone 2 GM in Sodium Chloride 0.9% 100 ML IV SCH (16:10)
[2017-07-21] MEDS: Hydrocodone/APAP 10 mg/325 mg Tab PO PRN (17:55)
--- NOTE | 2017-07-21 21:47 | General Progress Note ---
Subjective - Review of Systems Service Date: 07/21/17 Subjective: Late entry: Patient seen and examined non verbal was at the bedside Objective - Results Result Diagrams: 07/21/17 06:00 07/21/17 06:00 Recent Labs: Laboratory Last Values WBC 11.5 Th/cmm (4.8-10.8) H 07/21/17 06:00 RBC 4.00 Mil/cmm (4.30-5.70) L 07/21/17 06:00 Hgb 12.4 gm/dL (12-16) 07/21/17 06:00 Hct 36.0 % (41.0-60) L 07/21/17 06:00 MCV 90.1 fl (80-99) 07/21/17 06:00 MCH 31.1 pg (26.0-30.0) H 07/21/17 06:00 MCHC Differential 34.6 pg (28.0-36.0) 07/21/17 06:00 RDW 12.6 % (11.5-20.0) 07/21/17 06:00 Plt Count 296 Th/cmm (150-400) 07/21/17 06:00 MPV 8.1 fl 07/21/17 06:00 Neutrophils % 77.4 % (40.0-80.0) 07/21/17 06:00 Lymphocytes % 12.9 % (20.0-50.0) L 07/21/17 06:00 Monocytes % 5.9 % (2.0-10.0) 07/21/17 06:00 Eosinophils % 1.2 % (0.0-5.0) 07/21/17 06:00 Basophils % 2.6 % (0.0-2.0) H 07/21/17 06:00 ESR 22 mm/hr (0-20) H 07/15/17 07:04 PT 10.8 SECONDS (9.5-11.5) 07/15/17 07:04 INR 1.04 (0.5-1.4) 07/15/17 07:04 PTT (Actin FS) 26.6 SECONDS (26.0-38.0) 07/15/17 07:04 Sodium 145 mEq/L (136-145) 07/21/17 06:00 Potassium 3.6 mEq/L (3.5-5.1) 07/21/17 06:00 Chloride 114 mEq/L (98-107) H 07/21/17 06:00 Carbon Dioxide 24.6 mEq/L (21.0-31.0) 07/21/17 06:00 Anion Gap 10.0 (7.0-16.0) 07/21/17 06:00 BUN 17 mg/dL (7-25) 07/21/17 06:00 Creatinine 1.2 mg/dL (0.7-1.3) 07/21/17 06:00 Est GFR ( Amer) > 60.0 ml/min (>90) 07/21/17 06:00 Est GFR (Non-Af Amer) > 60.0 ml/min 07/21/17 06:00 BUN/Creatinine Ratio 14.2 07/21/17 06:00 Glucose 119 mg/dL (70-105) H 07/21/17 06:00 POC Glucose 109 MG/DL (70 - 105) H 07/14/17 23:17 Whole Bld Lactic Acid 0.97 mmol/L (0.60-1.99) 07/14/17 22:07 Calcium 8.9 mg/dL (8.6-10.3) 07/21/17 06:00 Total Bilirubin 0.3 mg/dL (0.3-1.0) 07/21/17 06:00 Direct Bilirubin 0.09 mg/dL (0.0-0.2) 07/14/17 22:07 AST 37 U/L (13-39) 07/21/17 06:00 ALT 77 U/L (7-52) H 07/21/17 06:00 Alkaline Phosphatase 45 U/L (34-104) 07/21/17 06:00 Troponin I < 0.01 ng/mL (0.01-0.05) L 07/14/17 22:07 B-Natriuretic Peptide 10.4 pg/mL (5.0-100.0) 07/14/17 22:07 Total Protein 6.4 gm/dL (6.0-8.3) 07/21/17 06:00 Albumin 2.9 gm/dL (4.2-5.5) L 07/21/17 06:00 Globulin 3.5 gm/dL 07/21/17 06:00 Albumin/Globulin Ratio 0.8 (1.0-1.8) L 07/21/17 06:00 Urine Source [place] 07/15/17 16:30 Urine Color STRAW 07/15/17 16:30 Urine Clarity HAZY (CLEAR) 07/15/17 16:30 Urine pH 7.0 (4.6 - 8.0) 07/15/17 16:30 Ur Specific [place] 1.010 (1.005-1.030) 07/15/17 16:30 Urine Protein 100 mg/dL (NEGATIVE) H 07/15/17 16:30 Urine Glucose (UA) NEGATIVE mg/dL (NEGATIVE) 07/15/17 16:30 Urine Ketones NEGATIVE mg/dL (NEGATIVE) 07/15/17 16:30 Urine Blood TRACE (NEGATIVE) 07/15/17 16:30 Urine Nitrate NEGATIVE (NEGATIVE) 07/15/17 16:30 Urine Bilirubin NEGATIVE (NEGATIVE) 07/15/17 16:30 Urine Urobilinogen 0.2 E.U./dL (0.2 - 1.0) 07/15/17 16:30 Ur Leukocyte Esterase MODERATE (NEGATIVE) H 07/15/17 16:30 Urine RBC 2-5 /hpf (0-5) H 07/15/17 16:30 Urine WBC 6-10 /hpf (0-5) 07/15/17 16:30 Ur Epithelial Cells NONE SEEN /lpf (FEW) 07/15/17 16:30 Urine Bacteria NONE SEEN /hpf (NONE SEEN) 07/15/17 16:30 Vancomycin Trough 21.0 ug/mL (10-20) H 07/18/17 17:30 - Physical Exam Vitals and I&O: Vital Signs Temp 98.2 F 07/21/17 17:27 Pulse 74 07/21/17 17:27 Resp 17 07/21/17 17:27 BP 119/70 07/21/17 17:27 Pulse Ox 94 07/21/17 17:27 Intake & Output 07/21/17 07/21/17 07/22/17 06:59 18:59 06:59 Intake Total 1003.75 400 Output Total 2200 1500 Balance -1196.25 -1100 Weight (lbs) 111.13 kg 65.771 kg Intake: Intake, IV Amount 1003.75 D5-0.9%Ns 1,000 ml @ 75 1003.75 mls/hr IV .[id number] [facility] Rx #:[id number] Oral 400 Output: Urine 2200 1350 Other 150 Other: Stool Characteristics Liquid Soft Brown Brown Green General: No acute distress Cardiovascular: Regular rate Lungs: Clear to auscultation Abdomen: Soft, Other (Diverting colostomy on left lower quadrant noted.) Extremities: Other (Peripheral pulses are +1. No calf tenderness noted.) Neurological: Other (Unable to assess complete neurological assessment but patient has grossly intact cranial nerves and decreased part on upper and lower extremities noted.) Skin: Other (Debrided wound on his back noted. With wound VAC.) - Procedures Procedures: Procedures Procedure Code Date JASBIR SUBQ TISSUE 20 SQ CM/< 45242 07/14/17 EXCISION OF BACK SUBCU/FASCIA, OPEN APPROACH [id number] 07/14/17 Assessment/Plan - Assessment Assessment: Sacrococcygeal pressure ulcer diverting colostomy in place CAD HTN AD - Plan Plan: LTAC DC plan Wound Vac IV antibiotics Monitor vitals Colostomy care Plan of care discussed with nursing staff Nutritional Asmnt/Malnutr-PDOC - Dietary Evaluation Malnutrition Findings (Please click <Entered> for more info): Nutritional Asmnt/Malnutrition Start: 07/17/17 15: 22 Text: Status: Complete Freq: Document 07/17/17 15:23 LCELEANORG (Rec: 07/17/17 15:30 LCHENG [email or web address]) Nutritional Asmnt/Malnutrition Patient General Information Nutritional Screening High Risk Consult Diagnosis infected decubitus ulcer buttocks Pertinent Medical Hx/Surgical Hx HTN, DJD, obesity, UTI, PVD, bowel obstruction, psychotic disorder Subjective Information Consult received for infected decubitus ulcer. Pt is NPO today for surgery debridement and colostomy. Pt was on pureed diet, PO intake 75-100% per EMR. Current Diet Order/ Nutrition Support NPO Pertinent Medications D5-0.9% ns, colace, protonix Pertinent Labs 07/15 Na 135, K 3.3, Cr 0.5, GLucose 115 07/14 POC 109 Nutritional Hx/Data Height 1.93 m Height (Calculated Centimeters) 193.0 Current Weight (lbs) 111.584 kg Weight (Calculated Kilograms) 111.6 Weight (Calculated Grams) 138688.7 [place] Body Weight 202 Body Mass Index (BMI) 29.9 Weight Status Overweight GI Symptoms GI Symptoms None Last BM 07/17 Difficult in: None Skin Integrity/Comment: decubitus ulceration to right buttocks Current %PO Good (75-100%) Estimated Nutritional Goals BEE in Kcals: Adj wt of IBW Calories/Kcals/Kg 25-30 Kcals Calculated 5792-2081 Protein: Adj wt of IBW Protein g/k-1.2 Protein Calculated 97-116 Fluid: ml 2425-2910ml (1ml/kcal) Nutritional Problem 1. Problem Problem increased nutrition needs ( protien) Etiology increased metabolic demand for wound healing Signs/Symptoms: decubitus ulceration to right buttocks Malnutrition Alert Protein-Calorie Malnutrition N/A Is there a minimum of two criteria No selected? Query Text:Check all the applicable criteria. A minimum of two criteria are recommended for diagnosis of either severe or non-severe malnutrition. Intervention/Recommendation Comments 1. Continue with pureed diet. Recommend Arginaid 1pk daily to help wound healing 2. MD to consider vit C and zinc for wound healing. 3. Monitor PO intake, wt, labs and skin integrity 4. F/U as moderate risk in 3-5 days, 07/20-07/22 Expected Outcomes/Goals Expected Outcomes/Goals 1. PO intake to meet at least 75% of nutritional needs. 2. Wt stability, wound to heal , labs to approach WNL.
--- NOTE | 2017-08-21 11:46 | Discharge Summary ---
DATE OF DISCHARGE: 07/21/2017 DISPOSITION: Transferred to [facility] 07/21/2017. PRINCIPAL DIAGNOSES: 1. Stage IV right hip decubitus ulcer, status post excisional debridement of the right hip ulcer. 2. Diverting colostomy with Blayne's pouch. 3. Alzheimer dementia. 4. Hypertension. 5. Peripheral vascular disease. 6. Obesity. 7. Degenerative joint disease. 8. Bedridden state. 9. Benign prostatic hypertrophy. BRIEF STATEMENT FOR THE REASON FOR ADMISSION: A 57-year-old resident of assisted, brought in to the Emergency Room for evaluation and management of nonhealing stage IV right hip decubitus wound. The patient was evaluated and subsequently admitted to the hospital for further treatment. Please refer to my H and P for further information. HOSPITAL COURSE: The patient was admitted to Med/Surg floor. The patient was given IV antibiotic and Infectious Disease and surgical consultation requested as well. The patient was seen by Infectious Disease. Appropriate antibiotic was ordered. The patient did undergo bone scan. The study was limited, but there was no significant uptake along the right hip joint was noted. The patient did not have MRI of the hip, but based on the evaluation and surgical finding, it was treated as osteomyelitis. The patient did require PICC line insertion for long-term IV antibiotic. The patient needed to have wound care along with long-term antibiotic. It was decided that patient should be transferred to a long-term acute care facility. The patient was accepted and the patient was transferred to a long-term acute care facility is 07/21/2017. At the time of discharge, all of his meds were reconciled. The patient will be followed by myself at [facility]. JOB# [id number]
== END 2017-07-21 18:25 | DRG 853 ==
LOC: ER 18:17 → MSI 21:45 → TELE 07-18 09:36 → MSI 07-21 16:27
PROVIDERS: ADMIT Internal Medicine; ATTEND Internal Medicine
PROC: 0D1N0Z4 Bypass Sigmoid Colon to Cutaneous, Open Approach (ICD-10-PCS; principal; 2017-07-17)
PROC: 0JBL0ZZ Excision of Right Upper Leg Subcutaneous Tissue and Fascia, Open Approach (ICD-10-PCS; 2017-07-17)
DX: A41.9 Sepsis, unspecified organism (principal); G82.50 Quadriplegia, unspecified; L89.153 Pressure ulcer of sacral region, stage 3; L89.214 Pressure ulcer of right hip, stage 4; G30.9 Alzheimer's disease, unspecified; L89.313 Pressure ulcer of right buttock, stage 3; F02.80 Dementia in other diseases classified elsewhere, unspecified severity, without behavioral disturbance, psychotic disturbance, mood disturbance, and anxiety; N39.0 Urinary tract infection, site not specified; L03.317 Cellulitis of buttock; Z68.1 Body mass index [BMI] 19.9 or less, adult; I10 Essential (primary) hypertension; G40.909 Epilepsy, unspecified, not intractable, without status epilepticus; M19.90 Unspecified osteoarthritis, unspecified site; N40.0 Benign prostatic hyperplasia without lower urinary tract symptoms; G62.9 Polyneuropathy, unspecified; E66.01 Morbid (severe) obesity due to excess calories; I25.10 Atherosclerotic heart disease of native coronary artery without angina pectoris; R32 Unspecified urinary incontinence; I73.9 Peripheral vascular disease, unspecified; Z66 Do not resuscitate; K21.9 Gastro-esophageal reflux disease without esophagitis; Z74.01 Bed confinement status
CPT/HCPCS: 36415-UA; 71045-TC; 76770-TC; 78315-TC; 80053-TC; 80076-TC; 80202-TC; 81001-TC; 82248-TC; 82948-90; 83605; 83880-TC; 84484-TC; 85007-TC; 85025-TC; 85027-TC; 85610-TC; 85652-TC; 87070-90; 87075-90; 87086-90; 87205-90; 93005; 96372; A9503; J0692; J0696; J1953; J2001; J2405; J2543; J2704; J2710; J3010; J3370; J3480; J7030; J7040; J7042; X6258; X7704; Z7610

== ENCOUNTER 2018-09-17 11:04 | Inpatient (IN) | payer MEDICARE, MEDICAID ==
[2018-09-17] MEDS ORDERED: Sodium Chloride 0.9% 1,000 ML IV ONE (11:24)
--- NOTE | 2018-09-17 11:26 | ED Physician Chart ---
ED Chief Complaint/HPI - Patient Information Date Seen:: 09/17/18 Time Seen:: 11:30 Chief Complaint:: Fever History of Present Illness:: onset x 2 days of fever, cough, congestion, and AMS; no report of trauma, H/As, neck pain, C/P, SOB, Abd. Pain, A/N/V/D/C, chills, or urinary s/s Allergies:: Allergies Allergy/AdvReac Type Severity Reaction Status Date / Time pneumococcal vaccine Allergy Severe Verified 07/18/17 15:51 Historian:: Patient, EMS Review:: Nurse's Note Reviewed, Old Chart Reviewed, EMS run form Reviewed ED Review of Systems - Review of Systems General/Constitutional: Fever, No chills, No weight loss, Weakness, No diaphoresis, No edema, No loss of appetite Skin: No skin lesions, No rash, No bruising Head: No headache, No light-headedness Eyes: No loss of vision, No pain, No diplopia ENT: No earache, Nasal drainage, No sore throat, No tinnitus Neck: No neck pain, No swelling, No thyromegaly, No stiffness, No mass noted Cardio Vascular: No chest pain, No palpitations, No PND, No orthopnea, No edema Pulmonary: No SOB, Cough, No sputum, No wheezing GI: No nausea, No vomiting, No diarrhea, No pain, No melena, No hematochezia, No constipation, No hematemesis G/U: No dysuria, No frequency, No hematuria, No nacturia Musculoskeletal: No bone or joint pain, No back pain, No muscle pain Endocrine: No polyuria, No polydipsia Psychiatric: No prior psych history, No depression, No anxiety, No suicidal ideation, No homicidal ideation, No auditory hallucination, No visual hallucination Hematopoietic: No bruising, No lymphadenopathy Allergic/Immuno: No urticaria, No angioedema Neurological: No syncope, No focal symptoms, No weakness, No paresthesia, No headache, No seizure, No dizziness, Confusion, No vertigo ED Past Medical History - Past Medical History Obtainable: Yes Past Medical History: HTN, Dyslipidemia, PUD/GERD, Dementia Family History: HTN Social History: Non Smoker, No Alcohol, No Drug Use, , Care Facility Surgical History: Cholecystectomy Psychiatricy History: Dementia Medication: Reviewed Family Medical History - Family Member Mother History Unknown: Yes Living Status: ED Physical Exam - Physical Examination General/Constitutional: Awake, Well-developed, well-nourished, Alert, No distress, GCS 15, Non-toxic appearing, Ambulatory Head: Atraumatic Eyes: Lids, conjuctiva normal, PERRL, EOMI Skin: Nl inspection, No rash, No skin lesions, No ecchymosis, Well hydrated, No lymphadenopathy ENMT: External ears, nose nl, TM canals nl, Nasal exam nl, Lips, teeth, gums nl , Oropharynx nl, Tonsils nl Neck: Nontender, Full ROM w/o pain, No JVD, No nuchal rigidity, No bruit, No mass, No stridor Other Neck comments:: supple; no meningeal signs Respiratory: Nl effort/Exclusion Other Respiratory comments:: Lungs: + Rales and Rhonchi Cardio Vascular: RRR, No murmur, gallop, rubs, NL S1 S2, Carotid/Femoral/Distal pulses equal bilaterally GI: No tenderness/rebounding/guarding, No organomegaly, No hernia, Normal BS's, Nondistended, No mass/bruits, No McBurney tenderness Other GI comments:: no pulsatile masses : No CVA tenderness Extremities: No tenderness or effusion, Full ROM, normal strength in all extremities, No edema, Normal digits & nails Neuro/Psych: Alert/oriented, DTR's symmetric, Normal sensory exam, Normal motor strength, Judgement/insight normal, Mood normal, Normal gait, No focal deficits Misc: Normal back, No paraspinal tenderness ED Labs/Radiology/EKG Results - Lab Results Comments:: Reviewed - Radiology Results Comments:: CXR: + Infiltrate - EKG Interpretations Rate & Rhythm: NSR Comments:: non-specific st-t changes ED Septic Shock - . Is Septic Shock (SBP<90, OR Lactate>4 mmol\L) present?: No ED Reassessment (Disposition) - Reassessment Reassessment Condition:: Improved - Diagnosis Diagnosis:: Dementia; AMS; ALOC; Fever; Cough; Congestion; Pneumonia; Leukocytosis; UTI; Sepsis; Urosepsis; HTN: Dehydration; Hypoalbuminemia - Aftercare/Follow up Instructions Aftercare/Follow-Up Instructions:: Counseled pt regarding lab results/diagnosis & need follow up, Counseled pt & family regarding lab results/diagnosis & need follow up - Patient Disposition Discharge/Transfer:: Acute Care w/in this hosp Accepting Physician:: Dr. Nava Time Called:: 1300 Time Responded:: 13:00 Admitted to:: Telemetry Spoke to:: Dr. Nava Admitting Medical Physician:: Dr. Nava Condition at Disposition:: Stable, Improved
[2018-09-17 12:14] LABS: URINE SOURCE MIDSTREAM
[2018-09-17 12:27] LABS: HEMATOCRIT 48.3 % (41.0-60); HEMOGLOBIN 16.3 gm/dL (12-16); MEAN CORPUSCULAR HEMOGLOBIN 31.5 pg (26.0-30.0); MEAN CORPUSCULAR HGB CONC 33.8 pg (28.0-36.0); PLATELET COUNT 180 Th/cmm (150-400); RED BLOOD COUNT 5.19 Mil/cmm (4.30-5.70)
[2018-09-17 12:29] LABS: URINE BILIRUBIN NEGATIVE (NEGATIVE); URINE BLOOD LARGE (NEGATIVE); URINE GLUCOSE (UA) NEGATIVE (NEGATIVE); URINE KETONE TRACE mg/dL (NEGATIVE); URINE LEUKOCYTE ESTERASE MODERATE (NEGATIVE); URINE MICROSCOPIC INDICATED? YES; URINE NITRATE NEGATIVE (NEGATIVE); URINE PROTEIN >=300 mg/dL (NEGATIVE); URINE UROBILINOGEN 0.2 E.U./dL (0.2 - 1.0)
[2018-09-17 12:32] LABS: URINE CLARITY CLOUDY (CLEAR); URINE COLOR BROWN
[2018-09-17 12:42] LABS: WHITE BLOOD COUNT 22.8 Th/cmm (4.8-10.8)
[2018-09-17 12:47] LABS: URINE RBC 50-100 /hpf (0-5)
[2018-09-17 12:49] LABS: URINE BACTERIA MODERATE /hpf (NONE SEEN); URINE WBC >100 /hpf (0-5)
[2018-09-17 12:50] LABS: URINE EPITHELIAL CELLS FEW /lpf (FEW)
[2018-09-17] MEDS ORDERED: cefTRIAXone 1 GM in Sodium Chloride 0.9% 50 ML IV ONE (12:51)
[2018-09-17] MEDS ORDERED: Azithromycin 500 MG in Sodium Chloride 0.9% 250 ML IV ONE (12:52)
[2018-09-17 12:54] LABS: ALBUMIN 2.4 gm/dL (4.2-5.5); ALKALINE PHOSPHATASE 42 U/L (34-104); AMYLASE SERUM 49 U/L (29-103); ANION GAP 12.7 (7.0-16.0); BILIRUBIN,TOTAL 0.4 mg/dL (0.3-1.0); BUN - UREA NITROGEN 47 mg/dL (7-25); CARBON DIOXIDE 19.2 mEq/L (21.0-31.0); CHLORIDE 114 mEq/L (98-107); CREATININE - SERUM 1.5 mg/dL (0.7-1.3); CREATININE KINASE 57 U/L (30-223); GFR AFRICAN-AMERICAN > 60.0 ml/min (>90); GFR NON AFRICAN-AMERICAN 50.7 ml/min; GLUCOSE 92 mg/dL (70-105); LIPASE 38 U/L (11-82); POTASSIUM SERUM 3.9 mEq/L (3.5-5.1); SGOT 11 U/L (13-39); SGPT/ALT 15 U/L (7-52); SODIUM SERUM 142 mEq/L (136-145); TOTAL PROTEIN,SERUM 4.8 gm/dL (6.0-8.3)
[2018-09-17 13:00] LABS: TROP I < 0.01 ng/mL (0.01-0.05)
[2018-09-17 13:05] LABS: INR 1.06 (0.5-1.4)
--- NOTE | 2018-09-17 13:20 | Diagnostic Imaging Report ---
Portable chest x-ray HISTORY: Fever, cough The heart size is difficult to assess with portable technique in a poor inspiration. No acute focal bony processes. No hilar or mediastinal abnormalities. Surgical changes seen within the cervical spine. IMPRESSION: 1. No acute focal pulmonary processes
[2018-09-17 13:51] LABS: MEAN PLATELET VOLUME 7.3 fl
[2018-09-17 13:52] LABS: BAND NEUTROPHILE 6 % (0-10); BASOPHIL 0 % (0-3); EOSINOPHIL 0 % (0-5); LYMPHOCYTE 10 % (20-50); MONOCYTE 4 % (2-10); NEUTROPHILS 80 % (40-80)
[2018-09-17 16:14] VITALS: BP 108/59
[2018-09-17] MEDS: D5-0.9%NS 1,000 ML IV SCH (17:09)
[2018-09-17] MEDS: Albuterol/Ipratropium Neb 3 ML AERS HHN SCH (18:37)
[2018-09-17] MEDS: Hydrocodone/APAP 10 mg/325 mg Tab PO PRN (20:13)
[2018-09-17] MEDS ORDERED: Cefepime 1 GM in Sodium Chloride 0.9% 50 ML IV SCH (21:00)
--- NOTE | 2018-09-18 03:21 | Consultation ---
DATE OF CONSULTATION: 09/17/2018 INFECTIOUS DISEASE CONSULTATION REFERRING PHYSICIAN: Dr. William Nava. REASON FOR CONSULTATION: Sepsis and UTI. HISTORY OF PRESENT ILLNESS: The patient is a 58-year-old male with a past medical history of severe dementia, bedridden status, right-sided gluteal ulcer since 10/2015, admitted, developed fever and cough with congestion for the last 2 days. He was ____. On initial evaluation, his temperature was 97.4 degrees Fahrenheit and WBC count was 22,800 with neutrophil 80%. Urinalysis showed pyuria and bacteria. Chest x-ray was negative. The patient was admitted with diagnosis of sepsis secondary to urinary tract infection. The patient was started on Zithromax and Rocephin. ID consult was called for further antibiotic management. PAST MEDICAL HISTORY: Severe dementia, bedridden status, history of urinary tract infections in the past, right gluteal wound, contractures of extremities, history of pyelonephritis and perinephric abscess, hypertension, obesity, history of DVT, and seizure disorder. ALLERGIES: PNEUMONIA VACCINE. MEDICATIONS: As per medication reconciliation sheet. Antibiotic solitario, the patient is receiving Rocephin and Zithromax. FAMILY HISTORY: Noncontributory. REVIEW OF SYSTEMS: GENERAL: The patient is unable to give any history ____. Had fever at nursing facility, no fever noticed here. SOCIAL HISTORY: The patient lives in a nursing facility. No history of smoking, alcohol or drug use. PHYSICAL EXAMINATION: GENERAL: The patient is lying in the bed, not in acute distress, well-nourished, well-developed: VITAL SIGNS: Current vital signs show temperature is 98.5, pulse 94, respirations 19, blood pressure 108/59. HEENT: Head is normocephalic, atraumatic. Oral cavity moist, pink tongue. NECK: Supple, no JVD, no carotid bruit. Trachea midline. CHEST: Bilateral breath sounds. No crackles or wheezing. HEART: S1, S2 within normal limits. Regular rhythm. No murmur, no gallop. ABDOMEN: Soft, nontender, nondistended. Bowel sounds present. Colostomy. SKIN: The patient has right gluteal wound. No erythema, no discharge. EXTREMITIES: No cyanosis, no clubbing, no edema. NEUROLOGIC: Alert and awake, confused. LABORATORY DATA: Current lab shows WBC of 22,800, hemoglobin 16.3, hematocrit 48.8, platelets are 180,000, neutrophil 80%, bands are 6%. INR 1.06. Sodium 142, potassium 3.9, chloride 140, bicarbonate is 19, BUN is 47, creatinine 1.5, glucose is 92. Lactic acid was 1.62. Urinalysis with large blood with moderate leukocyte esterase, wbc's more than 100, moderate bacteria. Chest x-ray showed no acute disease. IMPRESSION: 1. Sepsis. 2. Urinary tract infection, rule out pyelonephritis. The patient already has history of renal abscess. We will get a CT scan of the abdomen and pelvis. 3. Altered mental status secondary to metabolic encephalopathy. 4. Acute renal failure, acute kidney injury, likely secondary to dehydration. 5. Right hip wound, no sign of infection . 6. History of hypertension. 7. Dyslipidemia. 8. Severe dementia. RECOMMENDATIONS AND PLAN: Continue Zosyn and Dc other antibiotics. IV fluid with normal saline at 80 mL per hour. Follow the urine culture report and go from there. Thank you, Dr. Nava for involving me in taking care of this patient. JOB# [id number] KIM
[2018-09-18 04:34] LABS: HEMOGLOBIN 14.4 gm/dL (12-16)
[2018-09-18 04:44] LABS: MEAN CELL VOLUME 92.9 fl (80-99); MEAN CORPUSCULAR HEMOGLOBIN 31.1 pg (26.0-30.0); MEAN CORPUSCULAR HGB CONC 33.5 pg (28.0-36.0); MEAN PLATELET VOLUME 7.8 fl; PLATELET COUNT 199 Th/cmm (150-400); RED BLOOD COUNT 4.62 Mil/cmm (4.30-5.70); RED CELL DISTRIBUTION WIDTH 12.9 % (11.5-20.0)
[2018-09-18 05:06] LABS: HEMATOCRIT 42.9 % (41.0-60); WHITE BLOOD COUNT 16.5 Th/cmm (4.8-10.8)
[2018-09-18 06:10] LABS: ALBUMIN 3.2 gm/dL (4.2-5.5); ALKALINE PHOSPHATASE 48 U/L (34-104); ANION GAP 12.4 (7.0-16.0); BILIRUBIN,TOTAL 0.5 mg/dL (0.3-1.0); BUN - UREA NITROGEN 39 mg/dL (7-25); CALCIUM SERUM 8.8 mg/dL (8.6-10.3); CARBON DIOXIDE 22.7 mEq/L (21.0-31.0); CHLORIDE 109 mEq/L (98-107); CREATININE - SERUM 0.9 mg/dL (0.7-1.3); GFR AFRICAN-AMERICAN > 60.0 ml/min (>90); GFR NON AFRICAN-AMERICAN > 60.0 ml/min; GLUCOSE 121 mg/dL (70-105); POTASSIUM SERUM 4.1 mEq/L (3.5-5.1); SGOT 13 U/L (13-39); SGPT/ALT 19 U/L (7-52); SODIUM SERUM 140 mEq/L (136-145); TOTAL PROTEIN,SERUM 6.4 gm/dL (6.0-8.3)
[2018-09-18] MEDS: D5-0.9%NS 1,000 ML IV SCH ×2 (06:15→16:58)
[2018-09-18] MEDS: Albuterol/Ipratropium Neb 3 ML AERS HHN SCH ×3 (07:06→19:07)
[2018-09-18 07:12] LABS: BAND NEUTROPHILE 1 % (0-10); EOSINOPHIL 1 % (0-5); LYMPHOCYTE 11 % (20-50); MONOCYTE 5 % (2-10); NEUTROPHILS 82 % (40-80)
[2018-09-18] MEDS: Pantoprazole 40 mg/Packet PO SCH (08:29)
[2018-09-18] MEDS: Multivitamin w/ Minerals Tab PO SCH (08:29)
--- NOTE | 2018-09-18 09:36 | History & Physical ---
ADMIT DATE: PATIENT IDENTIFICATION: A 58-year-old male. CHIEF COMPLAINT: Sent to Emergency Room for evaluation of elevated temperature and altered mental status. HISTORY OF PRESENT ILLNESS: A 58-year-old resident of [facility] with history of dementia, bedridden status with history of right-sided gluteal ulcer since 2016, noted to have a high-grade fever, cough, congestion for the last 2 days. The patient was sent to Emergency Room and noted to have leukocytosis along with 80% neutrophil and urinalysis consistent with pyuria and bacteriuria. The patient is advised to be admitted in the hospital for further treatment. The patient does not provide a meaningful history. PAST MEDICAL HISTORY: Remarkable for: 1. Severe dementia. 2. Hypertension. 3. Seizure disorder. 4. Peripheral vascular disease. 5. Obesity. 6. History of DVT. 7. History of recurrent UTI. MEDICATIONS: At the time of transfer has been reviewed and reconciled appropriately. ALLERGIES: The patient allergic to pneumonia vaccine. SOCIAL HISTORY: He is a resident of [facility]. No history of smoking cigarette, alcohol, or drug use. FAMILY MEDICAL HISTORY: Unavailable due to the patient's current mental status. REVIEW OF SYSTEMS: Unable to get meaningful history from the patient. PHYSICAL EXAMINATION: GENERAL: The patient is alert, awake, lying in the bed without any acute distress, unable to get meaningful history from the patient. VITAL SIGNS: Temperature 99.9, pulse 71, respiratory rate was 18, blood pressure 117/78. HEENT: Normocephalic, atraumatic. Extraocular muscles are intact. Tongue was pink and coated. Oropharynx is congested. Nasal mucosa is congested. No facial asymmetry. NECK: Supple, no JVD, no hepatojugular reflex. No lymphadenopathy, thyromegaly or carotid bruit. HEART: Both heart sounds are heard, regular. No S3, no S4, no murmur. CHEST AND LUNG: Equal in expansion with no expiratory wheezing. ABDOMEN: Soft. No guarding. No rigidity. Bowel sounds present. No palpable mass. EXTREMITIES: No edema, no cyanosis. Atrophy of the muscles of upper and lower extremity noted. BACK: Remarkable for right gluteal wound noted. The erythema or discharge noted. NEUROLOGIC: Alert, awake, but not following any commands. AVAILABLE DIAGNOSTIC DATA: White count 22,800; hemoglobin 16.3; platelet count of 180,000. Bands were 6%. Creatinine is 1.5, sodium 142, potassium 3.9, chloride 140, bicarbonate of 19, glucose of 92, lactic acid 1.62. Urinalysis consistent with large blood with moderate leukocyte esterase with WBC more than 100, moderate bacteria was noted. Chest x-ray was no infiltrate. CLINICAL IMPRESSION: 1. High-grade fever secondary to complicated urinary tract infection, rule out pyelonephritis. 2. Altered mental status secondary to encephalopathy caused by infection. 3. Sepsis. 4. Acute kidney injury. 5. Right hip wound. 6. Hypertension. 7. Severe dementia. 8. Peripheral vascular disease. 9. Seizure disorder. 10. Obesity. PLAN: 1. Admit this patient to Med/Surg telemetry unit, provide oxygen. 2. Nebulizer treatment. 3. IV fluid. 4. IV antibiotic. 5. Infectious Disease consultation. 6. Appropriate home medicine reconciliation. 7. General nursing care. 8. Follow lab. 9. Follow consult recommendation. 10. Care plan reviewed and discussed with staff. JOB# [id number]
--- NOTE | 2018-09-19 03:16 | Infectious Disease Prog Note ---
Infectious Disease Subjective - Review of Systems Service Date: 09/18/18 Subjective: doing well, no fever Infectious Disease Objective - Results Result Diagrams: 09/21/18 08:10 09/21/18 08:10 Recent Labs: Laboratory Last Values WBC 16.5 Th/cmm (4.8-10.8) H D 09/18/18 04:20 RBC 4.62 Mil/cmm (4.30-5.70) 09/18/18 04:20 Hgb 14.4 gm/dL (12-16) 09/18/18 04:20 Hct 42.9 % (41.0-60) D 09/18/18 04:20 MCV 92.9 fl (80-99) 09/18/18 04:20 MCH 31.1 pg (26.0-30.0) H 09/18/18 04:20 MCHC Differential 33.5 pg (28.0-36.0) 09/18/18 04:20 RDW 12.9 % (11.5-20.0) 09/18/18 04:20 Plt Count 199 Th/cmm (150-400) 09/18/18 04:20 MPV 7.8 fl 09/18/18 04:20 Add Manual Diff YES 09/18/18 04:20 Neutrophils % RESIDENT DOCTOR 09/17/18 12:09 Band Neutrophils % 1 % (0-10) 09/18/18 04:20 Lymphocytes % RESIDENT DOCTOR 09/17/18 12:09 Monocytes % RESIDENT DOCTOR 09/17/18 12:09 Basophils % RESIDENT DOCTOR 09/17/18 12:09 Neutrophils (Manual) 82 % (40-80) H 09/18/18 04:20 Lymphocytes 11 % (20-50) L 09/18/18 04:20 Monocytes 5 % (2-10) 09/18/18 04:20 Eosinophils 1 % (0-5) 09/18/18 04:20 Basophils 0 % (0-3) 09/17/18 12:09 PT 11.0 SECONDS (9.5-11.5) 09/17/18 12:09 INR 1.06 (0.5-1.4) 09/17/18 12:09 PTT (Actin FS) 29.2 SECONDS (26.0-38.0) 09/17/18 12:09 Sodium 140 mEq/L (136-145) 09/18/18 04:20 Potassium 4.1 mEq/L (3.5-5.1) 09/18/18 04:20 Chloride 109 mEq/L (98-107) H 09/18/18 04:20 Carbon Dioxide 22.7 mEq/L (21.0-31.0) 09/18/18 04:20 Anion Gap 12.4 (7.0-16.0) 09/18/18 04:20 BUN 39 mg/dL (7-25) H 09/18/18 04:20 Creatinine 0.9 mg/dL (0.7-1.3) 09/18/18 04:20 Est GFR ( Amer) > 60.0 ml/min (>90) 09/18/18 04:20 Est GFR (Non-Af Amer) > 60.0 ml/min 09/18/18 04:20 BUN/Creatinine Ratio 43.3 09/18/18 04:20 Glucose 121 mg/dL (70-105) H 09/18/18 04:20 Whole Bld Lactic Acid 1.62 mmol/L (0.60-1.99) 09/17/18 12:09 Calcium 8.8 mg/dL (8.6-10.3) 09/18/18 04:20 Total Bilirubin 0.5 mg/dL (0.3-1.0) 09/18/18 04:20 AST 13 U/L (13-39) 09/18/18 04:20 ALT 19 U/L (7-52) 09/18/18 04:20 Alkaline Phosphatase 48 U/L (34-104) 09/18/18 04:20 Creatine Kinase 57 U/L (30-223) 09/17/18 12:09 Troponin I < 0.01 ng/mL (0.01-0.05) L 09/17/18 12:09 Total Protein 6.4 gm/dL (6.0-8.3) 09/18/18 04:20 Albumin 3.2 gm/dL (4.2-5.5) L 09/18/18 04:20 Globulin 3.2 gm/dL 09/18/18 04:20 Albumin/Globulin Ratio 1.0 (1.0-1.8) 09/18/18 04:20 Amylase 49 U/L (29-103) 09/17/18 12:09 Lipase 38 U/L (11-82) 09/17/18 12:09 Urine Source MIDSTREAM 09/17/18 12:00 Urine Color BROWN 09/17/18 12:00 Urine Clarity CLOUDY (CLEAR) 09/17/18 12:00 Urine pH 5.0 (4.6 - 8.0) 09/17/18 12:00 Ur Specific Crowder 1.025 (1.005-1.030) 09/17/18 12:00 Urine Protein >=300 mg/dL (NEGATIVE) 09/17/18 12:00 Urine Glucose (UA) NEGATIVE mg/dL (NEGATIVE) 09/17/18 12:00 Urine Ketones TRACE mg/dL (NEGATIVE) 09/17/18 12:00 Urine Blood LARGE (NEGATIVE) H 09/17/18 12:00 Urine Nitrate NEGATIVE (NEGATIVE) 09/17/18 12:00 Urine Bilirubin NEGATIVE (NEGATIVE) 09/17/18 12:00 Urine Urobilinogen 0.2 E.U./dL (0.2 - 1.0) 09/17/18 12:00 Ur Leukocyte Esterase MODERATE (NEGATIVE) H 09/17/18 12:00 Urine RBC 50-100 /hpf (0-5) H 09/17/18 12:00 Urine WBC >100 /hpf (0-5) H 09/17/18 12:00 Ur Epithelial Cells FEW /lpf (FEW) 09/17/18 12:00 Urine Bacteria MODERATE /hpf (NONE SEEN) H 09/17/18 12:00 - Physical Exam Vitals and I&O: Vital Signs Temp 97.8 F 09/19/18 00:00 Pulse 77 09/19/18 00:00 Resp 20 09/19/18 01:51 BP 122/81 09/19/18 00:00 Pulse Ox 97 09/19/18 01:51 Intake & Output 09/18/18 09/18/18 09/19/18 06:59 18:59 06:59 Intake Total 1100 1357.333 Output Total 1400 1100 Balance -300 257.333 Weight (lbs) 105.596 kg 108.862 kg Intake: Intake, IV Amount 1100 957.333 D5-0.9%Ns 1,000 ml @ 80 1000 857.333 mls/hr IV .[id number] JOSEFA Rx #:[id number] Piperacillin Sodium/ 100 100 Tazobact 3.375 gm In Sodium Chloride 0.9% 50 ml @ 100 mls/hr IV Q6HR [facility] Rx#:[id number] Oral 400 Output: Urine 1400 1100 Other: # Bowel Movements 2 2 Stool Characteristics Liquid Liquid Brown Brown Weight Source Bedscale Bedscale Active Medications: Current Medications Acetaminophen (Tylenol) 650 mg PO Q6H PRN PRN Reason: Mild Pain/Headache/T above 101 Stop: 11/16/18 14:49 Acetaminophen/Hydrocodone Bitart ([place] 10 Mg/325 Mg) 1 tab PO Q6H PRN PRN Reason: Moderate Pain Stop: 11/16/18 14:59 Last Admin: 09/17/18 20:13 Dose: 1 tab Albuterol/Ipratropium (Duoneb Neb) 3 ml HHN [id number] JOSEFA Stop: 11/16/18 18:59 Last Admin: 09/18/18 19:07 Dose: 3 ml Ascorbic Acid (Vitamin C) 500 mg PO DAILY [facility] Stop: 11/16/18 16:59 Last Admin: 09/18/18 08:29 Dose: 500 mg [place] Oil/Chinese Balsam/Trypsin (Venelex) 1 appl TP DAILY [facility] Stop: 11/18/18 08:59 Docusate Sodium (Colace) 100 mg PO DAILY [facility] Stop: 11/17/18 08:59 Last Admin: 09/18/18 08:29 Dose: 100 mg Donepezil HCl (Aricept) 10 mg PO HS [facility] Stop: 11/16/18 20:59 Last Admin: 09/18/18 21:21 Dose: Not Given Enalapril Maleate (Vasotec) 10 mg PO DAILY JOSEFA Stop: 11/16/18 16:59 Last Admin: 09/18/18 08:29 Dose: 10 mg Gabapentin (Neurontin) 800 mg PO TID [facility] Stop: 11/16/18 20:59 Last Admin: 09/18/18 21:21 Dose: Not Given Piperacillin Sod/Tazobactam (Sod 3.375 gm/ Sodium Chloride) 50 mls @ 100 mls/ hr IV Q6HR [facility] Stop: 11/16/18 17:59 Last Admin: 09/18/18 23:56 Dose: 100 mls/hr Dextrose/Sodium Chloride (D5-0.9%Ns) 1,000 mls @ 80 mls/hr IV .[id number] JOSEFA Stop: 11/16/18 16:14 Last Admin: 09/18/18 16:58 Dose: 80 mls/hr Levetiracetam (Keppra) 500 mg PO BID JOSEFA Stop: 11/16/18 16:59 Last Admin: 09/18/18 17:00 Dose: 500 mg Pantoprazole Sodium (Protonix) 20 mg PO DAILY JOSEFA Stop: 11/17/18 08:59 Last Admin: 09/18/18 08:29 Dose: 20 mg Tamsulosin HCl (Flomax) 0.4 mg PO DAILY JOSEFA Stop: 11/17/18 08:59 Last Admin: 09/18/18 08:29 Dose: 0.4 mg Temazepam (Restoril) 15 mg PO HS PRN; Protocol PRN Reason: Insomnia Stop: 11/16/18 14:49 Tizanidine HCl (Zanaflex) 4 mg PO TID JOSEFA Stop: 11/16/18 20:59 Last Admin: 09/18/18 21:22 Dose: Not Given Zinc Sulfate (Zinc Sulfate) 220 mg PO DAILY JOSEFA Stop: 11/17/18 08:59 Last Admin: 09/18/18 08:29 Dose: 220 mg General: no acute distress, well developed, well nourished HEENT: atraumatic, normocephalic, PERRLA Neck: supple, no thyromegaly Cardiovascular: S1S2, regular Lungs: clear to auscultation bilaterally, clear to percussion Abdomen: soft, other (colostomy), no tender, no distended, no rebound Extremities: other (right hip wound), no cyanosis, no clubbing, no edema Neurological: awake, alert - Procedures Procedures: Procedures Procedure Code Date BYPASS SIGMOID COLON TO CUTANEOUS, OPEN APPROACH [id number] 07/14/17 JASBIR SUBQ TISSUE 20 SQ CM/< 60020 07/14/17 EXCISION OF R UP LEG SUBCU/FASCIA, OPEN APPROACH [id number] 07/14/17 Infectious Disease Assmt/Plan - Assessment Assessment: 1. Sepsis. 2. Urinary tract infection, rule out pyelonephritis. The patient already has history of renal abscess. We will get a CT scan of the abdomen and pelvis. 3. Altered mental status secondary to metabolic encephalopathy. 4. Acute renal failure, acute kidney injury, likely secondary to dehydration. Improving. 5. Right hip wound, no sign of infection. chronic osteomyelitis. 6. History of hypertension. 7. Dyslipidemia. 8. Severe dementia. - Plan Plan: Will continue Zosyn. 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 Pt seen sleeping in bed at time of visit. Family at bedside stated pt ate almost everything this morning per nurse reported. No food preference stated. Current Diet Order/ Nutrition Support pureed Pertinent Medications vit C, D5-0.9%ns, colace, protonix, piperacillin, zinc Pertinent Labs 09/18 Cl 109, BUN 39, glucose 121, alb 3.2 Nutritional Hx/Data Height 1.93 m Height (Calculated Centimeters) 193.0 Current Weight (lbs) 105.233 kg Weight (Calculated Kilograms) 105.2 Weight (Calculated Grams) 259231.4 [place] Body Weight 202 Body Mass Index (BMI) 28.2 Weight Status Overweight GI Symptoms GI Symptoms None Last BM 09/17 x 2 Difficult in: None Skin Integrity/Comment: stage IV pressure ulcer to right buttock Current %PO Good (75-100%) Estimated Nutritional Goals BEE in Kcals: Using Current wt Calories/Kcals/Kg 23-27 Kcals Calculated 3680-4218 Protein: Using Current wt Protein g/k-1.2 Protein Calculated 105-126 Fluid: ml 2415-2835ml (1ml/kcal) Nutritional Problem 1. Problem Problem increased nutrition needs Etiology impaired skin integrity Signs/Symptoms: stage IV pressure ulcer Intervention/Recommendation Comments 1. Continue with pureed diet as ordered. Add Maurice BID for wound healing. 2. Monitor PO intake, wt, labs and skin integrity 3. F/U as moderate risk in 3-5 days Expected Outcomes/Goals Expected Outcomes/Goals 1. PO intake to meet at least 75% of nutritional needs. 2. Wt stability, skin to remain intact, labs to approach WNL.
[2018-09-19 06:13] LABS: HEMATOCRIT 38.7 % (41.0-60); HEMOGLOBIN 13.1 gm/dL (12-16); MEAN CELL VOLUME 92.8 fl (80-99); MEAN CORPUSCULAR HEMOGLOBIN 31.4 pg (26.0-30.0); MEAN CORPUSCULAR HGB CONC 33.9 pg (28.0-36.0); MEAN PLATELET VOLUME 7.8 fl; PLATELET COUNT 163 Th/cmm (150-400); RED BLOOD COUNT 4.17 Mil/cmm (4.30-5.70); RED CELL DISTRIBUTION WIDTH 12.5 % (11.5-20.0); WHITE BLOOD COUNT 12.7 Th/cmm (4.8-10.8)
[2018-09-19] MEDS: D5-0.9%NS 1,000 ML IV SCH (06:23)
[2018-09-19 06:28] LABS: ALBUMIN 3.1 gm/dL (4.2-5.5); ALKALINE PHOSPHATASE 44 U/L (34-104); ANION GAP 10.9 (7.0-16.0); BILIRUBIN,TOTAL 0.4 mg/dL (0.3-1.0); BUN - UREA NITROGEN 22 mg/dL (7-25); CALCIUM SERUM 8.6 mg/dL (8.6-10.3); CHLORIDE 111 mEq/L (98-107); CREATININE - SERUM 0.6 mg/dL (0.7-1.3); GFR AFRICAN-AMERICAN > 60.0 ml/min (>90); GFR NON AFRICAN-AMERICAN > 60.0 ml/min; GLUCOSE 118 mg/dL (70-105); POTASSIUM SERUM 3.9 mEq/L (3.5-5.1); SGOT 17 U/L (13-39); SGPT/ALT 23 U/L (7-52); SODIUM SERUM 141 mEq/L (136-145); TOTAL PROTEIN,SERUM 6.2 gm/dL (6.0-8.3)
[2018-09-19 06:58] LABS: BAND NEUTROPHILE 1 % (0-10); BASOPHIL 0 % (0-3); EOSINOPHIL 1 % (0-5); LYMPHOCYTE 13 % (20-50); MONOCYTE 6 % (2-10); NEUTROPHILS 79 % (40-80)
[2018-09-19] MEDS: Albuterol/Ipratropium Neb 3 ML AERS HHN SCH ×3 (06:58→18:30)
[2018-09-19] MEDS: Multivitamin w/ Minerals Tab PO SCH (08:19)
[2018-09-19] MEDS: Pantoprazole 40 mg/Packet PO SCH (08:19)
[2018-09-19] MEDS: Venelex 60gm Tube TP SCH (08:20)
--- NOTE | 2018-09-19 23:35 | Progress Notes ---
DATE: 09/19/2018 SUBJECTIVE: The patient is seen and examined. The patient is lying in the bed. The patient is more alert, awake. The patient's at bedside. The patient has been seen by therapeutic consultant, consultants help greatly appreciated. PHYSICAL EXAMINATION: VITAL SIGNS: Temperature 98.1, pulse 63, respiratory rate 18, blood pressure 110/63. HEENT: No facial asymmetry, masklike face noted. NECK: Supple, no JVD. HEART: Regular. CHEST AND LUNGS: Equal in expansion, no expiratory wheezing. ABDOMEN: Soft. No guarding, no rigidity. Bowel sounds present. No palpable mass. EXTREMITIES: No edema. NEUROLOGIC: Alert, awake, not following any commands. AVAILABLE DIAGNOSTIC DATA: Reviewed. CLINICAL IMPRESSION: 1. Complicated urinary tract infection. 2. Sepsis. 3. Pyelonephritis. 4. Encephalopathy. 5. Dementia. 6. Hypertension. 7. Peripheral vascular disease. 8. Stage IV decubitus wound. PLAN: 1. Wound care. 2. Antibiotic. 3. CT scan of abdomen and pelvis. 4. Nutritional support. 5. General nursing care. 6. Appropriate home medicine reconciliation. 7. Follow lab. 8. Follow consult recommendation. 9. Care plan reviewed and discussed with staff. JOB# [id number] [email or web address]
[2018-09-20] MEDS: D5-0.9%NS 1,000 ML IV SCH ×2 (01:03→16:19)
[2018-09-20] MEDS: Albuterol/Ipratropium Neb 3 ML AERS HHN SCH ×3 (07:14→19:31)
[2018-09-20] MEDS: Pantoprazole 40 mg/Packet PO SCH (08:41)
[2018-09-20] MEDS: Multivitamin w/ Minerals Tab PO SCH (08:41)
[2018-09-20] MEDS: Venelex 60gm Tube TP SCH (08:53)
--- NOTE | 2018-09-20 11:20 | Diagnostic Imaging Report ---
CT abdomen and pelvis without intravenous contrast Indication: Renal abscess Comparison: Renal ultrasound performed on 328, Technique: Axial images were obtained from the lung bases to the bilateral proximal femurs without IV contrast. Coronal reconstructions were made. total DLP: 916, CTDI17.5 FINDINGS: Exam is limited due to motion. Bibasal atelectasis versus less likely infiltrates are noted. Evaluation of solid organs also limited due to motion. The hepatic dome is incompletely visualized. No focal hepatic lesions. No focal splenic lesions. Patient status post cholecystectomy. Evaluation of pancreas was limited on this exam due to motion no focal adrenal lesions. There are mild bilateral perinephric inflammatory changes. There is a 1.1 cm low-density lesion of the right posterior kidney probably a cyst. No hydronephrosis. Minimal inflammatory changes of the mesenteric and pelvic fat planes are noted with trace free fluid noted along the presacral region. There is evidence of sigmoidectomy and left lower quadrant ostomy. Note is however made of distal fecal impaction with blind distal sigmoid colon loop noted. Diverticulosis is noted. No diverticulitis. Berry catheter seen within the urinary bladder with small pocket of gas in the urinary bladder wall thickening and mild surrounding inflammatory changes. Small fat-containing left inguinal hernia is noted. Anasarca is noted. Degenerative changes of the spine are noted with scoliosis degenerative changes of pelvis. There is soft tissue density and along the right posterior buttock possible small soft tissue defect. The soft tissue density extend extensive adjacent to the posterior aspect of the right iliac bone with mild increased density of the posterior aspect of the right iliac bone in this region. There is 6 mm sclerotic density of the posterior right iliac bone probably a bone island. IMPRESSION: Limited exam due to lack of IV contrast. Berry catheter within the urinary bladder with diffuse bladder wall thickening and mild surrounding inflammatory changes. Please correlate clinically for infectious/inflammatory process. Pocket of air is also seen within the urinary bladder which may be due to instrumentation or inflammatory process. Mild nonspecific perinephric inflammatory changes. Evidence of previous sigmoidectomy and left lower quadrant ostomy. Distal fecal impaction noted. Blind distal loop of resected sigmoid colon is noted. Diverticulosis. 1.1 cm low-density lesion of the peripheral right kidney probably a cyst. Infectious or inflammatory process is less likely. Mild nonspecific inflammatory changes along the abdominal and pelvic fat planes are trace free fluid along the presacral region. Anasarca. Areas of soft tissue density along the right buttock extending adjacent to the posterior right iliac bone and right sacrum probably sequela of infectious/ inflammatory process and probable small decubitus ulcer of the right buttock region. Clinical correlation and follow-up is recommended. There may be chronic osteomyelitis of the posterior aspect of the right iliac bone as increased sclerosis is seen in this region. Bibasal atelectasis versus less likely infiltrates. Please refer to above for details.
--- NOTE | 2018-09-20 19:37 | Progress Notes ---
DATE: 09/20/2018 DATE OF SERVICE: 09/20/2018 IDENTIFICATION: A 58-year-old male. SUBJECTIVE: The patient seen and examined. The patient is lying in the bed. The patient is nonverbal. Medication admission record along with the nurse's note reviewed. PHYSICAL EXAMINATION: VITAL SIGNS: Temperature 97.1, pulse is 73, respiratory rate 18, blood pressure 123/83. HEENT: No facial asymmetry. Mask-like face noted. NECK: Supple, no JVD. HEART: Both heart sounds are regular. CHEST AND LUNGS: Equal in expansion, no expiratory wheezing. ABDOMEN: Soft. No guarding, no rigidity. Bowel sounds present. No palpable mass. EXTREMITIES: No edema. Spasticity of upper and lower extremity noted. NEUROLOGIC: Alert, awake, but not following any commands. AVAILABLE DIAGNOSTIC DATA: No labs for my review today. CT scan of the abdomen and pelvis is currently pending. Urine culture has grown Providencia rettgeri 60,000 colony. Sensitivity to pretty much all organisms except for resistance to tetra, Macrobid, cefazolin; intermittent sensitivity to ceftazidime, Unasyn, and ampicillin. CLINICAL IMPRESSION: 1. Providencia urinary tract infection with pyelonephritis. 2. Sepsis, resolving. 3. Alzheimer's dementia. 4. Hypertension. 5. Peripheral vascular disease. 6. Seizure disorder. PLAN: 1. Follow up lab for tomorrow. 2. Await CT scan of the abdomen and pelvis result. 3. Infectious Disease followup. 4. Continue current treatment plan as prescribed. 5. Symptoms management. 6. Nutritional support. 7. Medication management. 8. General nursing care. 9. Care plan reviewed and discussed with staff. JOB# [id number]
[2018-09-21] MEDS: Albuterol/Ipratropium Neb 3 ML AERS HHN SCH ×3 (06:59→19:49)
[2018-09-21] MEDS: D5-0.9%NS 1,000 ML IV SCH ×4 (07:28→23:49)
[2018-09-21 08:20] LABS: % BASOPHILS 0.6 % (0.0-2.0); % EOSINOPHILS 3.1 % (0.0-5.0); % LYMPHOCYTES 19.6 % (20.0-50.0); % MONOCYTES 2.3 % (2.0-10.0); % NEUTROPHILS 74.4 % (40.0-80.0); BASOPHILE ABSOLUTE 0.1 Th/cumm (0-0.2); EOSINOPHILE ABSOLUTE 0.3 Th/cmm (0.1-0.4); HEMATOCRIT 42.2 % (41.0-60); HEMOGLOBIN 14.3 gm/dL (12-16); LYMPHOCYTE ABSOLUTE 1.9 Th/cmm (1.5-3.0); MEAN CELL VOLUME 92.3 fl (80-99); MEAN CORPUSCULAR HEMOGLOBIN 31.3 pg (26.0-30.0); MONOCYTE ABSOLUTE 0.2 Th/cmm (0.3-1.0); NEUTROPHILE ABSOLUTE 7.3 Th/cmm (1.8-8.0); PLATELET COUNT 205 Th/cmm (150-400); RED BLOOD COUNT 4.57 Mil/cmm (4.30-5.70); RED CELL DISTRIBUTION WIDTH 12.1 % (11.5-20.0); WHITE BLOOD COUNT 9.8 Th/cmm (4.8-10.8)
[2018-09-21 08:39] LABS: ALBUMIN 3.3 gm/dL (4.2-5.5); ALKALINE PHOSPHATASE 60 U/L (34-104); ANION GAP 10.9 (7.0-16.0); BILIRUBIN,TOTAL 0.7 mg/dL (0.3-1.0); BUN - UREA NITROGEN 9 mg/dL (7-25); CARBON DIOXIDE 23.9 mEq/L (21.0-31.0); CHLORIDE 105 mEq/L (98-107); CREATININE - SERUM 0.5 mg/dL (0.7-1.3); GFR AFRICAN-AMERICAN > 60.0 ml/min (>90); GFR NON AFRICAN-AMERICAN > 60.0 ml/min; GLUCOSE 119 mg/dL (70-105); POTASSIUM SERUM 3.8 mEq/L (3.5-5.1); SGOT 28 U/L (13-39); SGPT/ALT 50 U/L (7-52); SODIUM SERUM 136 mEq/L (136-145); TOTAL PROTEIN,SERUM 6.6 gm/dL (6.0-8.3)
[2018-09-21] MEDS: Multivitamin w/ Minerals Tab PO SCH (08:50)
[2018-09-21] MEDS: Pantoprazole 40 mg/Packet PO SCH (08:50)
[2018-09-21] MEDS: Docusate Sodium/Senna Tab PO SCH ×2 (09:43→16:10)
[2018-09-21] MEDS: Venelex 60gm Tube TP SCH (09:43)
[2018-09-21] MEDS: POLYETHYLENE GLYCOL 3350 17 GM PACK PO SCH (09:44)
--- NOTE | 2018-09-21 14:41 | Infectious Disease Prog Note ---
Infectious Disease Subjective - Review of Systems Service Date: 09/21/18 Subjective: doing well, no fever Infectious Disease Objective - Results Result Diagrams: 09/21/18 08:10 09/21/18 08:10 Recent Labs: Laboratory Last Values WBC 9.8 Th/cmm (4.8-10.8) 09/21/18 08:10 RBC 4.57 Mil/cmm (4.30-5.70) 09/21/18 08:10 Hgb 14.3 gm/dL (12-16) 09/21/18 08:10 Hct 42.2 % (41.0-60) 09/21/18 08:10 MCV 92.3 fl (80-99) 09/21/18 08:10 MCH 31.3 pg (26.0-30.0) H 09/21/18 08:10 MCHC Differential 34.0 pg (28.0-36.0) 09/21/18 08:10 RDW 12.1 % (11.5-20.0) 09/21/18 08:10 Plt Count 205 Th/cmm (150-400) 09/21/18 08:10 MPV 7.0 fl 09/21/18 08:10 Add Manual Diff YES 09/19/18 05:30 Neutrophils % 74.4 % (40.0-80.0) 09/21/18 08:10 Band Neutrophils % 1 % (0-10) 09/19/18 05:30 Lymphocytes % 19.6 % (20.0-50.0) L 09/21/18 08:10 Monocytes % 2.3 % (2.0-10.0) 09/21/18 08:10 Eosinophils % 3.1 % (0.0-5.0) 09/21/18 08:10 Basophils % 0.6 % (0.0-2.0) 09/21/18 08:10 Neutrophils (Manual) 79 % (40-80) 09/19/18 05:30 Lymphocytes 13 % (20-50) L 09/19/18 05:30 Monocytes 6 % (2-10) 09/19/18 05:30 Eosinophils 1 % (0-5) 09/19/18 05:30 Basophils 0 % (0-3) 09/19/18 05:30 PT 11.0 SECONDS (9.5-11.5) 09/17/18 12:09 INR 1.06 (0.5-1.4) 09/17/18 12:09 PTT (Actin FS) 29.2 SECONDS (26.0-38.0) 09/17/18 12:09 Sodium 136 mEq/L (136-145) 09/21/18 08:10 Potassium 3.8 mEq/L (3.5-5.1) 09/21/18 08:10 Chloride 105 mEq/L (98-107) 09/21/18 08:10 Carbon Dioxide 23.9 mEq/L (21.0-31.0) 09/21/18 08:10 Anion Gap 10.9 (7.0-16.0) 09/21/18 08:10 BUN 9 mg/dL (7-25) 09/21/18 08:10 Creatinine 0.5 mg/dL (0.7-1.3) L 09/21/18 08:10 Est GFR ( Amer) > 60.0 ml/min (>90) 09/21/18 08:10 Est GFR (Non-Af Amer) > 60.0 ml/min 09/21/18 08:10 BUN/Creatinine Ratio 18.0 09/21/18 08:10 Glucose 119 mg/dL (70-105) H 09/21/18 08:10 Whole Bld Lactic Acid 1.62 mmol/L (0.60-1.99) 09/17/18 12:09 Calcium 9.0 mg/dL (8.6-10.3) 09/21/18 08:10 Total Bilirubin 0.7 mg/dL (0.3-1.0) 09/21/18 08:10 AST 28 U/L (13-39) 09/21/18 08:10 ALT 50 U/L (7-52) 09/21/18 08:10 Alkaline Phosphatase 60 U/L (34-104) 09/21/18 08:10 Creatine Kinase 57 U/L (30-223) 09/17/18 12:09 Troponin I < 0.01 ng/mL (0.01-0.05) L 09/17/18 12:09 Total Protein 6.6 gm/dL (6.0-8.3) 09/21/18 08:10 Albumin 3.3 gm/dL (4.2-5.5) L 09/21/18 08:10 Globulin 3.3 gm/dL 09/21/18 08:10 Albumin/Globulin Ratio 1.0 (1.0-1.8) 09/21/18 08:10 Amylase 49 U/L (29-103) 09/17/18 12:09 Lipase 38 U/L (11-82) 09/17/18 12:09 Urine Source MIDSTREAM 09/17/18 12:00 Urine Color BROWN 09/17/18 12:00 Urine Clarity CLOUDY (CLEAR) 09/17/18 12:00 Urine pH 5.0 (4.6 - 8.0) 09/17/18 12:00 Ur Specific [place] 1.025 (1.005-1.030) 09/17/18 12:00 Urine Protein >=300 mg/dL (NEGATIVE) 09/17/18 12:00 Urine Glucose (UA) NEGATIVE mg/dL (NEGATIVE) 09/17/18 12:00 Urine Ketones TRACE mg/dL (NEGATIVE) 09/17/18 12:00 Urine Blood LARGE (NEGATIVE) H 09/17/18 12:00 Urine Nitrate NEGATIVE (NEGATIVE) 09/17/18 12:00 Urine Bilirubin NEGATIVE (NEGATIVE) 09/17/18 12:00 Urine Urobilinogen 0.2 E.U./dL (0.2 - 1.0) 09/17/18 12:00 Ur Leukocyte Esterase MODERATE (NEGATIVE) H 09/17/18 12:00 Urine RBC 50-100 /hpf (0-5) H 09/17/18 12:00 Urine WBC >100 /hpf (0-5) H 09/17/18 12:00 Ur Epithelial Cells FEW /lpf (FEW) 09/17/18 12:00 Urine Bacteria MODERATE /hpf (NONE SEEN) H 09/17/18 12:00 - Physical Exam Vitals and I&O: Vital Signs Temp 98.1 F 09/21/18 11:17 Pulse 65 09/21/18 13:53 Resp 18 09/21/18 13:53 BP 127/78 09/21/18 11:17 Pulse Ox 98 09/21/18 13:53 Intake & Output 09/20/18 09/21/18 09/21/18 18:59 06:59 18:59 Intake Total 1120 1220 Output Total 3700 1600 Balance -2580 -380 Weight (lbs) 111.13 kg 108.862 kg Intake: Intake, IV Amount 1100 1100 D5-0.9%Ns 1,000 ml @ 80 1000 1000 mls/hr IV .[id number] [facility] Rx #:[id number] Piperacillin Sodium/ 100 100 Tazobact 3.375 gm In Sodium Chloride 0.9% 50 ml @ 100 mls/hr IV Q6HR [facility] Rx#:[id number] Oral 20 120 Output: Urine 3000 1100 Stool 200 500 Other 500 Other: Stool Characteristics Liquid Liquid Liquid Brown Brown Brown Weight Source Bedscale Bedscale Active Medications: Current Medications Acetaminophen (Tylenol) 650 mg PO Q6H PRN PRN Reason: Mild Pain/Headache/T above 101 Stop: 11/16/18 14:49 Acetaminophen/Hydrocodone Bitart ([place] 10 Mg/325 Mg) 1 tab PO Q6H PRN PRN Reason: Moderate Pain Stop: 11/16/18 14:59 Last Admin: 09/17/18 20:13 Dose: 1 tab Albuterol/Ipratropium (Duoneb Neb) 3 ml HHN [id number] [facility] Stop: 11/16/18 18:59 Last Admin: 09/21/18 13:52 Dose: 3 ml Ascorbic Acid (Vitamin C) 500 mg PO DAILY JOSEFA Stop: 11/16/18 16:59 Last Admin: 09/21/18 08:50 Dose: 500 mg [place] Oil/[place] Balsam/Trypsin (Venelex) 1 appl TP DAILY JOSEFA Stop: 11/18/18 08:59 Last Admin: 09/21/18 09:43 Dose: 1 appl Donepezil HCl (Aricept) 10 mg PO HS JOSEFA Stop: 11/16/18 20:59 Last Admin: 09/20/18 20:25 Dose: 10 mg Enalapril Maleate (Vasotec) 10 mg PO DAILY [facility] Stop: 11/16/18 16:59 Last Admin: 09/21/18 08:49 Dose: 10 mg Gabapentin (Neurontin) 800 mg PO TID JOSEFA Stop: 11/16/18 20:59 Last Admin: 09/21/18 13:31 Dose: 800 mg Piperacillin Sod/Tazobactam (Sod 3.375 gm/ Sodium Chloride) 50 mls @ 100 mls/ hr IV Q6HR JOSEFA Stop: 11/16/18 17:59 Last Admin: 09/21/18 11:08 Dose: 100 mls/hr Dextrose/Sodium Chloride (D5-0.9%Ns) 1,000 mls @ 80 mls/hr IV .[id number] JOSEFA Stop: 11/16/18 16:14 Last Admin: 09/21/18 08:50 Dose: 80 mls/hr Levetiracetam (Keppra) 500 mg PO BID JOSEFA Stop: 11/16/18 16:59 Last Admin: 09/21/18 08:50 Dose: 500 mg Mupirocin (Bactroban Oint) 1 appl NS BID JOSEFA Stop: 09/24/18 09:01 Last Admin: 09/21/18 08:50 Dose: 1 appl Pantoprazole Sodium (Protonix) 20 mg PO DAILY JOSEFA Stop: 11/17/18 08:59 Last Admin: 09/21/18 08:50 Dose: 20 mg Polyethylene Glycol (Miralax) 17 gm PO DAILY JOSEFA Stop: 11/20/18 08:59 Last Admin: 09/21/18 09:44 Dose: 17 gm Sennosides (Senna Plus 50 Mg-8.6 Mg) 1 tab PO BID JOSEFA Stop: 11/20/18 08:59 Last Admin: 09/21/18 09:43 Dose: 1 tab Tamsulosin HCl (Flomax) 0.4 mg PO DAILY JOSEFA Stop: 11/17/18 08:59 Last Admin: 09/21/18 08:50 Dose: 0.4 mg Temazepam (Restoril) 15 mg PO HS PRN; Protocol PRN Reason: Insomnia Stop: 11/16/18 14:49 Tizanidine HCl (Zanaflex) 4 mg PO TID JOSEFA Stop: 11/16/18 20:59 Last Admin: 09/21/18 13:31 Dose: 4 mg Zinc Sulfate (Zinc Sulfate) 220 mg PO DAILY JOSEFA Stop: 11/17/18 08:59 Last Admin: 09/21/18 08:50 Dose: 220 mg General: no acute distress, well developed, well nourished HEENT: atraumatic, normocephalic, PERRLA Neck: supple, thyromegaly, no lymphadenopathy, no tracheostomy Cardiovascular: S1S2, regular, no irregular Lungs: clear to auscultation bilaterally, clear to percussion, no wheeze, no rhonchi Abdomen: soft, no tender, no distended, no mass Extremities: no cyanosis, no clubbing, no edema Neurological: awake, other (open eyes.) - Procedures Procedures: Procedures Procedure Code Date BYPASS SIGMOID COLON TO CUTANEOUS, OPEN APPROACH [id number] 07/14/17 JASBIR SUBQ TISSUE 20 SQ CM/< 00956 07/14/17 EXCISION OF R UP LEG SUBCU/FASCIA, OPEN APPROACH [id number] 07/14/17 Infectious Disease Assmt/Plan - Assessment Assessment: 1. Sepsis. 2. Urinary tract infection, rule out pyelonephritis. The patient already has history of renal abscess. We will get a CT scan of the abdomen and pelvis. 3. Altered mental status secondary to metabolic encephalopathy. 4. Acute renal failure, acute kidney injury, likely secondary to dehydration. Improving. 5. Right hip wound, no sign of infection. chronic osteomyelitis. 6. History of hypertension. 7. Dyslipidemia. 8. Severe dementia. - Plan Plan: Will continue Zosyn. Add vanco IV Wound care. 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 Pt seen sleeping in bed at time of visit. Family at bedside stated pt ate almost everything this morning per nurse reported. No food preference stated. Current Diet Order/ Nutrition Support pureed Pertinent Medications vit C, D5-0.9%ns, colace, protonix, piperacillin, zinc Pertinent Labs 09/18 Cl 109, BUN 39, glucose 121, alb 3.2 Nutritional Hx/Data Height 1.93 m Height (Calculated Centimeters) 193.0 Current Weight (lbs) 105.233 kg Weight (Calculated Kilograms) 105.2 Weight (Calculated Grams) 288499.4 [place] Body Weight 202 Body Mass Index (BMI) 28.2 Weight Status Overweight GI Symptoms GI Symptoms None Last BM 09/17 x 2 Difficult in: None Skin Integrity/Comment: stage IV pressure ulcer to right buttock Current %PO Good (75-100%) Estimated Nutritional Goals BEE in Kcals: Using Current wt Calories/Kcals/Kg 23-27 Kcals Calculated 0402-5333 Protein: Using Current wt Protein g/k-1.2 Protein Calculated 105-126 Fluid: ml 2415-2835ml (1ml/kcal) Nutritional Problem 1. Problem Problem increased nutrition needs Etiology impaired skin integrity Signs/Symptoms: stage IV pressure ulcer Intervention/Recommendation Comments 1. Continue with pureed diet as ordered. Add Maurice BID for wound healing. 2. Monitor PO intake, wt, labs and skin integrity 3. F/U as moderate risk in 3-5 days Expected Outcomes/Goals Expected Outcomes/Goals 1. PO intake to meet at least 75% of nutritional needs. 2. Wt stability, skin to remain intact, labs to approach WNL.
--- NOTE | 2018-09-21 23:44 | Progress Notes ---
DATE: 09/21/2018 PATIENT'S ID: A 58-year-old male. SUBJECTIVE: The patient seen and examined. The patient lying in the bed. The patient is nonverbal. PHYSICAL EXAMINATION: VITAL SIGNS: Temperature is 97, pulse is 71, respiratory rate is 18, blood pressure is 164/90. HEENT: No facial asymmetry. NECK: Supple, no JVD. HEART: Regular. LUNGS: Clear to auscultate. ABDOMEN: Soft. No guarding, no rigidity. Bowel sounds present. No palpable mass. EXTREMITIES: No edema. Bilateral foot drop noted with significant spasticity. AVAILABLE DIAGNOSTIC DATA: CT scan of the abdomen and pelvis remarkable for diffuse bladder wall thickening with inflammatory changes, nonspecific perinephric inflammatory changes, fecal impaction, diverticulosis, 1.1 cm low density lesion consistent with infection or inflammatory lesion, anasarca, area of soft tissue density in the right buttock consistent with decubitus ulcer, basal atelectatic changes also noted. LABORATORY DATA: White count of 9.8, hemoglobin 14.3, platelet count 205. BUN and creatinine is 9 and 0.5, potassium 3.8. CLINICAL IMPRESSION: 1. Providencia rettgeri urinary tract infection and pyelonephritis. 2. Diverticulosis. 3. Fecal impaction. 4. Hypertension. 5. Peripheral vascular disease. 6. Alzheimer dementia. 7. Degenerative joint disease. 8. Required total care. PLAN: 1. Continue IV antibiotic. 2. General nursing care. 3. Avoid constipation and adjust anti-constipation medication. 4. General nursing care. 5. Follow lab. 6. Follow consult recommendation. 7. Care plan reviewed and discussed with staff. JOB# [id number]
[2018-09-22] MEDS: Vancomycin HCl 1.5 GM in Sodium Chloride 0.9% 500 ML IV SCH ×3 (00:52→17:34)
[2018-09-22] MEDS: D5-0.9%NS 1,000 ML IV SCH ×4 (05:36→23:49)
[2018-09-22] MEDS: Albuterol/Ipratropium Neb 3 ML AERS HHN SCH ×3 (06:36→18:30)
[2018-09-22] MEDS: Multivitamin w/ Minerals Tab PO SCH (09:23)
[2018-09-22] MEDS: Docusate Sodium/Senna Tab PO SCH ×2 (09:24→16:06)
[2018-09-22] MEDS: POLYETHYLENE GLYCOL 3350 17 GM PACK PO SCH (09:25)
[2018-09-22] MEDS: Pantoprazole 40 mg/Packet PO SCH (09:25)
[2018-09-22] MEDS: Venelex 60gm Tube TP SCH (09:25)
[2018-09-22] MEDS: Hydrocodone/APAP 10 mg/325 mg Tab PO PRN (12:01)
--- NOTE | 2018-09-22 15:05 | Infectious Disease Prog Note ---
Infectious Disease Subjective - Review of Systems Service Date: 09/22/18 Subjective: doing well, no fever Infectious Disease Objective - Results Result Diagrams: 09/21/18 08:10 09/21/18 08:10 Recent Labs: Laboratory Last Values WBC 9.8 Th/cmm (4.8-10.8) 09/21/18 08:10 RBC 4.57 Mil/cmm (4.30-5.70) 09/21/18 08:10 Hgb 14.3 gm/dL (12-16) 09/21/18 08:10 Hct 42.2 % (41.0-60) 09/21/18 08:10 MCV 92.3 fl (80-99) 09/21/18 08:10 MCH 31.3 pg (26.0-30.0) H 09/21/18 08:10 MCHC Differential 34.0 pg (28.0-36.0) 09/21/18 08:10 RDW 12.1 % (11.5-20.0) 09/21/18 08:10 Plt Count 205 Th/cmm (150-400) 09/21/18 08:10 MPV 7.0 fl 09/21/18 08:10 Add Manual Diff YES 09/19/18 05:30 Neutrophils % 74.4 % (40.0-80.0) 09/21/18 08:10 Band Neutrophils % 1 % (0-10) 09/19/18 05:30 Lymphocytes % 19.6 % (20.0-50.0) L 09/21/18 08:10 Monocytes % 2.3 % (2.0-10.0) 09/21/18 08:10 Eosinophils % 3.1 % (0.0-5.0) 09/21/18 08:10 Basophils % 0.6 % (0.0-2.0) 09/21/18 08:10 Neutrophils (Manual) 79 % (40-80) 09/19/18 05:30 Lymphocytes 13 % (20-50) L 09/19/18 05:30 Monocytes 6 % (2-10) 09/19/18 05:30 Eosinophils 1 % (0-5) 09/19/18 05:30 Basophils 0 % (0-3) 09/19/18 05:30 PT 11.0 SECONDS (9.5-11.5) 09/17/18 12:09 INR 1.06 (0.5-1.4) 09/17/18 12:09 PTT (Actin FS) 29.2 SECONDS (26.0-38.0) 09/17/18 12:09 Sodium 136 mEq/L (136-145) 09/21/18 08:10 Potassium 3.8 mEq/L (3.5-5.1) 09/21/18 08:10 Chloride 105 mEq/L (98-107) 09/21/18 08:10 Carbon Dioxide 23.9 mEq/L (21.0-31.0) 09/21/18 08:10 Anion Gap 10.9 (7.0-16.0) 09/21/18 08:10 BUN 9 mg/dL (7-25) 09/21/18 08:10 Creatinine 0.5 mg/dL (0.7-1.3) L 09/21/18 08:10 Est GFR ( Amer) > 60.0 ml/min (>90) 09/21/18 08:10 Est GFR (Non-Af Amer) > 60.0 ml/min 09/21/18 08:10 BUN/Creatinine Ratio 18.0 09/21/18 08:10 Glucose 119 mg/dL (70-105) H 09/21/18 08:10 POC Glucose 90 MG/DL (70 - 105) 09/22/18 11:22 Whole Bld Lactic Acid 1.62 mmol/L (0.60-1.99) 09/17/18 12:09 Calcium 9.0 mg/dL (8.6-10.3) 09/21/18 08:10 Total Bilirubin 0.7 mg/dL (0.3-1.0) 09/21/18 08:10 AST 28 U/L (13-39) 09/21/18 08:10 ALT 50 U/L (7-52) 09/21/18 08:10 Alkaline Phosphatase 60 U/L (34-104) 09/21/18 08:10 Creatine Kinase 57 U/L (30-223) 09/17/18 12:09 Troponin I < 0.01 ng/mL (0.01-0.05) L 09/17/18 12:09 Total Protein 6.6 gm/dL (6.0-8.3) 09/21/18 08:10 Albumin 3.3 gm/dL (4.2-5.5) L 09/21/18 08:10 Globulin 3.3 gm/dL 09/21/18 08:10 Albumin/Globulin Ratio 1.0 (1.0-1.8) 09/21/18 08:10 Amylase 49 U/L (29-103) 09/17/18 12:09 Lipase 38 U/L (11-82) 09/17/18 12:09 Urine Source MIDSTREAM 09/17/18 12:00 Urine Color BROWN 09/17/18 12:00 Urine Clarity CLOUDY (CLEAR) 09/17/18 12:00 Urine pH 5.0 (4.6 - 8.0) 09/17/18 12:00 Ur Specific [place] 1.025 (1.005-1.030) 09/17/18 12:00 Urine Protein >=300 mg/dL (NEGATIVE) 09/17/18 12:00 Urine Glucose (UA) NEGATIVE mg/dL (NEGATIVE) 09/17/18 12:00 Urine Ketones TRACE mg/dL (NEGATIVE) 09/17/18 12:00 Urine Blood LARGE (NEGATIVE) H 09/17/18 12:00 Urine Nitrate NEGATIVE (NEGATIVE) 09/17/18 12:00 Urine Bilirubin NEGATIVE (NEGATIVE) 09/17/18 12:00 Urine Urobilinogen 0.2 E.U./dL (0.2 - 1.0) 09/17/18 12:00 Ur Leukocyte Esterase MODERATE (NEGATIVE) H 09/17/18 12:00 Urine RBC 50-100 /hpf (0-5) H 09/17/18 12:00 Urine WBC >100 /hpf (0-5) H 09/17/18 12:00 Ur Epithelial Cells FEW /lpf (FEW) 09/17/18 12:00 Urine Bacteria MODERATE /hpf (NONE SEEN) H 09/17/18 12:00 - Physical Exam Vitals and I&O: Vital Signs Temp 98.0 F 09/22/18 11:48 Pulse 63 09/22/18 13:17 Resp 18 09/22/18 13:17 BP 118/76 09/22/18 11:48 Pulse Ox 95 09/22/18 13:17 Intake & Output 0509/22/18 09/22/18 18:59 06:59 18:59 Intake Total 480 2262.667 550 Output Total 2550 2200 Balance -2070 62.667 550 Weight (lbs) 108.862 kg 108.862 kg Intake: Intake, IV Amount 100 2062.667 550 D5-0.9%Ns 1,000 ml @ 80 1462.667 mls/hr IV .[id number] [facility] Rx #:[id number] Piperacillin Sodium/ 100 100 50 Tazobact 3.375 gm In Sodium Chloride 0.9% 50 ml @ 100 mls/hr IV Q6HR [facility] Rx#:[id number] Vancomycin HCl 1.5 gm In 500 500 Sodium Chloride 0.9% 500 ml @ 250 mls/hr IV Q8H [facility] Rx#:[id number] Oral 380 200 Output: Urine 2250 2000 Stool 300 200 Other: Stool Characteristics Liquid Liquid Liquid Brown Brown Brown Weight Source Bedscale Bedscale Active Medications: Current Medications Acetaminophen (Tylenol) 650 mg PO Q6H PRN PRN Reason: Mild Pain/Headache/T above 101 Stop: 11/16/18 14:49 Acetaminophen/Hydrocodone Bitart ([place] 10 Mg/325 Mg) 1 tab PO Q6H PRN PRN Reason: Moderate Pain Stop: 11/16/18 14:59 Last Admin: 09/22/18 12:01 Dose: 1 tab Albuterol/Ipratropium (Duoneb Neb) 3 ml HHN [id number] JOSEFA Stop: 11/16/18 18:59 Last Admin: 09/22/18 13:17 Dose: 3 ml Ascorbic Acid (Vitamin C) 500 mg PO DAILY JOSEFA Stop: 11/16/18 16:59 Last Admin: 09/22/18 09:25 Dose: 500 mg [place] Oil/[place] Balsam/Trypsin (Venelex) 1 appl TP DAILY JOSEFA Stop: 11/18/18 08:59 Last Admin: 09/22/18 09:25 Dose: 1 appl Donepezil HCl (Aricept) 10 mg PO HS JOSEFA Stop: 11/16/18 20:59 Last Admin: 09/21/18 20:47 Dose: 10 mg Enalapril Maleate (Vasotec) 10 mg PO DAILY JOSEFA Stop: 11/16/18 16:59 Last Admin: 09/22/18 09:24 Dose: 10 mg Gabapentin (Neurontin) 800 mg PO TID JOSEFA Stop: 11/16/18 20:59 Last Admin: 09/22/18 13:49 Dose: 800 mg Piperacillin Sod/Tazobactam (Sod 3.375 gm/ Sodium Chloride) 50 mls @ 100 mls/ hr IV Q6HR JOSEFA Stop: 11/16/18 17:59 Last Infusion: 09/22/18 14:09 Dose: Infused Dextrose/Sodium Chloride (D5-0.9%Ns) 1,000 mls @ 80 mls/hr IV .[id number] JOSEFA Stop: 11/16/18 16:14 Last Admin: 09/22/18 05:36 Dose: 80 mls/hr Vancomycin HCl 1.5 gm/ Sodium (Chloride) 500 mls @ 250 mls/hr IV Q8H JOSEFA Stop: 11/21/18 00:59 Last Infusion: 09/22/18 12:04 Dose: Infused Levetiracetam (Keppra) 500 mg PO BID JOSEFA Stop: 11/16/18 16:59 Last Admin: 09/22/18 09:24 Dose: 500 mg Miscellaneous (Vancomycin Iv Per Pharmacy) 1 ea MC PRN JOSEFA Stop: 11/20/18 15:14 Mupirocin (Bactroban Oint) 1 appl NS BID JOSEFA Stop: 09/24/18 09:01 Last Admin: 09/22/18 09:35 Dose: 1 appl Pantoprazole Sodium (Protonix) 20 mg PO DAILY JOSEFA Stop: 11/17/18 08:59 Last Admin: 09/22/18 09:25 Dose: 20 mg Polyethylene Glycol (Miralax) 17 gm PO DAILY JOSEFA Stop: 11/20/18 08:59 Last Admin: 09/22/18 09:25 Dose: 17 gm Sennosides (Senna Plus 50 Mg-8.6 Mg) 1 tab PO BID JOSEFA Stop: 11/20/18 08:59 Last Admin: 09/22/18 09:24 Dose: 1 tab Tamsulosin HCl (Flomax) 0.4 mg PO DAILY JOSEFA Stop: 11/17/18 08:59 Last Admin: 09/22/18 09:25 Dose: 0.4 mg Temazepam (Restoril) 15 mg PO HS PRN; Protocol PRN Reason: Insomnia Stop: 11/16/18 14:49 Tizanidine HCl (Zanaflex) 4 mg PO TID JOSEFA Stop: 11/16/18 20:59 Last Admin: 09/22/18 13:50 Dose: 4 mg Zinc Sulfate (Zinc Sulfate) 220 mg PO DAILY JOSEFA Stop: 11/17/18 08:59 Last Admin: 09/22/18 09:24 Dose: 220 mg General: no acute distress, well developed, well nourished HEENT: atraumatic, normocephalic, PERRLA, EOMI Neck: supple, no thyromegaly Cardiovascular: S1S2, regular Lungs: clear to auscultation bilaterally, clear to percussion Abdomen: soft, no tender, no distended Extremities: no cyanosis, no clubbing, no edema Neurological: awake, alert, oriented Skin: intact - Procedures Procedures: Procedures Procedure Code Date BYPASS SIGMOID COLON TO CUTANEOUS, OPEN APPROACH [id number] 07/14/17 JASBIR SUBQ TISSUE 20 SQ CM/< 05120 07/14/17 EXCISION OF R UP LEG SUBCU/FASCIA, OPEN APPROACH [id number] 07/14/17 Infectious Disease Assmt/Plan - Assessment Assessment: 1. Sepsis. resolving. 2. Urinary tract infection, pyelonephritis. 3. Altered mental status secondary to metabolic encephalopathy. improving. 4. Acute renal failure, acute kidney injury, likely secondary to dehydration. Improving. 5. Right hip wound, no sign of infection. chronic osteomyelitis. 6. History of hypertension. 7. Dyslipidemia. 8. Severe dementia. - Plan Plan: Will continue Zosyn. continue vanco IV Wound care. Nutritional Asmnt/Malnutr-PDOC - Dietary Evaluation Malnutrition Findings (Please click <Entered> for more info): Nutritional Asmnt/Malnutrition Start: 09/18/18 16: 11 Text: Status: Complete Freq: Protocol: Document 09/18/18 16:15 LCHENG (Rec: 09/18/18 16:25 LCELEANORG [email or web address]) Nutritional Asmnt/Malnutrition Patient General Information Nutritional Screening High Risk Consult Diagnosis PNA, sepsis Pertinent Medical Hx/Surgical Hx HTN, dyslipidemia, PUD/GERD, dementia, cholecystectomy Subjective Information Consult received for stage IV pressure ulcer right sacral area. Pt seen sleeping in bed at time of visit. Family at bedside stated pt ate almost everything this morning per nurse reported. No food preference stated. Current Diet Order/ Nutrition Support pureed Pertinent Medications vit C, D5-0.9%ns, colace, protonix, piperacillin, zinc Pertinent Labs 09/18 Cl 109, BUN 39, glucose 121, alb 3.2 Nutritional Hx/Data Height 1.93 m Height (Calculated Centimeters) 193.0 Current Weight (lbs) 105.233 kg Weight (Calculated Kilograms) 105.2 Weight (Calculated Grams) 721285.4 [place] Body Weight 202 Body Mass Index (BMI) 28.2 Weight Status Overweight GI Symptoms GI Symptoms None Last BM 09/17 x 2 Difficult in: None Skin Integrity/Comment: stage IV pressure ulcer to right buttock Current %PO Good (75-100%) Estimated Nutritional Goals BEE in Kcals: Using Current wt Calories/Kcals/Kg 23-27 Kcals Calculated 0275-4365 Protein: Using Current wt Protein g/k-1.2 Protein Calculated 105-126 Fluid: ml 2415-2835ml (1ml/kcal) Nutritional Problem 1. Problem Problem increased nutrition needs Etiology impaired skin integrity Signs/Symptoms: stage IV pressure ulcer Intervention/Recommendation Comments 1. Continue with pureed diet as ordered. Add [place] BID for wound healing. 2. Monitor PO intake, wt, labs and skin integrity 3. F/U as moderate risk in 3-5 days Expected Outcomes/Goals Expected Outcomes/Goals 1. PO intake to meet at least 75% of nutritional needs. 2. Wt stability, skin to remain intact, labs to approach WNL.
[2018-09-23] MEDS: Vancomycin HCl 1.5 GM in Sodium Chloride 0.9% 500 ML IV SCH (01:06)
[2018-09-23] MEDS: Albuterol/Ipratropium Neb 3 ML AERS HHN SCH ×3 (06:56→18:56)
[2018-09-23] MEDS: Pantoprazole 40 mg/Packet PO SCH (09:13)
[2018-09-23] MEDS: Multivitamin w/ Minerals Tab PO SCH (09:13)
[2018-09-23] MEDS: Docusate Sodium/Senna Tab PO SCH ×2 (09:13→16:13)
[2018-09-23] MEDS: Venelex 60gm Tube TP SCH (09:14)
[2018-09-23] MEDS: POLYETHYLENE GLYCOL 3350 17 GM PACK PO SCH (09:15)
--- NOTE | 2018-09-23 11:49 | Progress Notes ---
DATE: 09/22/2018 SUBJECTIVE: The patient is seen and examined. The patient is lying in the bed. The patient is eating his dinner. The patient was diaphoretic earlier, but not anymore. OBJECTIVE: VITAL SIGNS: Temperature 98.6, pulse 69, respiratory rate 20, blood pressure 109/76. HEENT: No facial asymmetry. NECK: Supple, no JVD. HEART: Regular. LUNGS: Clear to auscultation. ABDOMEN: Soft. No guarding or rigidity. Bowel sounds are present. No palpable mass. EXTREMITIES: No edema. CLINICAL IMPRESSION: 1. Complicated urinary tract infection. 2. Pyelonephritis. 3. Alzheimer dementia. 4. Hypertension. 5. Peripheral vascular disease. 6. Obesity. 7. Degenerative joint disease. 8. Stage 4 decubitus wound. 9. Right hip wound. 10. Debility. 11. Seizure disorder. I have [facility] evaluation and transfer in view of the patient's multiple medical problems and needs long-term acute care. Once the patient accepted, we will transfer this patient. Meanwhile, continue current treatment plan with Wound Care and Nutritional Support and general nursing care. JOB# [id number]
--- NOTE | 2018-09-23 21:20 | Infectious Disease Prog Note ---
Infectious Disease Subjective - Review of Systems Service Date: 09/23/18 Subjective: doing well, no fever Infectious Disease Objective - Results Result Diagrams: 09/21/18 08:10 09/21/18 08:10 Recent Labs: Laboratory Last Values WBC 9.8 Th/cmm (4.8-10.8) 09/21/18 08:10 RBC 4.57 Mil/cmm (4.30-5.70) 09/21/18 08:10 Hgb 14.3 gm/dL (12-16) 09/21/18 08:10 Hct 42.2 % (41.0-60) 09/21/18 08:10 MCV 92.3 fl (80-99) 09/21/18 08:10 MCH 31.3 pg (26.0-30.0) H 09/21/18 08:10 MCHC Differential 34.0 pg (28.0-36.0) 09/21/18 08:10 RDW 12.1 % (11.5-20.0) 09/21/18 08:10 Plt Count 205 Th/cmm (150-400) 09/21/18 08:10 MPV 7.0 fl 09/21/18 08:10 Add Manual Diff YES 09/19/18 05:30 Neutrophils % 74.4 % (40.0-80.0) 09/21/18 08:10 Band Neutrophils % 1 % (0-10) 09/19/18 05:30 Lymphocytes % 19.6 % (20.0-50.0) L 09/21/18 08:10 Monocytes % 2.3 % (2.0-10.0) 09/21/18 08:10 Eosinophils % 3.1 % (0.0-5.0) 09/21/18 08:10 Basophils % 0.6 % (0.0-2.0) 09/21/18 08:10 Neutrophils (Manual) 79 % (40-80) 09/19/18 05:30 Lymphocytes 13 % (20-50) L 09/19/18 05:30 Monocytes 6 % (2-10) 09/19/18 05:30 Eosinophils 1 % (0-5) 09/19/18 05:30 Basophils 0 % (0-3) 09/19/18 05:30 PT 11.0 SECONDS (9.5-11.5) 09/17/18 12:09 INR 1.06 (0.5-1.4) 09/17/18 12:09 PTT (Actin FS) 29.2 SECONDS (26.0-38.0) 09/17/18 12:09 Sodium 136 mEq/L (136-145) 09/21/18 08:10 Potassium 3.8 mEq/L (3.5-5.1) 09/21/18 08:10 Chloride 105 mEq/L (98-107) 09/21/18 08:10 Carbon Dioxide 23.9 mEq/L (21.0-31.0) 09/21/18 08:10 Anion Gap 10.9 (7.0-16.0) 09/21/18 08:10 BUN 9 mg/dL (7-25) 09/21/18 08:10 Creatinine 0.5 mg/dL (0.7-1.3) L 09/21/18 08:10 Est GFR ( Amer) > 60.0 ml/min (>90) 09/21/18 08:10 Est GFR (Non-Af Amer) > 60.0 ml/min 09/21/18 08:10 BUN/Creatinine Ratio 18.0 09/21/18 08:10 Glucose 119 mg/dL (70-105) H 09/21/18 08:10 POC Glucose 90 MG/DL (70 - 105) 09/22/18 11:22 Whole Bld Lactic Acid 1.62 mmol/L (0.60-1.99) 09/17/18 12:09 Calcium 9.0 mg/dL (8.6-10.3) 09/21/18 08:10 Total Bilirubin 0.7 mg/dL (0.3-1.0) 09/21/18 08:10 AST 28 U/L (13-39) 09/21/18 08:10 ALT 50 U/L (7-52) 09/21/18 08:10 Alkaline Phosphatase 60 U/L (34-104) 09/21/18 08:10 Creatine Kinase 57 U/L (30-223) 09/17/18 12:09 Troponin I < 0.01 ng/mL (0.01-0.05) L 09/17/18 12:09 Total Protein 6.6 gm/dL (6.0-8.3) 09/21/18 08:10 Albumin 3.3 gm/dL (4.2-5.5) L 09/21/18 08:10 Globulin 3.3 gm/dL 09/21/18 08:10 Albumin/Globulin Ratio 1.0 (1.0-1.8) 09/21/18 08:10 Amylase 49 U/L (29-103) 09/17/18 12:09 Lipase 38 U/L (11-82) 09/17/18 12:09 Urine Source MIDSTREAM 09/17/18 12:00 Urine Color BROWN 09/17/18 12:00 Urine Clarity CLOUDY (CLEAR) 09/17/18 12:00 Urine pH 5.0 (4.6 - 8.0) 09/17/18 12:00 Ur Specific [place] 1.025 (1.005-1.030) 09/17/18 12:00 Urine Protein >=300 mg/dL (NEGATIVE) 09/17/18 12:00 Urine Glucose (UA) NEGATIVE mg/dL (NEGATIVE) 09/17/18 12:00 Urine Ketones TRACE mg/dL (NEGATIVE) 09/17/18 12:00 Urine Blood LARGE (NEGATIVE) H 09/17/18 12:00 Urine Nitrate NEGATIVE (NEGATIVE) 09/17/18 12:00 Urine Bilirubin NEGATIVE (NEGATIVE) 09/17/18 12:00 Urine Urobilinogen 0.2 E.U./dL (0.2 - 1.0) 09/17/18 12:00 Ur Leukocyte Esterase MODERATE (NEGATIVE) H 09/17/18 12:00 Urine RBC 50-100 /hpf (0-5) H 09/17/18 12:00 Urine WBC >100 /hpf (0-5) H 09/17/18 12:00 Ur Epithelial Cells FEW /lpf (FEW) 09/17/18 12:00 Urine Bacteria MODERATE /hpf (NONE SEEN) H 09/17/18 12:00 Vancomycin Trough 25.7 ug/mL (5-10) H 09/23/18 07:37 - Physical Exam Vitals and I&O: Vital Signs Temp 98.0 F 09/23/18 20:00 Pulse 72 09/23/18 20:00 Resp 19 09/23/18 20:00 BP 138/63 09/23/18 20:00 Pulse Ox 98 09/23/18 20:00 Intake & Output 09/23/18 09/23/18 09/24/18 06:59 18:59 06:59 Intake Total 1250 1020 Output Total 1100 2500 Balance 150 -1480 Weight (lbs) 108.862 kg 108.862 kg Intake: Intake, IV Amount 1050 300 Piperacillin Sodium/ 50 Tazobact 3.375 gm In Sodium Chloride 0.9% 50 ml @ 100 mls/hr IV Q6HR [facility] Rx#:[id number] Piperacillin Sodium/ 50 Tazobact 3.375 gm In Sodium Chloride 0.9% 50 ml @ 100 mls/hr IV Q6HR [facility] Rx#:[id number] Vancomycin HCl 1.25 gm In 250 Sodium Chloride 0.9% 250 ml @ 165 mls/hr IV Q8HR@ 0100,0900,1700 [facility] Rx#: [id number] Vancomycin HCl 1.5 gm In 1000 Sodium Chloride 0.9% 500 ml @ 250 mls/hr IV Q8H [facility] Rx#:[id number] Oral 200 720 Output: Urine 1000 2300 Stool 100 200 Other: Stool Characteristics Liquid Liquid Liquid Brown Brown Brown Weight Source Bedscale Bedscale Active Medications: Current Medications Acetaminophen (Tylenol) 650 mg PO Q6H PRN PRN Reason: Mild Pain/Headache/T above 101 Stop: 11/16/18 14:49 Acetaminophen/Hydrocodone Bitart ([place] 10 Mg/325 Mg) 1 tab PO Q6H PRN PRN Reason: Moderate Pain Stop: 11/16/18 14:59 Last Admin: 09/22/18 12:01 Dose: 1 tab Albuterol/Ipratropium (Duoneb Neb) 3 ml HHN [id number] [facility] Stop: 11/16/18 18:59 Last Admin: 09/23/18 18:56 Dose: 3 ml Ascorbic Acid (Vitamin C) 500 mg PO DAILY [facility] Stop: 11/16/18 16:59 Last Admin: 09/23/18 09:13 Dose: 500 mg Shepherd Oil/[place] Balsam/Trypsin (Venelex) 1 appl TP DAILY [facility] Stop: 11/18/18 08:59 Last Admin: 09/23/18 09:14 Dose: 1 appl Donepezil HCl (Aricept) 10 mg PO HS [facility] Stop: 11/16/18 20:59 Last Admin: 09/23/18 20:30 Dose: 10 mg Enalapril Maleate (Vasotec) 10 mg PO DAILY [facility] Stop: 11/16/18 16:59 Last Admin: 09/23/18 09:12 Dose: 10 mg Gabapentin (Neurontin) 800 mg PO TID [facility] Stop: 11/16/18 20:59 Last Admin: 09/23/18 20:30 Dose: 800 mg Dextrose/Sodium Chloride (D5-0.9%Ns) 1,000 mls @ 80 mls/hr IV .[id number] [facility] Stop: 11/16/18 16:14 Last Admin: 09/22/18 23:49 Dose: 80 mls/hr Vancomycin HCl 1.25 gm/ Sodium (Chloride) 250 mls @ 165 mls/hr IV Q8HR@0100, 0900,1700 [facility] Stop: 11/22/18 08:59 Last Admin: 09/23/18 16:33 Dose: 165 mls/hr Piperacillin Sod/Tazobactam (Sod 3.375 gm/ Sodium Chloride) 50 mls @ 100 mls/ hr IV Q6HR [facility] Stop: 11/22/18 11:59 Last Admin: 09/23/18 19:06 Dose: 100 mls/hr Levetiracetam (Keppra) 500 mg PO BID [facility] Stop: 11/16/18 16:59 Last Admin: 09/23/18 16:13 Dose: 500 mg Miscellaneous (Vancomycin Iv Per Pharmacy) 1 ea MC PRN [facility] Stop: 11/20/18 15:14 Mupirocin (Bactroban Oint) 1 appl NS BID [facility] Stop: 09/24/18 09:01 Last Admin: 09/23/18 16:11 Dose: 1 appl Pantoprazole Sodium (Protonix) 20 mg PO DAILY [facility] Stop: 11/17/18 08:59 Last Admin: 09/23/18 09:13 Dose: 20 mg Polyethylene Glycol (Miralax) 17 gm PO DAILY [facility] Stop: 11/20/18 08:59 Last Admin: 09/23/18 09:15 Dose: 17 gm Sennosides (Senna Plus 50 Mg-8.6 Mg) 1 tab PO BID [facility] Stop: 11/20/18 08:59 Last Admin: 09/23/18 16:13 Dose: 1 tab Tamsulosin HCl (Flomax) 0.4 mg PO DAILY [facility] Stop: 11/17/18 08:59 Last Admin: 09/23/18 09:13 Dose: 0.4 mg Temazepam (Restoril) 15 mg PO HS PRN; Protocol PRN Reason: Insomnia Stop: 11/16/18 14:49 Tizanidine HCl (Zanaflex) 4 mg PO TID [facility] Stop: 11/16/18 20:59 Last Admin: 09/23/18 20:29 Dose: 4 mg Zinc Sulfate (Zinc Sulfate) 220 mg PO DAILY [facility] Stop: 11/17/18 08:59 Last Admin: 09/23/18 09:13 Dose: 220 mg General: no acute distress, well developed, well nourished HEENT: atraumatic, normocephalic, PERRLA, EOMI Neck: supple, no thyromegaly Cardiovascular: S1S2, regular Lungs: clear to auscultation bilaterally, clear to percussion Abdomen: soft, no tender, no distended, no mass Extremities: no cyanosis, no clubbing, no edema Neurological: awake, alert Skin: other (right hip wound) - Procedures Procedures: Procedures Procedure Code Date BYPASS SIGMOID COLON TO CUTANEOUS, OPEN APPROACH [id number] 07/14/17 JASBIR SUBQ TISSUE 20 SQ CM/< [id number] 07/14/17 EXCISION OF R UP LEG SUBCU/FASCIA, OPEN APPROACH [id number] 07/14/17 Infectious Disease Assmt/Plan - Assessment Assessment: 1. Sepsis. resolving. 2. Urinary tract infection, pyelonephritis. 3. Altered mental status secondary to metabolic encephalopathy. improving. 4. Acute renal failure, acute kidney injury, likely secondary to dehydration. Improving. 5. Right hip wound, no sign of infection. chronic osteomyelitis. 6. History of hypertension. 7. Dyslipidemia. 8. Severe dementia. - Plan Plan: Will continue Zosyn. continue vanco IV Wound care. Agree with LTAC. 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 Pt seen sleeping in bed at time of visit. Family at bedside stated pt ate almost everything this morning per nurse reported. No food preference stated. Current Diet Order/ Nutrition Support pureed Pertinent Medications vit C, D5-0.9%ns, colace, protonix, piperacillin, zinc Pertinent Labs 09/18 Cl 109, BUN 39, glucose 121, alb 3.2 Nutritional Hx/Data Height 1.93 m Height (Calculated Centimeters) 193.0 Current Weight (lbs) 105.233 kg Weight (Calculated Kilograms) 105.2 Weight (Calculated Grams) 023262.4 [place] Body Weight 202 Body Mass Index (BMI) 28.2 Weight Status Overweight GI Symptoms GI Symptoms None Last BM 09/17 x 2 Difficult in: None Skin Integrity/Comment: stage IV pressure ulcer to right buttock Current %PO Good (75-100%) Estimated Nutritional Goals BEE in Kcals: Using Current wt Calories/Kcals/Kg 23-27 Kcals Calculated 0489-5715 Protein: Using Current wt Protein g/k-1.2 Protein Calculated 105-126 Fluid: ml 2415-2835ml (1ml/kcal) Nutritional Problem 1. Problem Problem increased nutrition needs Etiology impaired skin integrity Signs/Symptoms: stage IV pressure ulcer Intervention/Recommendation Comments 1. Continue with pureed diet as ordered. Add Maurice BID for wound healing. 2. Monitor PO intake, wt, labs and skin integrity 3. F/U as moderate risk in 3-5 days Expected Outcomes/Goals Expected Outcomes/Goals 1. PO intake to meet at least 75% of nutritional needs. 2. Wt stability, skin to remain intact, labs to approach WNL.
--- NOTE | 2018-09-23 23:46 | Progress Notes ---
DATE: 09/23/2018 DATE OF SERVICE: 09/23/2018 IDENTIFICATION: This is a 58-year-old male. SUBJECTIVE: The patient seen and examined. The patient is nonverbal. The patient's at bedside. No new event. The patient has a fair appetite. The patient remained afebrile. PHYSICAL EXAMINATION: VITAL SIGNS: Temperature 98.7, pulse 78, respiratory rate 18, blood pressure 145/76. HEENT: No facial asymmetry, mask-like face noted. NECK: Supple, no JVD. HEART: Regular. CHEST: Lungs equal in expansion, no expiratory wheezing. ABDOMEN: Soft. No guarding, no rigidity. Bowel sounds present. No palpable mass. EXTREMITIES: No edema. Spasticity of the upper and lower extremities noted. AVAILABLE DIAGNOSTIC DATA: Reviewed. CLINICAL IMPRESSION: 1. Complicated urinary tract infection. 2. Pyelonephritis. 3. Hypertension. 4. Dementia. 5. Peripheral vascular disease. 6. Degenerative joint disease. 7. Requires total care. PLAN: 1. Antibiotic. 2. Wound care. 3. General nursing care. 4. Nutritional support. 5. Chronic disease management. 6. Follow labs. 7. Follow senior staff consultant's recommendation. 8. Care plan reviewed and discussed with staff. JOB# [id number]
[2018-09-24] MEDS: D5-0.9%NS 1,000 ML IV SCH ×2 (00:06→13:43)
[2018-09-24] MEDS: Albuterol/Ipratropium Neb 3 ML AERS HHN SCH ×2 (06:50→12:11)
[2018-09-24] MEDS: POLYETHYLENE GLYCOL 3350 17 GM PACK PO SCH (09:37)
[2018-09-24] MEDS: Venelex 60gm Tube TP SCH (09:37)
[2018-09-24] MEDS: Pantoprazole 40 mg/Packet PO SCH (09:38)
[2018-09-24] MEDS: Multivitamin w/ Minerals Tab PO SCH (09:38)
[2018-09-24] MEDS: Docusate Sodium/Senna Tab PO SCH ×2 (09:38→17:24)
--- NOTE | 2018-09-24 10:09 | Discharge Summary ---
DATE OF DISCHARGE: 09/24/2018 PRINCIPAL DIAGNOSES: 1. Providencia rettgeri complicated urinary tract infection. 2. Pyelonephritis. 3. Methicillin-resistant Staphylococcus aureus colonization. 4. Seizure disorder. 5. Hypertension. 6. Peripheral vascular disease. 7. Alzheimer's type dementia. 8. Degenerative joint disease. 9. Right hip wound, stage 4. 10. Require total care. 11. Bilateral ear wax. 12. Acute kidney injury, resolved. BRIEF STATEMENT FOR THE REASON FOR ADMISSION: A 58-year-old male resident of [facility], transferred to acute care facility after the patient was noted to have high-grade fever and altered mental status. The patient was worked up at the Emergency Room and noted to have complicated urinary tract infection with acute kidney injury. The patient was advised to be admitted in the hospital for further treatment. Please refer to my medical H and P for further information. HOSPITAL COURSE: The patient was admitted to telemetry unit. The patient was given oxygen, nebulizer treatment, IV fluid, IV antibiotic. Infectious Disease consultation has been requested. Appropriate home meds were reconciled. General nursing care was provided and care plan was discussed with the patient's . The patient did have a CT scan of abdomen and pelvis, which did reveal the patient had evidence of pyelonephritis. The patient was also noted to have right buttock wound as well with evidence of chronic osteomyelitis. The patient was followed by Infectious Disease, continues to receive antibiotic and general nursing care as well. The patient's was informed about the patient's condition, diagnosis and treatment plan. In the view of chronic osteomyelitis along with pyelonephritis and right hip wound, the patient is transferred to [facility] for further care. The patient will be followed by myself and consultants. [facility]# [id number]
--- NOTE | 2018-09-24 10:20 | Progress Notes ---
DATE: 09/24/2018 IDENTIFICATION: A 58-year-old male. SUBJECTIVE: The patient seen and examined. The patient is lying in the bed. No new event. The patient is accepted to a long-term acute care facility. PHYSICAL EXAMINATION: VITAL SIGNS: Temperature 97.9, pulse is 80, respiratory rate is 20, blood pressure is 130/80. HEENT: No facial asymmetry. NECK: Supple, no JVD. HEART: Regular. CHEST AND LUNGS: Equal in expansion, no expiratory wheezing. ABDOMEN: Soft. No guarding, no rigidity. Bowel sounds present. No palpable mass. EXTREMITIES: No edema. BACK: Right hip wound noted. CLINICAL IMPRESSION: 1. Complicated urinary tract infection. 2. Pyelonephritis. 3. Right hip wound. 4. Dementia. 5. Hypertension. 6. Peripheral vascular disease. 7. Degenerative joint disease. 8. Required total care. 9. Seizure disorder. PLAN: Transfer this patient to long-term acute care facility. The patient will be followed by myself and nurse by myself and [employer]ura sales consultant. JOB# [id number]
[2018-09-24] MEDS ORDERED: Vancomycin HCl 1.5 GM in Sodium Chloride 0.9% 500 ML IV SCH (11:00)
[2018-09-24] MEDS: Hydrocodone/APAP 10 mg/325 mg Tab PO PRN (17:24)
== END 2018-09-24 18:49 | DRG 871 ==
LOC: ER 11:04 → TELE 15:12
PROVIDERS: ADMIT Internal Medicine; ATTEND Internal Medicine
PROC: 5A09357 Assistance with Respiratory Ventilation, Less than 24 Consecutive Hours, Continuous Positive Airway Pressure (ICD-10-PCS; principal; 2018-09-17)
PROC: 5A09357 Assistance with Respiratory Ventilation, Less than 24 Consecutive Hours, Continuous Positive Airway Pressure (ICD-10-PCS; 2018-09-18)
PROC: 5A09357 Assistance with Respiratory Ventilation, Less than 24 Consecutive Hours, Continuous Positive Airway Pressure (ICD-10-PCS; 2018-09-19)
PROC: 5A09357 Assistance with Respiratory Ventilation, Less than 24 Consecutive Hours, Continuous Positive Airway Pressure (ICD-10-PCS; 2018-09-20)
PROC: 5A09357 Assistance with Respiratory Ventilation, Less than 24 Consecutive Hours, Continuous Positive Airway Pressure (ICD-10-PCS; 2018-09-23)
PROC: 5A09357 Assistance with Respiratory Ventilation, Less than 24 Consecutive Hours, Continuous Positive Airway Pressure (ICD-10-PCS; 2018-09-24)
DX: A41.9 Sepsis, unspecified organism (principal); L89.214 Pressure ulcer of right hip, stage 4; G93.41 Metabolic encephalopathy; J18.9 Pneumonia, unspecified organism; N17.9 Acute kidney failure, unspecified; N12 Tubulo-interstitial nephritis, not specified as acute or chronic; M86.68 Other chronic osteomyelitis, other site; I10 Essential (primary) hypertension; E78.5 Hyperlipidemia, unspecified; K21.9 Gastro-esophageal reflux disease without esophagitis; E86.0 Dehydration; G40.909 Epilepsy, unspecified, not intractable, without status epilepticus; E66.9 Obesity, unspecified; I73.9 Peripheral vascular disease, unspecified; G30.9 Alzheimer's disease, unspecified; F02.80 Dementia in other diseases classified elsewhere, unspecified severity, without behavioral disturbance, psychotic disturbance, mood disturbance, and anxiety; K57.30 Diverticulosis of large intestine without perforation or abscess without bleeding; K56.41 Fecal impaction; M19.90 Unspecified osteoarthritis, unspecified site; H61.23 Impacted cerumen, bilateral; Z74.01 Bed confinement status; Z22.322 Carrier or suspected carrier of Methicillin resistant Staphylococcus aureus; Z90.49 Acquired absence of other specified parts of digestive tract; Z86.718 Personal history of other venous thrombosis and embolism; Z68.29 Body mass index [BMI] 29.0-29.9, adult
CPT/HCPCS: 36415-UA; 71045-TC; 80053-TC; 80202-TC; 81001-TC; 82150-TC; 82550-TC; 82948-90; 83605; 83690-TC; 84484-TC; 85007-TC; 85025-TC; 85610-TC; 85730-TC; 87086-90; 93005; 94660; 94760; J0456; J0696; J2543; J3370; J7030; J7040; J7042; Z7610